=== PATIENT | male | born 1950 | race Caucasian/White ===

== ENCOUNTER 2023-06-04 12:17 | Day surgery (SDC) | payer MEDICARE, SELFPAY ==
--- NOTE | 2023-05-31 14:20 | PTCARENOTE ---
reviewed scanned ECG from 12/13/22; no actions requested.
[2023-06-04] VITALS (9 sets, daily range): BP systolic 119–162; BP diastolic 53–64; BMI 27.9
[2023-06-04 13:04] LABS: Hematocrit 35.1 % (39.0-52.0); Hemoglobin 11.6 g/dL (13.0-18.0); Mean Corpuscular Hgb 36.3 pg (27.0-31.0); Mean Corpuscular Volume 109.7 fL (80.0-94.0); Mean Platelet Volume 10.2 fL (7.4-10.4); Platelet Count 198 10^3/uL (130-400); Red Cell Dist. Width 14.4 % (11.5-14.5)
[2023-06-04 13:05] LABS: INR 0.98; PT 13.1 Sec (11.4-14.6)
[2023-06-04 13:06] LABS: APTT 30.9 Sec (23.4-35.0)
[2023-06-04 13:12] LABS: Blood Urea Nitrogen 41 mg/dl (9-20); Calcium 9.5 mg/dl (8.4-10.2); Carbon Dioxide 37 mmol/L (22-30); Chloride 95 mmol/L (98-107); Glucose 92 mg/dl (70-99); Potassium 4.6 mmol/L (3.5-5.1); Sodium 139 mmol/L (135-145); eGFR 7.23
[2023-06-04] MEDS: NSS 500 IV (13:19)
[2023-06-04] MEDS: PERIDEX 0.12% ORAL RINSE 15 ML PO (13:19)
[2023-06-04] MEDS: BACTROBAN NASAL 1 GRAM NASAL (13:19)
[2023-06-04] MEDS: VANCOCIN 200 IV (13:24)
--- NOTE | 2023-06-04 16:42 | W.SUR.PREOP ---
Pre-Operative Surgical Note
-
I have examined this patient prior to the performance of the scheduled procedure.
The patient's condition is unchanged from the time of the current History and
Physical and the patient is able to undergo the scheduled procedure.
--- NOTE | 2023-06-04 16:50 | OR.RPT ---
Operative Report
Operative Report
Date of Operation: 06/04/2023
Pre Op Diagnosis: Left upper extremity arteriovenous fistula for hemodialysis with report of problematic dialysis sessions
Post Op Diagnosis: Left upper extremity arteriovenous fistula for hemodialysis with report of problematic dialysis sessions
Procedure:
1.) Diagnostic left upper extremity fistulogram
2.) Central venogram
3.) Ultrasound guided access to the left upper arm AV fistula
Surgeon: Luis Alberto Cole III, MD
Crocodile Farmer: Vinh Faust MD PGY-1
Anesthesia: Sedation/local
Complications: None
Fluoroscopy:
2.4 minutes
12 mGy
3.03 DAP
History and Indications for Procedure: 73-year-old male with left upper extremity brachiocephalic AV fistula. On a recent visit to the office he reported recommendation from his dialysis center to have a fistulogram for problematic dialysis
sessions and history of prior fistulograms at an outside access center
Procedure in Detail: Bryan Saini was correctly identified and placed supine on the operating table. After adequate induction of anesthesia the left was positioned, prepped and draped in the usual sterile fashion. Preoperative antibiotics were
administered. A timeout procedure was performed with the nursing and anesthesia staff confirming the patient�s identity as well as the nature and laterality of the procedure.
Intraoperative ultrasound was performed on the AV access. This was a brachiocephalic arteriovenous fistula. Ultrasound demonstrated a patent fistula.
I identified a puncture site along the proximal fistula and infiltrated local anesthesia at this site. Under ultrasound guidance I accessed the fistula with a micropuncture needle facing towards the venous outflow and placed the micropuncture
sheath. I performed a fistulogram through the micropuncture sheath which demonstrated the following:
Fistulogram: Patent fistula with brisk flow through the cephalic vein. Patent cephalic arch. No evidence of venous outflow stenosis.
Central venogram: Widely patent central venous system with brisk flow and no evidence of stenosis.
A reflux fistulogram was performed by compressing the venous outflow of the fistula. 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 The anastomosis was patent with reflux of contrast
into the brachial artery and no clear evidence of stenosis.
Satisfied with this diagnostic result I then concluded the procedure. The micropuncture sheath was removed and direct manual pressure was held over the puncture site. Hemostasis was achieved. A sterile dressing was applied.
The patient tolerated the procedure well and was taken to the PACU in stable condition
Attestation: I was present and responsible for the entire procedure
Signed:
Luis Alberto Cole III, MD
[facility]
[phone] (cell)
== END 2023-06-04 17:58 | disposition home or self-care (01) ==
LOC: CATH 12:17
PROVIDERS: ATTENDING PHYSICIAN Surgery Vascular Surgery; FAMILY PHYSICIAN Family Medicine
DX: T82.9XXA Unspecified complication of cardiac and vascular prosthetic device, implant and graft, initial encounter (principal); Y83.2 Surgical operation with anastomosis, bypass or graft as the cause of abnormal reaction of the patient, or of later complication, without mention of misadventure at the time of the procedure; I12.9 Hypertensive chronic kidney disease with stage 1 through stage 4 chronic kidney disease, or unspecified chronic kidney disease; N18.4 Chronic kidney disease, stage 4 (severe); I25.10 Atherosclerotic heart disease of native coronary artery without angina pectoris; Z95.1 Presence of aortocoronary bypass graft; Z99.2 Dependence on renal dialysis; Z79.82 Long term (current) use of aspirin; Z79.02 Long term (current) use of antithrombotics/antiplatelets
CPT/HCPCS: 36901; 76937; 80048; 85027; 85610; 85730; 86850; 86900; 86901; Q9967

== ENCOUNTER → 2023-06-06 12:48 | Outpatient (REF) | payer MEDICARE, SELFPAY | LOC: DHVS 12:48 | PROVIDERS: ATTENDING PHYSICIAN Surgery Vascular Surgery | DX: I71.43 Infrarenal abdominal aortic aneurysm, without rupture (principal) | CPT/HCPCS: 76770; 93922; 93925 ==

== ENCOUNTER → 2023-07-02 12:43 | Outpatient (REF) | payer MEDICARE, SELFPAY | LOC: RAD 12:43 | PROVIDERS: ATTENDING PHYSICIAN Surgery Vascular Surgery; FAMILY PHYSICIAN Family Medicine | DX: I65.22 Occlusion and stenosis of left carotid artery (principal); I65.21 Occlusion and stenosis of right carotid artery | CPT/HCPCS: 70496; 70498; Q9967 ==

== ENCOUNTER 2023-08-16 17:39 | Inpatient (IN) | payer MEDICARE, SELFPAY ==
[2023-08-16 13:32] VITALS: BP 115/54
[2023-08-16 14:07] LABS: % Basophils 0.6 % (0-2); % Eosinophils 1.3 % (0-6); % Immature Granulocytes 0.3 % (0-0.5); % Lymphocytes 20.6 % (20.5-51.1); % Monocytes 7.7 % (1.7-9.3); % Neutrophils 69.5 % (42.2-75.2); Absolute Eosinophils 0.1 10^3/uL (0-0.7); Absolute Lymphocytes 1.5 10^3/uL (1.2-3.4); Absolute Monocytes 0.5 10^3/uL (0.1-0.6); Absolute Neutrophils 4.9 10^3/uL (1.4-6.5); Hematocrit 22.1 % (39.0-52.0); Hemoglobin 7.3 g/dL (13.0-18.0); Mean Corpuscular Hgb 35.8 pg (27.0-31.0); Mean Corpuscular Volume 108.3 fL (80.0-94.0); Mean Platelet Volume 10.4 fL (7.4-10.4); Nucleated Red Blood Cells % 0 % (-); Platelet Count 198 10^3/uL (130-400); Red Blood Cell Count 2.04 10^6/uL (4.70-6.10); Red Cell Dist. Width 14.4 % (11.5-14.5); White Blood Cell Count 7.1 10^3/uL (4.8-10.8)
[2023-08-16 14:14] LABS: ALT (SGPT) 21 U/L (0-50); AST (SGOT) 26 U/L (17-59); Albumin 3.5 g/dl (3.5-5.0); Alkaline Phosphatase 99 U/L (38-126); Blood Urea Nitrogen 35 mg/dl (9-20); Calcium 8.8 mg/dl (8.4-10.2); Glucose 125 mg/dl (70-99); Sodium 131 mmol/L (135-145); Total Bilirubin 0.5 mg/dl (0.2-1.3); Total Protein 6.3 g/dl (6.3-8.2); eGFR 18.07
[2023-08-16 14:27] LABS: Carbon Dioxide 31 mmol/L (22-30); Chloride 95 mmol/L (98-107); Potassium 4.8 mmol/L (3.5-5.1)
[2023-08-16 14:28] LABS: Troponin I 0.086 ng/ml
--- NOTE | 2023-08-16 15:56 | ED.GENMED ---
History of Present Illness
General
Chief Complaint: Breathing Problem
Source: patient
Exam Limitations: none
Time Seen by Provider: 08/16/23 14:46
Nursing documentation reviewed up to this point in time: agreed with
Travel History
Have you had any contact with someone who has COVID-19?: No
Do you have any symptoms of coronavirus? Fever > 100 degrees, chills, cough, shortness of breath, sore throat, loss of taste or smell, muscle aches, or headache?: No
History of Present Illness
History of Present Illness:
73-year-old male with a history of end-stage renal disease on hemodialysis Saturday, CHF with an EF of 20%, CAD presents for exertional dyspnea and fatigue over the last 3 days as well as 2 episodes of black stool. Patient says he
had no abdominal discomfort but noticed that his stool was very dark 2 days ago. He did not have a BM yesterday but then moved his bowels again today and it was black. Patient has never had this before. He has no history of peptic ulcer disease,
he is not anticoagulated. He did report that he got dialyzed with a full treatment today and went home and it took him about 5 minutes to change into his pajamas which is unusual, he was overall very fatigued. And then following that around 1130
he felt a mild chest discomfort. It resolved within a few minutes.
He has never had an endoscopy before.
He is not bleeding from anywhere else. He was actually unaware that he has been anemic. Previous hemoglobins are in the 9-11 range. The last time we have blood work was from May 2023 with a hemoglobin of 11. He says he was not told at
dialysis that he is anemic
Patient does no make urine
Phy Exam
Physical Exam
Physical Exam:
GENERAL: Alert , in no apparent distress
EYE: pupils equal and reactive, pale conjunctiva
NECK: Supple
ENT: o/p clr, mmm.
CARDIAC: Regular rate and rhythm .+murmur systolic
mild nonpitting edema b/l LE;
LUNGS: Clear breath sounds bilaterally, no acute respiratory distress, no wheezes/rales/rhonchi
ABDOMEN: Soft, without focal tenderness, no r/g, no cvat, normal bowel sounds
HEME POS BLACK STOOL RECTAL VAULT
NEUROLOGICAL: Alert and oriented, no focal neuro deficits
SKIN: Warm and dry, skin intact. pale
MUSCULOSKELETAL: mild edema, well perfused. neg dany's sign
PSYCH: Normal and appropriate interaction.
Scores
Heart Failure Risk
Heart Failure Risk Score: Not Applicable
Course
Orders/Labs/Results
Orders:
Orders
08/16/23 13:37
Electrocardiogram (*1) Urgent
Reason for Study: Shortness of Breath
EKG- Treatment ONCE
08/16/23 13:48
CMP [Comprehensive Metabolic Panel] Urgent
Complete Blood Count/With Diff Urgent
Troponin I Urgent
08/16/23 15:54
Blood Bank Products [* Blood Bank Products] Urgent
Blood Bank Products: *Packed RBC Leuko(PRBC's)
Quantity: 1
Transfuse Today: Yes
Reason: Anemia
08/16/23 15:58
CR Chest - 2 Views Urgent
Comment:
Reason For Exam: SOB,H/O CHF
08/16/23 16:00
Pantoprazole 80 mg/100 ml Nss [Protonix] 80 mg in 100 ml IV Q10H
08/16/23 16:47
Type And Crossmatch Urgent
Abnormal Lab Results
08/16/23
13:48
RBC 2.04 L 10^6/uL
(4.70-6.10)
Hgb 7.3 L g/dL
(13.0-18.0)
Hct 22.1 L %
(39.0-52.0)
MCV 108.3 H fL
(80.0-94.0)
MCH 35.8 H pg
(27.0-31.0)
Sodium 131 L mmol/L
(135-145)
Chloride 95 L mmol/L
(98-107)
Carbon Dioxide 31 H mmol/L
(22-30)
BUN 35 H mg/dl
(9-20)
Creatinine 3.4 H mg/dL
(0.7-1.3)
Glucose 125 H mg/dl
(70-99)
Troponin I 0.086 H* ng/ml
08/16/23 13:48
08/16/23 13:48
Vital Signs
Initial and Last Documented VS:
Initial Vital Signs
Temp Pulse Resp BP Pulse Ox
97.6 F 91 18 115/54 100
08/16/23 13:32 08/16/23 13:32 08/16/23 13:32 08/16/23 13:32 08/16/23 13:32
Last Documented Vital Signs
Temp Pulse Resp BP Pulse Ox
97.6 F 91 18 115/54 100
08/16/23 13:32 08/16/23 13:32 08/16/23 13:32 08/16/23 13:32 08/16/23 13:32
MDM/Problems Addressed
Differential Diagnosis Includes:
GI BLEED, SYMPTOMATIC ANEMIA, NSTEMI,
MDM/Problems Addressed:
73 y/o M esrd on hd m/w/f, CHF ef 20%, doesn't make urine; here with fatigue x 3 days with black stool x 2; not anticoag; vitals stable, hg 7.7 down from 11 (may 2023); heme pos black stool in vault;
pt with symptomatic anemia, and thus risk/benefit of transufinos discussed, pt agreeable and consented for blood, getting protonix drip, GI attening made aware
; minimal trop bump, lower than his previous trops; so unlikely to be significant;
*Critical Care Note
Total Time (30-74mins, 75-104mins- exclusive of procedures): Not Applicable
ED Attending Note
-
Portions of this chart may have been created with voice recognition software.� Occasional wrong word or��sound alike� substitutions may have occurred due to the inherent limitations of voice recognition software.
Discharge Plan
Departure
Patient Disposition: Admit
Date of Disposition: 08/16/23
Time of Disposition: 16:01
Admit to: Telemetry
Presentation/result/management discussed w/ accepting MD/DO: Hospitalist
Condition: Fair
Covid-19: Not Applicable
Discharge Problem:
GI bleed, Symptomatic anemia
Prescriptions:
No Action
atorvastatin 80 MG tablet
80 mg PO DAILY
tamsulosin [Flomax] 0.4 MG capsule
0.4 mg PO HS
cholecalciferol (vitamin D3) [Vitamin D3] 1,000 UNIT capsule
1,000 unit PO DAILY
cetirizine 10 MG tablet
10 mg PO DAILYPRN PRN (Reason: allergies)
ezetimibe 10 MG tablet
10 mg PO DAILY
cyanocobalamin (vitamin B-12) 1,000 MCG tablet
1,000 mcg PO DAILY Qty: 30 0RF
aspirin 81 MG tablet,chewable
81 mg PO DAILY Qty: 0 0RF
Brilinta 90 MG tablet
90 mg PO BID Qty: 60 0RF
febuxostat 40 MG tablet
40 mg PO DAILY
sevelamer carbonate [Renvela] 800 mg Tablet
2,400 mg PO MEALS
ketotifen fumarate 0.025 % (0.035 %) Drops
1 drp BOTH EYES DAILY
docusate sodium 100 mg Tablet
100 mg PO BID
alprazolam 0.5 MG tablet
0.5 mg PO HSPRN PRN (Reason: anxiety)
Entresto 24-26 mg Tablet
1 tab PO QPM
Discharge Date and Time
Print Language: BRUNEIAN
[2023-08-16] MEDS: PROTONIX 100 IV (16:48)
--- NOTE | 2023-08-16 17:33 | HPS.HSE ---
Family Physician
-
Family Physician: Billy Lennon
Chief Complaint
-
Weakness, tiredness and black stool
History of Present Illness
Patient with history of CAD s/p CABG, coronary stents, PAD s/p prior aortic stent, end-stage renal disease on hemodialysis started noticing weakness , and tiredness for the last 3 to 4 days.
After hemodialysis session today he felt very exhausted. He was getting shortness of breath with exertion. He was having some nonspecific left-sided chest discomfort but also was having a lot of burping on last and Saturday. Denies prior
history of GERD or peptic ulcer disease.
He takes aspirin and Brilinta for a while now. No prior history of stomach symptoms with them.
Never had a GI bleed but on Saturday he noticed black stools in order for.
Denies any dizziness. No nausea vomiting. No abdominal pain.
In the ER is heme positive dark stools noted. He is newly anemic with hemoglobin 7.7. Currently denying any chest pain.
Medical History
Past Medical History
Past Medical History: Reports CAD, COPD (EMPHYSEMA), HTN and Other (PAD)
Past Surgical History: Reports Other (CABG,Coronary stents, aorta stent, Left CEA )
Social History
Tobacco: Non-smoker
Alcohol: None
Drug: None
Personal:
Living: With Family
Family History
Family History: Not pertinent
Allergies / Home Medications
Allergies reflects when Allergies were last updated in [employer].
Home Medications with original date entered in [employer]
Allergy/Medication List:
Allergies
Allergy/AdvReac Type Severity Reaction Status Date / Time
clopidogrel bisulfate Allergy pt states Verified 06/04/23 13:29
[From Plavix] he get
very weak
and pale
after
taking,
nausea
Iodinated Contrast Media Allergy PANCREATITS Verified 06/04/23 13:29
POST
CARDIAC
CATH
penicillin V potassium Allergy throat Verified 06/04/23 13:29
[From Jackie Cuadra] closing/
anaphylaxis
Home Medications
atorvastatin 80 mg tablet 80 mg PO DAILY High cholesterol 02/05/20
cholecalciferol (vitamin D3) 25 mcg (1,000 unit) capsule (Vitamin D3) 1,000 unit PO DAILY Supplement 02/05/20
tamsulosin 0.4 mg capsule (Flomax) 0.4 mg PO HS Urinary issue 02/05/20
cetirizine 10 mg tablet 10 mg PO DAILYPRN PRN allergies 07/29/20
ezetimibe 10 mg tablet 10 mg PO DAILY High cholesterol 07/29/20
aspirin 81 mg chewable tablet 81 mg PO DAILY Blood clot prevention/tx #0 tabs 08/02/20
cyanocobalamin (vitamin B-12) 1,000 mcg tablet 1,000 mcg PO DAILY Supplement #30 tabs 08/02/20
ticagrelor 90 mg tablet (Brilinta) 90 mg PO BID Blood clot prevention/tx #60 tabs 08/02/20
febuxostat 40 mg tablet 40 mg PO DAILY Gout 08/29/21
sevelamer carbonate 800 mg tablet (Renvela) 2,400 mg PO MEALS 01/30/22
alprazolam 0.5 mg tablet 0.5 mg PO HSPRN PRN anxiety 05/30/23
docusate sodium 100 mg tablet 100 mg PO BID 05/30/23
ketotifen fumarate 0.025 % (0.035 %) eye drops 1 drp BOTH EYES DAILY 05/30/23
sacubitril 24 mg-valsartan 26 mg tablet (Entresto) 1 tab PO QPM 08/16/23
Review of Systems
-
A 12 point ROS was completed and negative except as noted: Yes
Physical Exam
Vital Signs
Vital Signs
Temp Pulse Resp BP Pulse Ox
97.6 F 91 18 115/54 100
08/16/23 13:32 08/16/23 13:32 08/16/23 13:32 08/16/23 13:32 08/16/23 13:32
Physical Exam
General: No Apparent Distress
HEENT: Moist mucous membranes
Respiratory: Clear
Cardiac: S1/S2 and Regular Rhythm; No Tachycardia or Murmur
GI: Soft, Non Tender, Non Distended and Normal Bowel Sounds
Musculoskeletal: No Edema
Neuro: AO x 3 and No Motor Deficits
Psych: Calm
Laboratory Results
-
08/16/23 13:48
08/16/23 13:48
Laboratory Results
Total Bilirubin 0.5 mg/dl (0.2-1.3) 08/16/23 13:48
AST 26 U/L (17-59) 08/16/23 13:48
ALT 21 U/L (0-50) 08/16/23 13:48
Alkaline Phosphatase 99 U/L (38-126) 08/16/23 13:48
Troponin I 0.086 ng/ml H* 08/16/23 13:48
Data Reviewed
-
Lab Data: Labs Reviewed by me
Impression/Plan
-
Acute GI bleed with acute blood loss anemia.
Patient using aspirin and Brilinta. Rule out upper GI bleed.
Hemodynamically stable.
Keep him n.p.o., start on IV Protonix drip.
Patient ordered for 1 unit of PRBC with symptomatic anemia-follow H&H closely.
Consult GI.
CAD with prior CABG and coronary stents
PAD with prior aortic stent
Hold aspirin and Brilinta. Consult cardiology.
Patient has nonspecific left-sided chest pain at home but currently none. Indeterminate troponins noted. Trend troponins.
End-stage renal disease on hemodialysis-he is on hemodialysis Saturday and he finished his full hemodialysis today. No evidence of fluid overload.
Hypertension-hold antihypertensive with GI bleed and follow blood pressure readings closely.
Full code
Discussed with family at bedside
[2023-08-16 18:35] VITALS: BP 126/60; BMI 26.0
[2023-08-16 19:01] VITALS: BMI 26.0
[2023-08-16 19:50] LABS: Hematocrit 19.4 % (39.0-52.0); Hemoglobin 6.5 g/dL (13.0-18.0)
[2023-08-16 19:53] VITALS: BP 108/46; BP 131/61; BP 133/59; PULSE 103; PULSE 118; PULSE 90
[2023-08-16 20:15] LABS: Troponin I 0.143 ng/ml
[2023-08-16 20:45] VITALS: BP 108/46
[2023-08-16 21:04] VITALS: BP 145/61
[2023-08-16] MEDS: MYLICON 80 MG PO (21:06)
--- NOTE | 2023-08-16 21:30 | PTCARENOTE ---
Received care of patient at change of shift. Pt AAOx3, VSS. 194 Hgb resulted at 6.5. 1 uPRBC hung at 2048. Pt reports being extremely gassy since , causing pain in his back and shoulders. MANAGER AGRICULTURAL Zulma Hastings notified, Simethicone ordered.
Pt reports relief post administration. Pt oriented to room, call galvez and plan of care.
[2023-08-17] VITALS (17 sets, daily range): BP systolic 116–159; BP diastolic 55–76; PULSE 83–114
[2023-08-17] MEDS: PROTONIX 100 IV ×3 (03:59→22:34)
[2023-08-17 04:24] LABS: Mean Corp Hgb Conc. 33.3 g/dL (33.0-37.0); Mean Corpuscular Hgb 33.5 pg (27.0-31.0); Mean Corpuscular Volume 100.5 fL (80.0-94.0); Mean Platelet Volume 10.2 fL (7.4-10.4); Platelet Count 178 10^3/uL (130-400); Red Blood Cell Count 2.09 10^6/uL (4.70-6.10); Red Cell Dist. Width 20.2 % (11.5-14.5); White Blood Cell Count 7.6 10^3/uL (4.8-10.8)
[2023-08-17 04:48] LABS: Blood Urea Nitrogen 66 mg/dl (9-20); Calcium 8.2 mg/dl (8.4-10.2); Carbon Dioxide 28 mmol/L (22-30); Chloride 101 mmol/L (98-107); Estimated Creatinine Clearance 14 ml/min; Glucose 96 mg/dl (70-99); Potassium 4.9 mmol/L (3.5-5.1); Sodium 136 mmol/L (135-145); eGFR 13.26
[2023-08-17 05:24] LABS: Hepatitis C Antibody Negative (Negative)
--- NOTE | 2023-08-17 08:50 | CON.GI ---
Addendum entered and electronically signed by Lakisha Mendez Do, MD 08/17/23 11:42:
I saw and examined the patient.
The HOT MILL TIN ROLLER's note was reviewed and I agree with the note.
Comment: Bryan is a 73yo M with h/o CAD s/p CABG on brilinta, TIA, PAD, AAA, COPD and ESRD on HD who presents for new black stools with Hbg of 6.5 from baseline of 9-11. He denies triggers such as change in diet or new meds. No abd pain,
nausea or vomiting. He does at baseline use brillinta and ASA. He is managed by Dr Morton in [place] [facility]. Vitals stable. obese abdomen, NTTP, NABS arms bilaterally diffusely bruised and ecchymotic. Labs reviewed. No prior EGD.
Colonoscopy was >10yrs ago
Impression
- Melena suspect UGI source
Ddx includes AVMS (kam given h/o ESRD on HD). Also consider PUD
- Chronic anticoagulation
Brillinta 4/12 AM
- CAD s/p CABG
- PAD
- AAA
- COPD
- ESRD on HD
- CEA repair
Recommendations
- CLD
- Protonix gtt
- Serial H/H. Monitor stool output
- Add on iron panel and vit B12, folate
- Hold ASA and brillinta
- Appreciate cardiology recs
- If deemed acceptable risk plan for EGD saturday. If neg colonoscopy on /Sat.
Will follow with you
Original Note:
Consultation
-
Date/Time Consultation Requested: 08/16/23 1815
Date/Time Consultation Performed: 08/17/23 0850
Requesting Provider: Robert Herrera MD
Performing Provider: THERESA Lamar, Lakisha Fernández MD
Reason for Consultation: black stools/ GI bleed
Medical History
Chief Complaint / HPI
Chief Complaint: black stool
History of Present Illness:
Pt is a 73yo with hx CAD, prior CABG/stents, AAA with prior endovascular repair on longstanding ASA and Brilinta, COPD/emphysema, prior CA, post-op TIA, diverticulosis, HTN, PAD. ESRD on HD with onset of weakness, and fatigue with shortness of
breath. On admission noted with drop in hbg to 6.5( baseline 9-11) with BUN 66 higher than baseline. Pt also increased troponin to 1.520. Pt states symptoms began on Saturday with noted very black stools that become loose with belching and
chest discomfort. He also felt weak with dizziness prior to admission. Pt otherwise denies hx GI bleeding, no dysphagia, nausea, vomiting, abdominal pain, constipation, or red stools. No hx EGD in past. colonoscopy last 10 years ago recalls as
normal. Denies NSAID use other than daily 81mg ASA. ER rectal exam-black heme + no prior pepto use.
Past Medical History
Past Medical History: CAD, COPD (emphysema), CVA (post -op TIA), HTN, CA, Renal Failure (ESRD on HD) and Other (PAD, diverticulosis)
Past Surgical History: Cardiac (CABG, stents) and Other (left CEA, AAA with endovascular repair )
Social History
Tobacco: Former Smoker (quit 1989 )
Alcohol: None
Drug: None
Living: With Family
Employment: Retired
Family History
Family History: Other (no family hx colon Ca or polyps)
Allergies / Home Medications
Allergy/AdvReac Type Severity Reaction Status Date / Time
clopidogrel bisulfate Allergy pt states Verified 06/04/23 13:29
[From Plavix] he get
very weak
and pale
after
taking,
nausea
Iodinated Contrast Media Allergy PANCREATITS Verified 06/04/23 13:29
POST
CARDIAC
CATH
penicillin V potassium Allergy throat Verified 06/04/23 13:29
[From Pen-Vee K] closing/
anaphylaxis
�Medication �Instructions �Recorded
atorvastatin 80 mg tablet 80 mg PO DAILY High cholesterol 02/05/20
cholecalciferol (vitamin D3) 25 1,000 unit PO DAILY Supplement 02/05/20
mcg (1,000 unit) capsule (Vitamin
D3)
tamsulosin 0.4 mg capsule (Flomax) 0.4 mg PO HS Urinary issue 02/05/20
cetirizine 10 mg tablet 10 mg PO DAILYPRN PRN allergies 07/29/20
ezetimibe 10 mg tablet 10 mg PO DAILY High cholesterol 07/29/20
aspirin 81 mg chewable tablet 81 mg PO DAILY Blood clot 08/02/20
prevention/tx #0 tabs
cyanocobalamin (vitamin B-12) 1,000 mcg PO DAILY Supplement #30 08/02/20
1,000 mcg tablet tabs
ticagrelor 90 mg tablet (Brilinta) 90 mg PO BID Blood clot 08/02/20
prevention/tx #60 tabs
febuxostat 40 mg tablet 40 mg PO DAILY Gout 08/29/21
sevelamer carbonate 800 mg tablet 2,400 mg PO MEALS phosphate binder 01/30/22
(Renvela)
alprazolam 0.5 mg tablet 0.5 mg PO HSPRN PRN anxiety 05/30/23
docusate sodium 100 mg tablet 100 mg PO BID Constipation 05/30/23
ketotifen fumarate 0.025 % (0.035 1 drp BOTH EYES DAILY Eye Condition 05/30/23
%) eye drops
sacubitril 24 mg-valsartan 26 mg 1 tab PO QPM Heart Failure 08/16/23
tablet (Entresto)
carvedilol 6.25 mg tablet 6.25 mg QHS Blood Pressure 08/17/23
Review of Systems
-
History Source: Patient
Constitutional: Reports No Symptoms
EENT: Reports No Symptoms
Respiratory: Reports Trouble Breathing
Cardiac: Reports No Symptoms
Abdomen/GI: Reports Diarrhea and Black Stools
: Reports No Symptoms
Musculoskeletal: Reports No Symptoms
Skin: Reports No Symptoms
Neurological: Reports Dizzy and Weakness
Endocrine: Reports No Symptoms
Hematologic/Lymphatic: Reports Bleeding
Vital Signs
Temp Pulse Resp BP Pulse Ox
98.0 F 92 18 143/64 100
08/17/23 07:45 08/17/23 07:45 08/17/23 07:45 08/17/23 07:45 08/17/23 07:25
Physical Exam
Exam
General: Well Developed, Well Nourished, No Apparent Distress and Other (pale appearing)
HEENT: Normocephalic and Anicteric
Respiratory: Clear
Cardiac: Regular Rhythm
GI: Soft, Non Tender and Non Distended
Rectal: Other (heme + black in ER)
Musculoskeletal: No Clubbing and No Cyanosis
Skin: Warm and Dry
Neuro: Awake, Alert and AO x 3
Psych: Calm
Results
WBC 7.6 10^3/uL (4.8-10.8) 08/17/23 04:03
Hgb 7.0 g/dL (13.0-18.0) L 08/17/23 04:03
Hgb Cancelled 08/17/23 04:03
Hct 21.0 % (39.0-52.0) L 08/17/23 04:03
Hct Cancelled 08/17/23 04:03
MCV 100.5 fL (80.0-94.0) H 08/17/23 04:03
Plt Count 178 10^3/uL (130-400) 08/17/23 04:03
Absolute Neuts (auto) 4.9 10^3/uL (1.4-6.5) 08/16/23 13:48
Sodium 136 mmol/L (135-145) 08/17/23 04:03
Potassium 4.9 mmol/L (3.5-5.1) 04/13/24 04:03
Chloride 101 mmol/L (98-107) 08/17/23 04:03
Carbon Dioxide 28 mmol/L (22-30) 08/17/23 04:03
BUN 66 mg/dl (9-20) H 08/17/23 04:03
Creatinine 4.4 mg/dL (0.7-1.3) H* 08/17/23 04:03
Calcium 8.2 mg/dl (8.4-10.2) L 08/17/23 04:03
Total Bilirubin 0.5 mg/dl (0.2-1.3) 08/16/23 13:48
AST 26 U/L (17-59) 08/16/23 13:48
ALT 21 U/L (0-50) 08/16/23 13:48
Alkaline Phosphatase 99 U/L (38-126) 08/16/23 13:48
Hepatitis C Antibody Negative (Negative) 08/17/23 04:03
Diagnostic Image Results:
05/2022 CT Abd/pelvis Angio W/wo Iv
1).There is patent aortobiiliac graft extending from the level of the renal artery origins to the iliac bifurcations traversing thrombosed 4.6 x 4.2 cm infrarenal abdominal aortic aneurysm which is decreased in size when compared with the prior
study. As on the prior study, there is a wide necked saccular component to the anterior aspect of the aneurysm which is also thrombosed and decreased in size when compared with prior study.
2). There is no endoleak.
3). There is a partially calcific atherosclerotic plaque at both renal arteries associated with moderate-severe bilateral renal artery stenosis with moderate bilateral renal cortical atrophy.
4). There is extensive partially calcific atherosclerotic plaque at the origins of the celiac axis and SMA as well as in the external iliac arteries bilaterally associated with moderate-severe stenosis
5). There are emphysematous changes with subpleural blebs at the posterior lung bases
6). There is stable 1.8 cm left renal cyst
7). Diverticuli are present in the colon with no CT evidence of diverticulitis
8). Degenerative disc disease at L4-5
Prior GI Procedures:
EGD: none
Colonoscopy:
Assessment / Plan
-
Pt is a 73yo with hx CAD, prior CABG/stents, AAA with prior endovascular repair on longstanding ASA and Brilinta, COPD/emphysema, prior CA, post-op TIA, diverticulosis, HTN, PAD. ESRD on HD with onset of weakness, and fatigue with shorteness of
breath. On admission noted with drop in hbg to 6.5( baseline 9-11) and BUN 66 higher than baseline. Pt also increased troponin to 1.520. Pt states symptoms began on Saturday with noted very black stools that become loose with belching and chest
discomfort. He also felt weak with dizziness prior to admission. Pt otherwise denies hx GI bleeding, no dysphagia, nausea, vomiting, abdominal pain, constipation, or red stools. No hx EGD in past. colonoscopy last 10 years ago recalls as
normal. Denies NSAID use other than daily 81mg ASA. ER rectal exam-black heme + no prior pepto use.
-melena
-symptomatic anemia with acute blood loss with hx chronic anemia with renal disease
-increased troponin
-CAD/CABG/stent on chronic Brilinta
-AAA with endovascular repair
-PAD
-CEA with carotid disease on CT neck 06/2023
other medical problems:
-COPD
-prior CA
-post-op TIA
-diverticulosis
-HTN
-ESRD on HD
PLAN:
Etiology of anemia and melena with concern for upper GI bleeding with some increased BUN, dizziness etc-- some baseline anemia with renal disease but now drop on admission
await cardiology evaluation with elevated troponin
last Brilinta 4/12 AM ok to continue ASA if needed
will review with Dr. Fernández for EGD and timing
NPO-- in no plan for today consider clear diet
cont PPI gtt
trend hgb s/p 2 units given hbg 6.5-7
NSAID avoidance
will follow
-
-
-
Thank you for consultation and allowing me to participate in the patient's care. Please call the substation operator apprentice GI physician during the after hours with any questions or concerns.
--- NOTE | 2023-08-17 10:21 | CON.CAR ---
Addendum entered and electronically signed by Vince Giles MD 08/17/23 12:07:
I saw and examined the patient.
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
Comment: 73M with GIB while on DAPT. PMH notable for severe PAD, severe CAD, and ICM EF 30%. DAPT started after 2019 and, I think, continued because he has severe CAD/PAD
- Hold ticagrelor
- continue ASA if possible
- Troponin noted. It is worsened by ESRD. Fortunately, he is chest pain free/clinically stable
- There is no cardiac contraindication to EGD/colonoscopy
Original Note:
Consultation
Consultation Request
Date/Time Consultation Requested: 08/16/231841
Date/Time Consultation Performed: 08/17/23 1020
Requesting Provider: Dr. Herrera
Performing Provider: Echo CARDENAS for Dr. Giles
Reason for Consultation: GIB on DAPT with hx CAD
Medical History
-
Chief Complaint: black stool
History of Present Illness:
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
medically managed, ischemic cardiomyopathy EF 30-35%, ICD in place, chronic systolic HF, ESRD on HD, HTN, hyperlipidemia, significant PAD with carotid artery disease (carotid stent 07/2012 and left carotid endarterectomy 2009), chronic right common
carotid artery occlusion, AAA with EVAR and bilateral iliac stents 09/05/21 with NSTEMI with cath 09/07/2021 with multiple stents. He is here with black stools since Saturday with fatigue. He denies any CP or SOB.
Past Medical History
Past Medical History: CAD, CHF, HTN, Hypercholesterolemia, Renal Failure and Other (severe PAD)
Social History
Tobacco: Former Smoker
Family History
Family History: Reviewed & Not Pertinent
Allergies / Home Medications
Allergy/AdvReac Type Severity Reaction Status Date / Time
clopidogrel bisulfate Allergy pt states Verified 06/04/23 13:29
[From Plavix] he get
very weak
and pale
after
taking,
nausea
Iodinated Contrast Media Allergy PANCREATITS Verified 06/04/23 13:29
POST
CARDIAC
CATH
penicillin V potassium Allergy throat Verified 06/04/23 13:29
[From Pen-Vee K] closing/
anaphylaxis
�Medication �Instructions �Recorded �Confirmed �Type
atorvastatin 80 mg tablet 80 mg PO DAILY High cholesterol 02/05/20 08/16/23 History
cholecalciferol (vitamin D3) 25 1,000 unit PO DAILY Supplement 02/05/20 08/16/23 History
mcg (1,000 unit) capsule (Vitamin
D3)
tamsulosin 0.4 mg capsule (Flomax) 0.4 mg PO HS Urinary issue 02/05/20 08/16/23 History
cetirizine 10 mg tablet 10 mg PO DAILYPRN PRN allergies 07/29/20 08/16/23 History
ezetimibe 10 mg tablet 10 mg PO DAILY High cholesterol 07/29/20 08/16/23 History
aspirin 81 mg chewable tablet 81 mg PO DAILY Blood clot 08/02/20 08/16/23 Rx
prevention/tx #0 tabs
cyanocobalamin (vitamin B-12) 1,000 mcg PO DAILY Supplement #30 08/02/20 08/16/23 Rx
1,000 mcg tablet tabs
ticagrelor 90 mg tablet (Brilinta) 90 mg PO BID Blood clot 08/02/20 08/16/23 Rx
prevention/tx #60 tabs
febuxostat 40 mg tablet 40 mg PO DAILY Gout 08/29/21 08/16/23 History
sevelamer carbonate 800 mg tablet 2,400 mg PO MEALS phosphate binder 01/30/22 08/16/23 History
(Renvela)
alprazolam 0.5 mg tablet 0.5 mg PO HSPRN PRN anxiety 05/30/23 08/16/23 History
docusate sodium 100 mg tablet 100 mg PO BID Constipation 05/30/23 08/16/23 History
ketotifen fumarate 0.025 % (0.035 1 drp BOTH EYES DAILY Eye Condition 05/30/23 08/16/23 History
%) eye drops
sacubitril 24 mg-valsartan 26 mg 1 tab PO QPM Heart Failure 08/16/23 08/16/23 History
tablet (Entresto)
carvedilol 6.25 mg tablet 6.25 mg QHS Blood Pressure 08/17/23 08/17/23 History
Review of Systems
-
History Source: Patient
All other systems: Negative unless noted
Constitutional: Fatigue
Abdomen/GI: Black Stools
Physical Exam
Vital Signs
Temp Pulse Resp BP Pulse Ox
98.0 F 92 18 143/64 100
08/17/23 07:45 08/17/23 07:45 08/17/23 07:45 08/17/23 07:45 08/17/23 07:25
Lab Results
08/17/23 04:03
Troponin I 1.520 ng/ml H* 08/17/23 04:03
Physical Exam
General: Well Developed, Well Nourished and No Apparent Distress
HEENT: Normocephalic and Anicteric
Respiratory: Clear and Non Labored Respirations
Cardiac: Regular Rhythm
Musculoskeletal: No Edema
Skin: Warm and Dry
Neuro: AO x 3
Psych: Calm
Impression / Plan
-
Acute anemia with GIB: severe
-now s/p PRBC
-on IV PPI
-GI following and plans for egd (timing TBD)
Abnormal troponin:
-suspect type II MO with severe anemia (in this patient with known severe CAD)
-trend to peak
-denies any CP
-echo
CAD with history of CABG and multiple stents (last coronary intervention 2021 here per patient):
Cath 09/07/2021: Right dominant circulation with 90% in-stent restenosis of proximal RCA stent, patent vein graft segment between the RPDA and OM 3 with tandem, 90% lesions, a 90% vein graft/OM 3 anastomotic lesion, patent stent in the left main
coronary artery into the LAD with patent stents in the proximal, mid and distal LAD and a diffusely diseased circumflex system. Status post complex intervention to the 90% SVG/OM 3 anastomosis lesion (Xience Skypoint 2.75 x 15 DEBBIE, proximally
postdilated with a 3.0 NC balloon). Status post PCI to the tandem 90% SVG segment lesions (Xience Skypoint 2.75 x 28 DEBBIE, 3.0 x 12 DEBBIE, postdilated with a 3.0 NC balloon). Status post PCI to the 90% in-stent restenosis proximal RCA lesion (Xience
Skypoint 3.5 x 33 DEBBIE, postdilated with a 3.5 NC balloon). Moderately elevated filling pressures.
-denies CP or SOB
-add back baby aspirin (okay per GI note), continue statin and BB
ICM:
-EF 30-35% most recently per OV noted
-ICD in place
-meds limited by BP/renal disease per OP chart
-appears euvolemic
Complex PAD:
-hx carotid artery disease, AAA with intervention, denies any recent stenting
-follows with Dr. Cole
Data Reviewed
-
EKG: Tracing Personally Visualized and interpreted (SR with 1st degree AVB, ST and T abnormality)
Radiology: Report Reviewed by me (CXR: no acute disease of chest)
Medical Tests (Nuc Med, Echo etc): Report Reviewed by me (cath as above)
Labs: Labs Reviewed by me
[2023-08-17 10:28] LABS: Iron 185 ug/dl (49-181)
[2023-08-17 10:39] LABS: Percent Saturation 89 % (20-50); Total Iron Binding Capacity 207 ug/dl (261-462)
[2023-08-17 10:45] LABS: Hematocrit 25.5 % (39.0-52.0)
[2023-08-17 10:48] LABS: Hemoglobin 8.8 g/dL (13.0-18.0)
[2023-08-17] MEDS: LIPITOR 80 MG PO (11:37)
[2023-08-17] MEDS: LOW STRENGTH ASPIRIN 81 MG PO (11:37)
[2023-08-17] MEDS: COREG 6.25 MG PO ×2 (11:40→22:34)
--- NOTE | 2023-08-17 13:22 | W.PN.HOSP.TC ---
Today's Communication/Plan
-
Follow HH
CW PPI drip
Consult Nephrology
Assessment / Plan
Assessment / Plan
Acute GI bleed with acute blood loss anemia.
Patient using aspirin and Brilinta. Rule out upper GI bleed.
Hemodynamically stable.
cw IV Protonix drip. Diet per GI
s/p 2 units of PRBC -follow HH.
Elevated troponins -asymptomatic without chest pain or shortness of breath. Patient has nonspecific left-sided chest pain at home but currently none. Suspect type II demand ischemia from severe anemia and GI bleed. Appreciate cardiology input.
Continue with aspirin. Holding Brilinta.
CAD with prior CABG and coronary stents
PAD with prior aortic stent
End-stage renal disease on hemodialysis-he is on hemodialysis Saturday and he finished his full hemodialysis today. No evidence of fluid overload.Pt had 2 units of PRBC . Pt would like to be here till Saturday -will ask renal to see
for HD
Hypertension-hold antihypertensive with GI bleed and follow blood pressure readings closely.
DW cardiology today - trend trops to see the peak. CW ASA.
Full code
Anticipated Discharge: > 48 hours
Subjective/Interval History
-
Date of Service: August 17, 2023
had 2 BMs today 1 of which was large and black in color.
No abdominal pain.
Denies any nausea vomiting.
Denying any dizziness, shortness of breath, or chest pain.
Objective Data
-
Labs:
Laboratory Results
08/17/23 08/17/23 08/17/23
04:03 04:03 04:03
WBC 7.6
Hgb Cancelled 7.0 L
Hct Cancelled 21.0 L
Plt Count 178
Sodium 136
Potassium 4.9
Chloride 101
Carbon Dioxide 28
BUN 66 H
Creatinine 4.4 H*
Glucose 96
Calcium 8.2 L
08/17/23
10:35
WBC
Hgb 8.8 L D
Hct 25.5 L
Plt Count
Sodium
Potassium
Chloride
Carbon Dioxide
BUN
Creatinine
Glucose
Calcium
Vital Signs:
Vital Signs
Temp Pulse Resp BP Pulse Ox
98 F 85 16 138/62 95
08/17/23 11:20 08/17/23 11:40 08/17/23 11:20 08/17/23 11:40 08/17/23 11:20
I&O
08/16/23 08/17/23 08/18/23
06:59 06:59 06:59
Intake Total 620 / 620 0 / 0
Balance 620 / 620 0 / 0
Review of Systems
-
Constitutional: Denies Fever
EENT: Denies Sore Throat
Respiratory: Denies Cough
Neuro: Denies Dizzy or Headache
Physical Exam
-
General: No Apparent Distress
HEENT: Moist Mucous Membranes
Respiratory: Clear to Auscultation
Cardiac: Regular Rhythm and S1/S2
GI: Soft and Nontender
Neuro: AO x 3
Psych: Calm
Data Reviewed
-
Labs: Labs Reviewed by me
--- NOTE | 2023-08-17 14:12 | CM ---
sales branch manager reviewed patient's chart and met with patient and patient lives with spouse in a 2 story home with one step to enter, patient is independent with adl's and ambulation, patient has a walker and nocturnal oxygen from [facility], Patient goes
to HD at [facility] in [place], Sat at 6 am, patient is able to transport himself to HD. antoinette has a prescription plan and antoinette uses [facility].
PCP: Dr. Lennon.
Plan; Home when stable no needs, patient to resume HD at [facility] in [place].
--- NOTE | 2023-08-17 14:20 | W.PN.UPDATE ---
Update Note
Progress Note Update
Billing purposes
[2023-08-17 14:35] LABS: Folate 6.1 ng/ml (2.76-20); Vitamin B12 > 1000 pg/ml (239-931)
--- NOTE | 2023-08-17 17:05 | W.CON.NEPH ---
Consultation
-
Date/Time Consultation Requested: 08/17/23 13:29
Date/Time Consultation Performed: 08/17/23 5:06PM
Requesting Provider: Robert Herrera
Performing Provider: Viola Leon
Reason for Consultation: ESRD on HD
Medical History
-
Chief Complaint: ESRD on HD
History of Present Illness:
Mr. Saini is a 73YOM with PMH of CAD s/p CABG, PAD, ESRD on HD who started noticing tiredness and fatigue over the past few days. After HD on Saturday, he felt very tired and SOB as well as some chest discomfort. He did note some black stools on
Saturday. He has new anemia with Hgb 7.7.
Nephrology is consulted for ESRD management while inpatient. States that he recieved a complete treatment on Saturday.
Past Medical History
COPD
CADHTN
PAD
ESRD on HD
Past Surgical History: Other (fistula placement, CABG, stents, aorta stent, L CEA)
Social History
Tobacco: Non-Smoker
Alcohol: None
Drug: None
Personal:
Living: With Family
Family History
Family History: Not Pertinent
Allergies / Home Medications
Allergy/AdvReac Type Severity Reaction Status Date / Time
clopidogrel bisulfate Allergy pt states Verified 06/04/23 13:29
[From Plavix] he get
very weak
and pale
after
taking,
nausea
Iodinated Contrast Media Allergy PANCREATITS Verified 06/04/23 13:29
POST
CARDIAC
CATH
penicillin V potassium Allergy throat Verified 06/04/23 13:29
[From Pen-Vee K] closing/
anaphylaxis
�Medication �Instructions �Recorded �Confirmed �Type
atorvastatin 80 mg tablet 80 mg PO DAILY High cholesterol 02/05/20 08/16/23 History
cholecalciferol (vitamin D3) 25 1,000 unit PO DAILY Supplement 02/05/20 08/16/23 History
mcg (1,000 unit) capsule (Vitamin
D3)
tamsulosin 0.4 mg capsule (Flomax) 0.4 mg PO HS Urinary issue 02/05/20 08/16/23 History
cetirizine 10 mg tablet 10 mg PO DAILYPRN PRN allergies 07/29/20 08/16/23 History
ezetimibe 10 mg tablet 10 mg PO DAILY High cholesterol 07/29/20 08/16/23 History
aspirin 81 mg chewable tablet 81 mg PO DAILY Blood clot 08/02/20 08/16/23 Rx
prevention/tx #0 tabs
cyanocobalamin (vitamin B-12) 1,000 mcg PO DAILY Supplement #30 08/02/20 08/16/23 Rx
1,000 mcg tablet tabs
ticagrelor 90 mg tablet (Brilinta) 90 mg PO BID Blood clot 08/02/20 08/16/23 Rx
prevention/tx #60 tabs
febuxostat 40 mg tablet 40 mg PO DAILY Gout 08/29/21 08/16/23 History
sevelamer carbonate 800 mg tablet 2,400 mg PO MEALS phosphate binder 01/30/22 08/16/23 History
(Renvela)
alprazolam 0.5 mg tablet 0.5 mg PO HSPRN PRN anxiety 05/30/23 08/16/23 History
docusate sodium 100 mg tablet 100 mg PO BID Constipation 05/30/23 08/16/23 History
ketotifen fumarate 0.025 % (0.035 1 drp BOTH EYES DAILY Eye Condition 05/30/23 08/16/23 History
%) eye drops
sacubitril 24 mg-valsartan 26 mg 1 tab PO QPM Heart Failure 08/16/23 08/16/23 History
tablet (Entresto)
carvedilol 6.25 mg tablet 6.25 mg QHS Blood Pressure 08/17/23 08/17/23 History
Physical Exam
Vital Signs
Vital Signs
Temp Pulse Resp BP Pulse Ox
97.5 F 83 16 151/63 98
08/17/23 16:40 08/17/23 16:40 08/17/23 16:40 08/17/23 16:40 08/17/23 16:40
Lab Results
WBC 7.6 10^3/uL (4.8-10.8) 08/17/23 04:03
RBC 2.09 10^6/uL (4.70-6.10) L 08/17/23 04:03
Plt Count 178 10^3/uL (130-400) 08/17/23 04:03
Sodium 136 mmol/L (135-145) 08/17/23 04:03
Potassium 4.9 mmol/L (3.5-5.1) 08/17/23 04:03
Chloride 101 mmol/L (98-107) 08/17/23 04:03
Carbon Dioxide 28 mmol/L (22-30) 08/17/23 04:03
BUN 66 mg/dl (9-20) H 08/17/23 04:03
Creatinine 4.4 mg/dL (0.7-1.3) H* 08/17/23 04:03
eGFR 13.26 08/17/23 04:03
Glucose 96 mg/dl (70-99) 08/17/23 04:03
Calcium 8.2 mg/dl (8.4-10.2) L 08/17/23 04:03
Albumin 3.5 g/dl (3.5-5.0) 08/16/23 13:48
Physical Exam
General: AOx3
HEENT: PERRL, EOMI, Anicteric, Conjunctivae Clear, Ear/Nose Intact, Hearing Normal, Facial Symmetry and No Thyromegaly
Respiratory: Wheezes, Normal Excursion and Nonlabored Respirations
Cardiac: S1/S2, Regular Rate/Rhythm and No Edema
Breast: N/A
Abdomen: Soft, Nontender, Nondistended and Normal Bowel Sounds
Rectal: Deferred by Provider
Genito-urinary: No Costovertebral Tender
Musculoskeletal: No Clubbing, No Cyanosis and No Edema
Skin: No Rash
Neuro: Nonfocal/Grossly Intact
Psych: Mood/afflect pleasant, Insight/judgement good and Appropriate
Assessment/Plan
-
Assessment:
GIB with new anemia
CAD wityh prior stents
ESRD on HD MWF at [facility]
HTN
Plan:
- plan for HD on Saturday per his usual schedule
- on protonix gtt and recieved 2U pRCBs
- EGD for Saturday.
- if planning for colonoscopy prep, we will plan to dialyze after. tentatively /Saturday. would prefer saturday to keep patient on same HD schedule
Data Reviewed
-
Radiology: Image Personally Visualized and interpreted (CXR Clear)
Labs: Labs Reviewed by me and Discussed with Patient
Old Records: Reviewed
[2023-08-17 17:35] LABS: Hematocrit 22.9 % (39.0-52.0); Hemoglobin 7.6 g/dL (13.0-18.0)
[2023-08-17] MEDS: LIDOCAINE 4% PATCH TOPICAL (22:34)
[2023-08-18] VITALS (7 sets, daily range): BP systolic 102–157; BP diastolic 53–85; PULSE 79–85
[2023-08-18] MEDS: LIPITOR 80 MG PO (07:41)
[2023-08-18] MEDS: LOW STRENGTH ASPIRIN 81 MG PO (07:41)
[2023-08-18 08:13] LABS: % Basophils 0.6 % (0-2); % Eosinophils 2.7 % (0-6); % Immature Granulocytes 0.4 % (0-0.5); % Lymphocytes 19.4 % (20.5-51.1); % Monocytes 7.7 % (1.7-9.3); % Neutrophils 69.2 % (42.2-75.2); Absolute Basophils 0.1 10^3/uL (0-0.2); Absolute Eosinophils 0.2 10^3/uL (0-0.7); Absolute Lymphocytes 1.7 10^3/uL (1.2-3.4); Absolute Monocytes 0.7 10^3/uL (0.1-0.6); Absolute Neutrophils 5.9 10^3/uL (1.4-6.5); Hematocrit 24.1 % (39.0-52.0); Hemoglobin 8.2 g/dL (13.0-18.0); Mean Corpuscular Hgb 33.2 pg (27.0-31.0); Mean Corpuscular Volume 97.6 fL (80.0-94.0); Mean Platelet Volume 10.4 fL (7.4-10.4); Nucleated Red Blood Cells % 0.2 % (-); Platelet Count 152 10^3/uL (130-400); Red Blood Cell Count 2.47 10^6/uL (4.70-6.10); Red Cell Dist. Width 19.3 % (11.5-14.5); White Blood Cell Count 8.6 10^3/uL (4.8-10.8)
[2023-08-18 08:24] LABS: INR 1.12; PT 14.2 Sec (11.4-14.6)
--- NOTE | 2023-08-18 09:33 | W.PN.GI.CBS2 ---
Today's Communication / Plan
-
C/w CLD and NPO at [facility]
EGD tomorrow after HD
Assessment / Plan
-
Pt is a 73yo with hx CAD, prior CABG/stents, AAA with prior endovascular repair on longstanding ASA and Brilinta, COPD/emphysema, prior [place], post-op TIA, diverticulosis, HTN, PAD. ESRD on HD with onset of weakness, and fatigue with shorteness of
breath. On admission noted with drop in hbg to 6.5( baseline 9-11) and BUN 66 higher than baseline. Pt also increased troponin to 1.520. Pt states symptoms began on Saturday with noted very black stools that become loose with belching and chest
discomfort. He also felt weak with dizziness prior to admission. Pt otherwise denies hx GI bleeding, no dysphagia, nausea, vomiting, abdominal pain, constipation, or red stools. No hx EGD in past. colonoscopy last 10 years ago recalls as
normal. Denies NSAID use other than daily 81mg ASA. ER rectal exam-black heme + no prior pepto use.
Impression
-melena
ddx includes AVMs, PUD or ectasias
-symptomatic anemia with acute blood loss with hx chronic anemia with renal disease
-increased troponin
-CAD/CABG/stent on chronic Brilinta
-AAA with endovascular repair
-PAD
-CEA with carotid disease on CT neck 06/2023
-COPD
-prior [place]
-post-op TIA
-diverticulosis
-HTN
-ESRD on HD
Plan:
- C/w protonix gtt
- CLD, NPO at [facility] for EGD tomorrow after HD
- Continue to hold brillinta. Unclear if needed group home
- C/w ASA 81mg daily
- Serial H/H, uptrending after transfusion
- Appreciate cardiology recs
We will follow with you
Subjective
Subjective
Date of Service: August 18, 2023
Tolerating CLD. Reports continued dark stools, nursing note documents brown. Denies nausea/vomiting or abd pain
Objective
Data Reviewed
Laboratory Data:
Laboratory Results
08/18/23 07:54
08/17/23 04:03
Laboratory Results
PT 14.2 Sec (11.4-14.6) 08/18/23 07:54
INR 1.12 08/18/23 07:54
Total Bilirubin 0.5 mg/dl (0.2-1.3) 08/16/23 13:48
AST 26 U/L (17-59) 08/16/23 13:48
ALT 21 U/L (0-50) 08/16/23 13:48
Alkaline Phosphatase 99 U/L (38-126) 08/16/23 13:48
Vital Signs and I&O:
Vital Signs
Temp Pulse Resp BP Pulse Ox
98.2 F 80 18 102/57 96
08/18/23 07:30 08/18/23 07:30 08/18/23 07:30 08/18/23 07:30 08/18/23 07:30
I&O
08/17/23 08/18/23 08/19/23
06:59 06:59 06:59
Intake Total 620 / 620 1316 / 1316
Balance 620 / 620 1316 / 1316
Physical Exam
Physical Exam
GEN: No acute distress, conversant, pleasant
HEENT: anicteric, extraocular movements intact, clear oropharynx without exudates
GI: soft, non-distended, not tender to palpation, normal active bowel sounds, no hepatosplenomegaly
EXT: warm, well perfused, no edema bilaterally, LUE some skin tears
NEURO: AAOx3, non-focal
--- NOTE | 2023-08-18 10:23 | W.PN.HOSP.TC ---
Today's Communication/Plan
-
Follow HH
CW PPI
HD in am
Assessment / Plan
Assessment / Plan
Acute GI bleed with acute blood loss anemia.
Patient using aspirin and Brilinta. Rule out upper GI bleed.
Hemodynamically stable.
cw IV Protonix drip. Diet per GI
s/p 3 units of PRBC -follow HH.
Await Endoscopic eval
Elevated troponins -asymptomatic without chest pain or shortness of breath. Patient has nonspecific left-sided chest pain at home but currently none. Suspect type II demand ischemia from severe anemia and GI bleed. Appreciate cardiology input.
Continue with aspirin. Holding Brilinta.
CAD with prior CABG and coronary stents
PAD with prior aortic stent
End-stage renal disease on hemodialysis-he is on hemodialysis Saturday and he finished his full hemodialysis today. No evidence of fluid overload.Pt had 3 units of PRBC . Renal following -HD in am.
Hypertension-hold antihypertensive with GI bleed and follow blood pressure readings closely.
DW cardiology today - trend trops to see the peak. CW ASA.
Full code
Anticipated Discharge: 24 - 48 hours
Subjective/Interval History
-
Date of Service: August 18, 2023
Had a BM today which was black in nature. No abdominal pain. No nausea vomiting.
Objective Data
-
Labs:
Laboratory Results
08/18/23 08/18/23
06:00 07:54
WBC Pending 8.6
Hgb Pending 8.2 L
Hct Pending 24.1 L
Plt Count Pending 152
PT Pending 14.2
INR Pending 1.12
Vital Signs:
Vital Signs
Temp Pulse Resp BP Pulse Ox
98.2 F 80 18 102/57 96
08/18/23 07:30 08/18/23 07:30 08/18/23 07:30 08/18/23 07:30 08/18/23 07:30
I&O
08/17/23 08/18/23 08/19/23
06:59 06:59 06:59
Intake Total 620 / 620 1316 / 1316
Balance 620 / 620 1316 / 1316
Review of Systems
-
Respiratory: Denies Trouble Breathing
Cardiac: Denies Chest Pain
Neuro: Denies Dizzy
Physical Exam
-
General: No Apparent Distress
HEENT: Moist Mucous Membranes
Respiratory: Clear to Auscultation
Cardiac: Regular Rhythm and S1/S2
GI: Soft and Nontender
Neuro: AO x 3
Psych: Calm; Negative Confused
Data Reviewed
-
Labs: Labs Reviewed by me
--- NOTE | 2023-08-18 10:51 | W.PN.CD ---
Today's Communication / Plan
-
- There is no cardiac contraindication to EGD/colonoscopy
- Echo before discharge
Impression / Plan
-
Impression: 73M with GIB while on DAPT.
PMH notable for severe PAD, severe CAD, and ICM EF 30%. DAPT started after 2019 and, I think, continued because he has severe CAD/PAD
Plan
Acute anemia with GIB: severe
- There is no cardiac contraindication to EGD/colonoscopy
- PRBC, etc. as per primary team
Abnormal troponin:
- peak is worsened by ESRD but 9.7 a bit noticeable
- Echo before discharge
CAD with history of CABG and multiple stents (last coronary intervention 2021 here per patient):
- med rx with ASA/BB/statin
- Echo as above
ICM:
-EF 30-35% most recently per OV noted
-ICD in place
-meds limited by BP/renal disease per OP chart
-appears euvolemic
Complex PAD:
-hx carotid artery disease, AAA with intervention, denies any recent stenting
-follows with Dr. Cole
Subjective: No CP, palps, or dyspnea
Cath 09/07/2021: Right dominant circulation with 90% in-stent restenosis of proximal RCA stent, patent vein graft segment between the RPDA and OM 3 with tandem, 90% lesions, a 90% vein graft/OM 3 anastomotic lesion, patent stent in the left main
coronary artery into the LAD with patent stents in the proximal, mid and distal LAD and a diffusely diseased circumflex system. Status post complex intervention to the 90% SVG/OM 3 anastomosis lesion (Xience Skypoint 2.75 x 15 DEBBIE, proximally
postdilated with a 3.0 NC balloon). Status post PCI to the tandem 90% SVG segment lesions (Xience Skypoint 2.75 x 28 DEBBIE, 3.0 x 12 DEBBIE, postdilated with a 3.0 NC balloon). Status post PCI to the 90% in-stent restenosis proximal RCA lesion (Xience
Skypoint 3.5 x 33 DEBBIE, postdilated with a 3.5 NC balloon). Moderately elevated filling pressures.
Physical Exam
Vital Signs/Labs
Vital Signs
Temp Pulse Resp BP Pulse Ox
36.8 C 80 18 102/57 96
08/18/23 07:30 08/18/23 07:30 08/18/23 07:30 08/18/23 07:30 08/18/23 07:30
08/17/23 08/18/23 08/19/23
06:59 06:59 06:59
Actual Weight 166 lb 0.129 oz
08/18/23 07:54
08/17/23 04:03
PT 14.2 Sec (11.4-14.6) 08/18/23 07:54
INR 1.12 08/18/23 07:54
LAB Results
08/16/23 08/16/23 08/17/23
13:48 19:40 04:03
Troponin I 0.086 H* 0.143 H* D 1.520 H*
08/17/23 08/17/23 08/18/23
10:35 17:31 01:19
Troponin I 6.110 H* D 9.470 H* D 7.530 H*
Physical Exam
Constitutional: No acute distress
EENT: Anicteric and Moist mucous membranes
Cardiovascular: Rhythm & rate is regular, Pedal edema is absent, Systolic murmur absent and Diastolic murmur absent
Respiratory: Respiratory effort normal
GI: Soft, Distention absent and Non tender
Neuro/Psych: Alert
Data Reviewed
-
Date of Service: August 18, 2023
EKG: Other (tele SR with PACs/PVCs)
[2023-08-18] MEDS: PROTONIX 100 IV ×2 (11:11→19:48)
--- NOTE | 2023-08-18 13:20 | W.PN.NEPH.PH ---
Today's Communication / Plan
-
- HD tomorrow
Assessment/Plan
-
Assessment:
GIB with new anemia
CAD wityh prior stents
ESRD on HD MWF at [facility]
HTN
Plan:
- plan for HD on Saturday per his usual schedule
- on protonix gtt and recieved 2U pRCBs
- EGD for Saturday.
- if planning for colonoscopy prep, we will plan to dialyze after. tentatively /Saturday. would prefer saturday to keep patient on same HD schedule
-
-
Date of Service: August 18, 2023
CC / HPI / ROS
-
Chief Complaint:
ESRD
History of Present Illness:
GIB, continues to have melena. planned to have EGD tomorrow
HD tomorrow
Review of Systems:
feeling okay this AM
Labs
-
Labs:
WBC 8.6 10^3/uL (4.8-10.8) 08/18/23 07:54
RBC 2.47 10^6/uL (4.70-6.10) L 08/18/23 07:54
Hgb 8.2 g/dL (13.0-18.0) L 08/18/23 07:54
Hct 24.1 % (39.0-52.0) L 08/18/23 07:54
Plt Count 152 10^3/uL (130-400) 08/18/23 07:54
Sodium 136 mmol/L (135-145) 08/17/23 04:03
Potassium 4.9 mmol/L (3.5-5.1) 08/17/23 04:03
Chloride 101 mmol/L (98-107) 08/17/23 04:03
Carbon Dioxide 28 mmol/L (22-30) 08/17/23 04:03
BUN 66 mg/dl (9-20) H 08/17/23 04:03
Creatinine 4.4 mg/dL (0.7-1.3) H* 08/17/23 04:03
eGFR 13.26 08/17/23 04:03
Glucose 96 mg/dl (70-99) 08/17/23 04:03
Calcium 8.2 mg/dl (8.4-10.2) L 08/17/23 04:03
Albumin 3.5 g/dl (3.5-5.0) 08/16/23 13:48
Physical Exam
-
Vital Signs:
Vital Signs
Temp Pulse Resp BP Pulse Ox
97.9 F 79 18 108/70 98
08/18/23 11:15 08/18/23 11:15 08/18/23 11:15 08/18/23 11:15 08/18/23 11:15
Cardiovascular:: Regular rate and rhythm
Respiratory:: Bilateral: CTA
Lung Excursion:: Normal
Abdomen:: Nontender and Soft
Bowel Sounds:: Normal
Extremity Edema:: None: Bilateral:
Cole Catheter: No
[2023-08-18] MEDS: COREG 6.25 MG PO (21:22)
[2023-08-18] MEDS: LIDOCAINE 4% PATCH TOPICAL (21:39)
[2023-08-18] MEDS: MYLICON 80 MG PO (22:01)
[2023-08-19] VITALS (9 sets, daily range): BP systolic 105–145; BP diastolic 39–60
[2023-08-19] MEDS: PROTONIX 100 IV ×2 (06:16→16:52)
--- NOTE | 2023-08-19 08:48 | W.PN.CD ---
Today's Communication / Plan
-
EGD today
echo in am
will not plan on resuming ticagrelor
Impression / Plan
-
Primary Cardiology: Urlich
Impression: 73M with GIB while on DAPT.
PMH notable for severe PAD, severe CAD, and ICM EF 30%. DAPT started after 2019 and, I think, continued because he has severe CAD/PAD
Plan
Acute anemia with GIB: severe
- There is no cardiac contraindication to EGD/colonoscopy
-plan is for today after HD
- PRBC, etc. as per primary team
Abnormal troponin:
- peak is worsened by ESRD and marked anemia but 9.47 a bit noticeable
-no chest pain
- Echo before discharge
CAD with history of CABG and multiple stents (last coronary intervention 09/07/2021 here per patient):
- med rx with ASA/BB/statin
-will not resume ticagrelor
- Echo as above
ICM:
-EF 30-35% most recently per OV noted
-ICD in place
-meds limited by BP/renal disease per OP chart
-appears euvolemic
Complex PAD:
-hx carotid artery disease, AAA with intervention, denies any recent stenting
-follows with Dr. Cole
Subjective: No CP, palps, or dyspnea
Cath 09/07/2021: Right dominant circulation with 90% in-stent restenosis of proximal RCA stent, patent vein graft segment between the RPDA and OM 3 with tandem, 90% lesions, a 90% vein graft/OM 3 anastomotic lesion, patent stent in the left main
coronary artery into the LAD with patent stents in the proximal, mid and distal LAD and a diffusely diseased circumflex system. Status post complex intervention to the 90% SVG/OM 3 anastomosis lesion (Xience Skypoint 2.75 x 15 DEBBIE, proximally
postdilated with a 3.0 NC balloon). Status post PCI to the tandem 90% SVG segment lesions (Xience Skypoint 2.75 x 28 DEBBIE, 3.0 x 12 DEBBIE, postdilated with a 3.0 NC balloon). Status post PCI to the 90% in-stent restenosis proximal RCA lesion (Xience
Skypoint 3.5 x 33 DEBBIE, postdilated with a 3.5 NC balloon). Moderately elevated filling pressures.
Physical Exam
Vital Signs/Labs
Vital Signs
Temp Pulse Resp BP Pulse Ox
98.0 F 92 18 123/58 98
08/19/23 07:30 08/19/23 07:30 08/19/23 07:30 08/19/23 07:30 08/19/23 07:30
PT 14.2 Sec (11.4-14.6) 08/18/23 07:54
INR 1.12 08/18/23 07:54
LAB Results
08/16/23 08/16/23 08/17/23
13:48 19:40 04:03
Troponin I 0.086 H* 0.143 H* D 1.520 H*
08/17/23 08/17/23 08/18/23
10:35 17:31 01:19
Troponin I 6.110 H* D 9.470 H* D 7.530 H*
Physical Exam
Constitutional: No acute distress
Cardiovascular: Rhythm & rate is regular, Pedal edema is absent, JVD pressure is normal, Systolic murmur absent and Diastolic murmur absent
Respiratory: Respiratory effort normal, Lungs clear to auscul., Wheeze Absent, Crackles Absent and Rhonchi Absent
Neuro/Psych: AO x 3
Data Reviewed
-
Date of Service: August 19, 2023
EKG: Other (tele: nsr with few pvcs)
Medical Tests (PFT, Pathology etc): Discussed with Physician (Dr Herrera, won't plan on resuming ticagrelor)
[2023-08-19 09:01] LABS: Hemoglobin 6.3 g/dL (13.0-18.0)
--- NOTE | 2023-08-19 09:20 | W.PN.NEPH.HD ---
Assessment
-
Patient seen on dialysis
Systolic blood pressure at 136 with current ultrafiltration
Hemoglobin continues to drop to 6.3, will likely require further blood transfusions today following EGD procedure
Progress Note - Hemodialysis
-
Date of Service: August 19, 2023
Duration: 30 minutes and 3 hours
Potassium Bath: 2
Calcium Bath: 2.5
Opti-Dialyzer: 160
Ultrafiltration: Other (2kg)
Blood Flow: 400
Dialysate Flow: 600
Heparin: none (GI bleed)
EPO: [id number]
[2023-08-19 10:00] LABS: Carbon Dioxide 18 mmol/L (22-30); Chloride 96 mmol/L (98-107); Potassium 5.3 mmol/L (3.5-5.1); Sodium 130 mmol/L (135-145)
[2023-08-19] MEDS: LOW STRENGTH ASPIRIN PO (10:48)
[2023-08-19] MEDS: RETACRIT 10000 UNITS IV (11:10)
[2023-08-19] MEDS: LIPITOR PO (11:46)
--- NOTE | 2023-08-19 13:22 | W.PN.GI.CBS2 ---
Today's Communication / Plan
-
Unable to do EGD today due to complaints of CP and L shoulder pain with some hypotension post dialysis
Above d/w cardiology--consider doing echo sooner
Serial H/H consider another unit of PRBCs
C/w protonix gtt renewed
Over 50mins of time spent with pt, counseling, coordinating care with cardiology, hospitalist and RN
Assessment / Plan
-
Pt is a 73yo with hx CAD, prior CABG/stents, AAA with prior endovascular repair on longstanding ASA and Brilinta, COPD/emphysema, prior LA, post-op TIA, diverticulosis, HTN, PAD. ESRD on HD with onset of weakness, and fatigue with shorteness of
breath. On admission noted with drop in hbg to 6.5( baseline 9-11) and BUN 66 higher than baseline. Pt also increased troponin to 1.520. Pt states symptoms began on Saturday with noted very black stools that become loose with belching and chest
discomfort. He also felt weak with dizziness prior to admission. Pt otherwise denies hx GI bleeding, no dysphagia, nausea, vomiting, abdominal pain, constipation, or red stools. No hx EGD in past. colonoscopy last 10 years ago recalls as
normal. Denies NSAID use other than daily 81mg ASA.
Impression
-melena
ddx includes AVMs (kam given on dialysis), PUD or ectasias
-symptomatic anemia with acute blood loss with hx chronic anemia with renal disease
-increased troponin
-CAD/CABG/stent on chronic Brilinta (last dose 4/12 AM)
-AAA with endovascular repair
-PAD
-CEA with carotid disease on CT neck 06/2023
-COPD
-prior LA
-post-op TIA
-diverticulosis
-HTN
-ESRD on HD
Plan:
- C/w protonix gtt, renewed
- Unable to do EGD today given active chest discomfort and L shoulder pain post hemodialysis. Above d/w primary team and cardiology
- Consider ECHO today
- Repeat H/H now after 1unit PRBC transfusion this AM. Consider additional unit of blood today
- Agree with stopping Brilinta longterm
- C/w ASA 81mg daily
- We will reassess timing of EGD tomorrow vs Wed after full Brilinta washout
- Resume CLD now and NPO at [facility] in case
We will follow with you.
Subjective
Subjective
Date of Service: August 19, 2023
Brought down to GI lab today. However EGD was not done as pt c/o new L shoulder pain and some chest tightness. This was after dialysis this AM and one unit PRBC transfusion. Reported one dark BM this AM.
Objective
Data Reviewed
Laboratory Data:
Laboratory Results
08/19/23 08:42
08/19/23 08:42
Laboratory Results
PT 14.2 Sec (11.4-14.6) 08/18/23 07:54
INR 1.12 08/18/23 07:54
Total Bilirubin 0.5 mg/dl (0.2-1.3) 08/16/23 13:48
AST 26 U/L (17-59) 08/16/23 13:48
ALT 21 U/L (0-50) 08/16/23 13:48
Alkaline Phosphatase 99 U/L (38-126) 08/16/23 13:48
Vital Signs and I&O:
Vital Signs
Temp Pulse Resp BP Pulse Ox
97.9 F 72 17 110/39 100
08/19/23 11:15 08/19/23 11:15 08/19/23 11:15 08/19/23 11:15 08/19/23 11:15
I&O
08/18/23 08/19/23 08/20/23
06:59 06:59 06:59
Intake Total 1316 / 1316 190 / 1907 0 / 0
Balance 1316 / 1316 190 / 190 0 / 0
Physical Exam
Physical Exam
GEN: No acute distress, conversant, pleasant
HEENT: anicteric, extraocular movements intact, clear oropharynx without exudates
GI: soft, non-distended, not tender to palpation, normal active bowel sounds, no hepatosplenomegaly
EXT: warm, well perfused, no edema bilaterally ++diffusely ecchymotic
NEURO: AAOx3, non-focal
--- NOTE | 2023-08-19 14:05 | W.PN.UPDATE ---
Addendum entered and electronically signed by THERESA Vallejo 08/19/23 14:15:
Will check trops and EKG's as well.
Original Note:
Update Note
Progress Note Update
Our service was alerted that EGD procedure cancelled today after he reported CP and left shoulder pain, and had mildly low BP. I went to see patient back on the floor and denied any chest discomfort for me, but does report intermittent left upper
back pain that is better in certain positions- he thinks it is from being in bed for a few days. He is in no distress and BP is stable. He is s/p blood transfusion and has pending hgb. Otherwise, he had dialysis treatment today. We will obtain the
planned echo now- discussed with patient, nursing, and echo techs. He is in no distress at the time of my assessment.
--- NOTE | 2023-08-19 14:22 | W.PN.HOSP.TC ---
Today's Communication/Plan
-
Transfuse PRBC unit today
Follow HH
Holding on EGD
Rpt trops
Assessment / Plan
Assessment / Plan
Acute GI bleed with acute blood loss anemia.
Patient using aspirin and Brilinta. Rule out upper GI bleed.
Hemodynamically stable.
cw IV Protonix drip. Diet per GI
s/p 4 units of PRBC -follow HH.
Transfused another unit today due to drop in HH.
Await Endoscopic eval once stable
Elevated troponins -asymptomatic without chest pain or shortness of breath. Patient has nonspecific left-sided chest pain at home but currently none. Suspect type II demand ischemia from severe anemia and GI bleed. Appreciate cardiology input.
Continue with aspirin. Holding Brilinta.
Suspect the left mid scapular pain he had today may be muscular . Rpt Troponin today
CAD with prior CABG and coronary stents
PAD with prior aortic stent
End-stage renal disease on hemodialysis-he is on hemodialysis Saturday and he finished his full hemodialysis today. No evidence of fluid overload.Pt had 3 units of PRBC . Renal following -HD in am.
Hypertension-hold antihypertensive with GI bleed and follow blood pressure readings closely.
DW GI today - holding on EGD today till stable
Total time spent on today's encounter was 52 minutes which included time spent in counseling the patient regarding diagnosis and treatment plan as listed above, goals of care, and symptom management. Case was discussed with nursing staff,
specialists, . All labs and imaging personally reviewed by me. Remainder the time spent in detailed review of previous records, lab data, imaging, and other medical provider documentation.
Full code
Anticipated Discharge: > 48 hours
Subjective/Interval History
-
Date of Service: August 19, 2023
1 blood-tinged had bowel movement�early as of this morning. None since.
Denies any abdominal pain. No nausea vomiting.
Denies any chest pain. Denies any shoulder pain.
He states he noticed left mid scapular pain when he was getting transferred onto EGD table.
Objective Data
-
Labs:
Laboratory Results
08/19/23 08/19/23 08/20/23
08:42 16:00 00:00
Hgb 6.3 L* D Pending Pending
Hct 18.0 L* Pending Pending
Sodium 130 L
Potassium 5.3 H
Chloride 96 L
Carbon Dioxide 18 L
08/20/23
08:00
Hgb Pending
Hct Pending
Sodium
Potassium
Chloride
Carbon Dioxide
Vital Signs:
Vital Signs
Temp Pulse Resp BP Pulse Ox
97.7 F 85 18 145/60 100
08/19/23 13:50 08/19/23 13:50 08/19/23 13:50 08/19/23 13:50 08/19/23 11:15
I&O
08/18/23 08/19/23 08/20/23
06:59 06:59 06:59
Intake Total 1316 / 1316 1907 / 1907 250 / 250
Balance 1316 / 1316 1907 / 1907 250 / 250
Review of Systems
-
Constitutional: Denies Fever
Respiratory: Denies Trouble Breathing
Abdomen/GI: Denies Abdominal Pain, Nausea or Vomiting
Neuro: Denies Dizzy
Physical Exam
-
General: No Apparent Distress
HEENT: Moist Mucous Membranes
Respiratory: Clear to Auscultation
Cardiac: Regular Rhythm and S1/S2
GI: Soft, Nontender, Nondistended and Normal Bowel Sounds
Musculoskeletal: Other (Reproducible tenderness in mid medial scapula )
Neuro: AO x 3
Psych: Calm
Data Reviewed
-
Labs: Labs Reviewed by me
[2023-08-19] MEDS: TYLENOL 650 MG PO (16:52)
[2023-08-19 17:30] LABS: Hematocrit 21.5 % (39.0-52.0)
[2023-08-19 17:31] LABS: Hemoglobin 7.6 g/dL (13.0-18.0)
[2023-08-19] MEDS: COREG 6.25 MG PO (22:07)
[2023-08-19] MEDS: LIDOCAINE 4% PATCH 1 PATCH TOPICAL (22:07)
[2023-08-19] MEDS: XANAX 0.5 MG PO (22:12)
[2023-08-20] VITALS (11 sets, daily range): BP systolic 107–151; BP diastolic 41–76; BMI 25.0
--- NOTE | 2023-08-20 01:20 | PTCARENOTE ---
Critical Hct was 20. MEKA Maya made aware.
--- NOTE | 2023-08-20 04:23 | W.PN.UPDATE ---
Update Note
Progress Note Update
hgb level dropped down from 7.6 to 7. Vital signs within normal limit. Last bm with blood tinged on 08/18. One unit of blood was ordered.
[2023-08-20] MEDS: PROTONIX 100 IV (04:34)
[2023-08-20 05:28] LABS: Hemoglobin 7.3 g/dL (13.0-18.0)
--- NOTE | 2023-08-20 05:38 | PTCARENOTE ---
Order placed for patient to receive 1 unit of PRBC. New type and screen order also placed. Patient has right AC iv infusing protonix drip. IV nurse called to insert a second IV line and draw new type and screen. IV nurse unable to obtain second IV
access and labs. Night owl nurse attempted to place IV as well, but was also unsuccessful in placement. Phlebotomy robert type and screen labs. Per CATERING COORDINATOR, dayshift CATERING COORDINATOR will attempt to place second IV. Nurse practitioner Zulma Hastings made aware
of situation.
--- NOTE | 2023-08-20 08:21 | PN.CDI ---
CDI
- -
CDI:
Physician Documentation Request
Admit Date: 08/16/23 17:39
Dear Doctor Javier,
Patient admitted with acute GI bleed.
08/18 PN,'....acute blood loss anemia...Patient using aspirin and Brilinta.... Holding Brilinta.'
Please clarify the relationship between these conditions:
Yes, acute blood loss anemia is associated with/ enhanced by Brilinta.
No, acute blood loss anemia is not associated with/ enhanced by Brilinta but it is due to ___. (Please specify)
Other
Use of terms such as suspected, likely, concern for, or probable (associated with a specific diagnosis that is being evaluated, monitored, or treated as if it exists) are acceptable and can be coded in the inpatient setting, when documented at the
time of discharge.
Thank you,
Marleny WILHELM,RN,CCDS
CDI Specialist
Available via tiger text
Please use your independent medical judgment in providing your response.
--- NOTE | 2023-08-20 08:33 | W.PN.CD ---
Today's Communication / Plan
-
cotninue current care plan
ok for GI procedures today
Impression / Plan
-
Primary Cardiology: Antionette
Impression: 73M with GIB while on DAPT.
PMH notable for severe PAD, severe CAD, and ICM EF 30%. DAPT started after 2019 and, I think, continued because he has severe CAD/PAD
Plan
Acute anemia with GIB: severe
- There is no cardiac contraindication to EGD/colonoscopy
-plan is for today
- PRBC, etc. as per primary team
Abnormal troponin:
- peak is worsened by ESRD and marked anemia but 9.47 a bit noticeable
-no chest pain, denied CP to our service yesterday even so, ecg stable trops down and ef better than prior
-due to nonischemic myocardial injury in the setting of acute anemia and CKD.
CAD with history of CABG and multiple stents (last coronary intervention 09/07/2021 here per patient):
- med rx with ASA/BB/statin
-will not resume ticagrelor
ICM:
-EF 30-35%
-ICD in place
-meds limited by BP/renal disease per OP chart
-appears euvolemic
Complex PAD:
-hx carotid artery disease, AAA with intervention, denies any recent stenting
-follows with Dr. Cole
Subjective: No CP, palps, or dyspnea,lying flat in our visit
TTE: 08/19/23 Moderately reduced left ventricular systolic function. LV ejection fraction is
30-35%.
Global hypokinesis with more severe hypokinesis of inferior/inferolateral
segments.
Stage II diastolic dysfunction suggestive of abnormal relaxation and increased
filling pressures.
Moderate/severe mitral regurgitation.
Enlarged right ventricular size. Normal right ventricular systolic function.
Moderate tricuspid regurgitation. Moderately elevated PASP. Estimated pulmonary
artery pressure of 51 mmHg. Assuming a right atrial pressure of 3 mmHg.
Compared to 09/07/21: LVEF has improved from 20-25% to 30-35%. MR has progressed
from moderate to moderate/severe. TR has progressed from mild to moderate. PASP
has increased from 40 mmHg to 51 mmHg.
Cath 09/07/2021: Right dominant circulation with 90% in-stent restenosis of proximal RCA stent, patent vein graft segment between the RPDA and OM 3 with tandem, 90% lesions, a 90% vein graft/OM 3 anastomotic lesion, patent stent in the left main
coronary artery into the LAD with patent stents in the proximal, mid and distal LAD and a diffusely diseased circumflex system. Status post complex intervention to the 90% SVG/OM 3 anastomosis lesion (Xience Skypoint 2.75 x 15 DEBBIE, proximally
postdilated with a 3.0 NC balloon). Status post PCI to the tandem 90% SVG segment lesions (Xience Skypoint 2.75 x 28 DEBBIE, 3.0 x 12 DEBBIE, postdilated with a 3.0 NC balloon). Status post PCI to the 90% in-stent restenosis proximal RCA lesion (Xience
Skypoint 3.5 x 33 DEBBIE, postdilated with a 3.5 NC balloon). Moderately elevated filling pressures.
Physical Exam
Vital Signs/Labs
Vital Signs
Temp Pulse Resp BP Pulse Ox
97.3 F 82 12 120/60 99
08/20/23 03:00 08/20/23 03:00 08/20/23 03:00 08/20/23 03:00 08/20/23 03:00
08/19/23 08/20/23 08/21/23
06:59 06:59 06:59
Actual Weight 72.235 kg
08/19/23 08:42
PT 14.2 Sec (11.4-14.6) 08/18/23 07:54
INR 1.12 08/18/23 07:54
LAB Results
08/17/23 08/17/23 08/18/23
10:35 17:31 01:19
Troponin I 6.110 H* D 9.470 H* D 7.530 H*
08/19/23 08/19/23 08/20/23
17:22 23:49 05:21
Troponin I 4.730 H* 4.460 H* 4.490 H*
Physical Exam
Constitutional: No acute distress
Cardiovascular: Rhythm & rate is regular, Pedal edema is absent and JVD pressure is normal
Respiratory: Respiratory effort normal, Lungs clear to auscul., Wheeze Absent and Crackles Absent
Neuro/Psych: AO x 3
Data Reviewed
-
Date of Service: August 20, 2023
EKG: Tracing Personally Visualized and interpreted (sinus rhythm pac septal infarct)
Medical Tests (PFT, Pathology etc): Discussed with Physician (Dr Javier bejarano for gi procedure)
[2023-08-20] MEDS: LOW STRENGTH ASPIRIN 81 MG PO (09:46)
[2023-08-20] MEDS: LIPITOR 80 MG PO (09:46)
--- NOTE | 2023-08-20 11:06 | W.PN.UPDATE ---
Update Note
Progress Note Update
EGD done.
Antral erythema- bx'd
Otherwise negative
REC:
Colonoscopy tomorrow
[2023-08-20 12:47] LABS: Hemoglobin 7.3 g/dL (13.0-18.0)
[2023-08-20 12:51] LABS: Hematocrit 20.8 % (39.0-52.0)
--- NOTE | 2023-08-20 13:30 | W.PN.HOSP.TC ---
Today's Communication/Plan
-
[place] in am
Assessment / Plan
Assessment / Plan
Acute GI bleed with acute blood loss anemia.
Patient using aspirin and Brilinta.
Hemodynamically stable.
s/p 4 units of PRBC -follow HH.
EGD without obvious bleeding source. For colo in am.
DC protonix drip.
Elevated troponins -asymptomatic without chest pain or shortness of breath. Patient has nonspecific left-sided chest pain at home but currently none. Suspect type II demand ischemia from severe anemia and GI bleed. Appreciate cardiology input.
Continue with aspirin. Holding Brilinta.
Suspect the left mid scapular pain he had 08/18 may be muscular . Rpt Troponin lower.
CAD with prior CABG and coronary stents
PAD with prior aortic stent
End-stage renal disease on hemodialysis-he is on hemodialysis Saturday . Renal following
Hypertension-hold antihypertensive with GI bleed and follow blood pressure readings closely.
Full code
Anticipated Discharge: 24 - 48 hours
Subjective/Interval History
-
Date of Service: August 20, 2023
Back from EGD
Objective Data
-
Labs:
Laboratory Results
08/20/23 08/20/23 08/20/23
05:21 06:00 06:00
Hgb 7.3 L Cancelled Cancelled
Hct 21.0 L Cancelled
08/20/23 08/20/23 08/20/23
06:00 08:00 12:21
Hgb Cancelled 7.3 L
Hct Cancelled Cancelled 20.8 L*
08/20/23
17:00
Hgb Pending
Hct Pending
Vital Signs:
Vital Signs
Temp Pulse Resp BP Pulse Ox
97.6 F 74 16 123/53 99
08/20/23 12:58 04/16/24 12:58 08/20/23 12:58 08/20/23 12:58 08/20/23 11:45
I&O
08/19/23 08/20/23 08/21/23
06:59 06:59 06:59
Intake Total 1907 250 / 250 0 / 0
Balance 1907 250 / 250 0 / 0
Review of Systems
-
Respiratory: Denies Cough or Trouble Breathing
Cardiac: Denies Chest Pain
Abdomen/GI: Denies Abdominal Pain, Nausea or Vomiting
Neuro: Denies Dizzy
Physical Exam
-
General: No Apparent Distress
HEENT: Moist Mucous Membranes
Respiratory: Clear to Auscultation
Cardiac: Regular Rhythm and S1/S2
GI: Soft and Nontender
Neuro: AO x 3
Psych: Calm
Data Reviewed
-
Labs: Labs Reviewed by me
[2023-08-20] MEDS: PROTONIX IV (13:54)
--- NOTE | 2023-08-20 15:15 | W.PN.NEPH.PH ---
Today's Communication / Plan
-
Dialysis tomorrow
Assessment/Plan
-
Assessment:
GIB with new anemia
CAD wityh prior stents
ESRD on HD MWF at [facility]
HTN
Positive troponin
Plan:
- plan for HD tomorrow,orders provided
-Status post blood products
- EGD on Saturday without acute findings, for colonoscopy tomorrow
-Anemia persists, escalate ROXANA on HD, hemodynamically stable
-
-
Date of Service: August 20, 2023
CC / HPI / ROS
-
Chief Complaint:
ESRD
History of Present Illness:
GIB, for colonoscopy tomorrow
HD tomorrow
Hemodynamically stable
Review of Systems:
feeling okay this AM
No fevers
Labs
-
Labs:
WBC 8.6 10^3/uL (4.8-10.8) 08/18/23 07:54
RBC 2.47 10^6/uL (4.70-6.10) L 08/18/23 07:54
Plt Count 152 10^3/uL (130-400) 08/18/23 07:54
Sodium 130 mmol/L (135-145) L 08/19/23 08:42
Potassium 5.3 mmol/L (3.5-5.1) H 08/19/23 08:42
Chloride 96 mmol/L (98-107) L 08/19/23 08:42
Carbon Dioxide 18 mmol/L (22-30) L 08/19/23 08:42
BUN 66 mg/dl (9-20) H 08/17/23 04:03
Creatinine 4.4 mg/dL (0.7-1.3) H* 08/17/23 04:03
eGFR 13.26 08/17/23 04:03
Glucose 96 mg/dl (70-99) 08/17/23 04:03
Calcium 8.2 mg/dl (8.4-10.2) L 08/17/23 04:03
Albumin 3.5 g/dl (3.5-5.0) 08/16/23 13:48
Physical Exam
-
Vital Signs:
Vital Signs
Temp Pulse Resp BP Pulse Ox
97.8 F 69 16 128/46 99
08/20/23 13:25 08/20/23 13:25 08/20/23 13:25 08/20/23 13:25 08/20/23 11:45
Cardiovascular:: Regular rate and rhythm
Respiratory:: Bilateral: Coarse
Lung Excursion:: Normal
Abdomen:: Nontender and Soft
Bowel Sounds:: Normal
Extremity Edema:: None: Bilateral:
Ocle Catheter: No
Other Findings::
LUE AVF
--- NOTE | 2023-08-20 15:58 | CM ---
Patient for Colonoscopy in am.
Plan: home with resumption of HD at [facility].
[2023-08-20] MEDS: NULYTELY SOLUTION 4 LITERS PO (16:55)
[2023-08-20 17:04] LABS: Hematocrit 25.6 % (39.0-52.0); Hemoglobin 8.9 g/dL (13.0-18.0)
[2023-08-20] MEDS: COREG 6.25 MG PO (20:23)
[2023-08-20] MEDS: LIDOCAINE 4% PATCH 1 PATCH TOPICAL (20:23)
[2023-08-20] MEDS: XANAX 0.5 MG PO (22:04)
[2023-08-21] VITALS (7 sets, daily range): BP systolic 102–151; BP diastolic 47–65; BMI 25.8
--- NOTE | 2023-08-21 05:23 | DOWNTIME ---
There was a [employer] Client Typo Machine Operator Downtime on 08/21/2023 from 0100 to 08/21/2023 at 0439. Downtime documentation of patient's care, including medication administrations, has been reconciled in the electronic record per guidelines. Refer to the
patient's paper chart under the miscellaneous tab to see printed paper medication records and downtime forms.
[2023-08-21] MEDS: PROTONIX 40 MG PO (08:13)
[2023-08-21] MEDS: LOW STRENGTH ASPIRIN 81 MG PO (08:13)
[2023-08-21] MEDS: LIPITOR 80 MG PO (08:13)
[2023-08-21 08:40] LABS: Hematocrit 22.8 % (39.0-52.0); Hemoglobin 7.8 g/dL (13.0-18.0); Mean Corp Hgb Conc. 34.2 g/dL (33.0-37.0); Mean Corpuscular Hgb 32.9 pg (27.0-31.0); Mean Corpuscular Volume 96.2 fL (80.0-94.0); Mean Platelet Volume 10.9 fL (7.4-10.4); Platelet Count 137 10^3/uL (130-400); Red Blood Cell Count 2.37 10^6/uL (4.70-6.10); Red Cell Dist. Width 17.7 % (11.5-14.5); White Blood Cell Count 9.4 10^3/uL (4.8-10.8)
--- NOTE | 2023-08-21 09:49 | W.PN.CD ---
Today's Communication / Plan
-
ongoing anemia evaluation
would not resume ticreglor on discharge
continue remain cardiac medications
no new recommendations
I will return to the case at your request
Impression / Plan
-
Primary Cardiology: Antionette
Impression: 73M with GIB while on DAPT.
PMH notable for severe PAD, severe CAD, and ICM EF 30%. DAPT started after 2019 and, I think, continued because he has severe CAD/PAD
Plan
Acute anemia with GIB: severe
- There is no cardiac contraindication to colonoscopy
-EGD unrevealing
-plan is for cscope todaytoday
- PRBC, etc. as per primary team
Abnormal troponin:
- peak is worsened by ESRD and marked anemia but 9.47 a bit noticeable
-no chest pain, denied CP to our service yesterday even so, ecg stable trops down and ef better than prior
-due to nonischemic myocardial injury in the setting of acute anemia and CKD.
CAD with history of CABG and multiple stents (last coronary intervention 09/07/2021 here per patient):
- med rx with ASA/BB/statin
-will not resume ticagrelor
ICM:
-EF 30-35%
-ICD in place
-meds limited by BP/renal disease per OP chart
-appears euvolemic
Complex PAD:
-hx carotid artery disease, AAA with intervention, denies any recent stenting
-follows with Dr. Cole
Subjective: No CP, palps, or dyspnea,lying flat in our visit. Ongoing anemia evaluation
TTE: 08/19/23 Moderately reduced left ventricular systolic function. LV ejection fraction is
30-35%.
Global hypokinesis with more severe hypokinesis of inferior/inferolateral
segments.
Stage II diastolic dysfunction suggestive of abnormal relaxation and increased
filling pressures.
Moderate/severe mitral regurgitation.
Enlarged right ventricular size. Normal right ventricular systolic function.
Moderate tricuspid regurgitation. Moderately elevated PASP. Estimated pulmonary
artery pressure of 51 mmHg. Assuming a right atrial pressure of 3 mmHg.
Compared to 09/07/21: LVEF has improved from 20-25% to 30-35%. MR has progressed
from moderate to moderate/severe. TR has progressed from mild to moderate. PASP
has increased from 40 mmHg to 51 mmHg.
Cath 09/07/2021: Right dominant circulation with 90% in-stent restenosis of proximal RCA stent, patent vein graft segment between the RPDA and OM 3 with tandem, 90% lesions, a 90% vein graft/OM 3 anastomotic lesion, patent stent in the left main
coronary artery into the LAD with patent stents in the proximal, mid and distal LAD and a diffusely diseased circumflex system. Status post complex intervention to the 90% SVG/OM 3 anastomosis lesion (Xience Skypoint 2.75 x 15 DEBBIE, proximally
postdilated with a 3.0 NC balloon). Status post PCI to the tandem 90% SVG segment lesions (Xience Skypoint 2.75 x 28 DEBBIE, 3.0 x 12 DEBBIE, postdilated with a 3.0 NC balloon). Status post PCI to the 90% in-stent restenosis proximal RCA lesion (Xience
Skypoint 3.5 x 33 DEBBIE, postdilated with a 3.5 NC balloon). Moderately elevated filling pressures.
Physical Exam
Vital Signs/Labs
Vital Signs
Temp Pulse Resp BP Pulse Ox
97.5 F 67 17 122/48 100
08/21/23 07:30 08/21/23 07:30 08/21/23 07:30 08/21/23 07:30 08/21/23 07:30
08/20/23 08/21/23 08/22/23
06:59 06:59 06:59
Actual Weight 72.235 kg 74.616 kg
08/21/23 08:11
08/19/23 08:42
PT 14.2 Sec (11.4-14.6) 08/18/23 07:54
INR 1.12 08/18/23 07:54
LAB Results
08/19/23 08/19/23 08/20/23
17:22 23:49 05:21
Troponin I 4.730 H* 4.460 H* 4.490 H*
Physical Exam
Constitutional: No acute distress
Cardiovascular: Rhythm & rate is regular, Pedal edema is absent, JVD pressure is normal, Systolic murmur absent, Diastolic murmur absent and S1S2 is normal
Respiratory: Respiratory effort normal, Lungs clear to auscul., Wheeze Absent, Crackles Absent and Rhonchi Absent
Neuro/Psych: AO x 3
Data Reviewed
-
Date of Service: August 21, 2023
EKG: Other
--- NOTE | 2023-08-21 10:56 | W.PN.UPDATE ---
Update Note
Progress Note Update
Colonoscopy done
Sigmoid diverticulosis
Internal hemorrhoids
Otherwise normal
REC:
Resume diet
OP capsule endoscopy to evaluate for source of bleeding
OK to resume ASA and Brilinta
--- NOTE | 2023-08-21 13:37 | W.PN.HOSP.TC ---
Today's Communication/Plan
-
DC planning
Assessment / Plan
Assessment / Plan
Acute GI bleed with acute blood loss anemia.
Patient using aspirin and Brilinta.
Hemodynamically stable.
s/p 5 units of PRBC -follow HH.
EGD without obvious bleeding source.
DCed protonix drip.
[place] without bleeding source ;GI recommmends OP capsule study.
Elevated troponins -asymptomatic without chest pain or shortness of breath. Patient has nonspecific left-sided chest pain at home but currently none. Suspect type II demand ischemia from severe anemia and GI bleed. Appreciate cardiology input.
Continue with aspirin. Holding Brilinta.
CAD with prior CABG and coronary stents
PAD with prior aortic stent
End-stage renal disease on hemodialysis-he is on hemodialysis Saturday . Renal following
Hypertension-hold antihypertensive with GI bleed and follow blood pressure readings closely.
Full code
Start back on diet
Follow HH and if stable dc in am
Anticipated Discharge: Within 24 hours
Subjective/Interval History
-
Date of Service: August 21, 2023
Back from colonoscopy.
Denies any abdominal pain. No nausea vomiting.
Denies any shortness of breath or chest pain.
Objective Data
-
Labs:
Laboratory Results
08/21/23
08:11
WBC 9.4
Hgb 7.8 L
Hct 22.8 L
Plt Count 137
Vital Signs:
Vital Signs
Temp Pulse Resp BP Pulse Ox
97.0 F 61 14 123/47 100
08/21/23 11:20 08/21/23 11:15 08/21/23 11:15 08/21/23 11:15 08/21/23 11:20
I&O
08/20/23 08/21/23 08/22/23
06:59 06:59 06:59
Intake Total 250 / 250 645 / 645
Balance 250 / 250 645 / 645
Review of Systems
-
Constitutional: Denies Fever
Respiratory: Denies Cough
Neuro: Denies Dizzy or Headache
Physical Exam
-
General: No Apparent Distress
HEENT: Moist Mucous Membranes
Respiratory: Clear to Auscultation
Cardiac: Regular Rhythm and S1/S2
GI: Soft and Nontender
Neuro: AO x 3
Psych: Calm
Data Reviewed
-
Labs: Labs Reviewed by me
[2023-08-21] MEDS: RETACRIT 10000 UNITS IV (15:28)
--- NOTE | 2023-08-21 16:09 | W.PN.NEPH.HD ---
Assessment
-
- resting comfortably on HD
Progress Note - Hemodialysis
-
Date of Service: August 21, 2023
Duration: 30 minutes and 3 hours
Potassium Bath: 3
Calcium Bath: 2.5
Opti-Dialyzer: 160
Ultrafiltration: Other
Blood Flow: 400
Dialysate Flow: 600
--- NOTE | 2023-08-21 16:31 | CM ---
Patient seen bedside on HD.
Patient denies home care needs.
Patient will transport himself to and from HD.
Plan: home no needs.
[2023-08-21] MEDS: COREG 6.25 MG PO (21:58)
[2023-08-21] MEDS: LIDOCAINE 4% PATCH 1 PATCH TOPICAL (21:58)
[2023-08-21] MEDS: XANAX 0.5 MG PO (22:08)
[2023-08-22 05:47] VITALS: BMI 24.9
[2023-08-22 07:00] VITALS: BP 132/42
--- NOTE | 2023-08-22 07:50 | PN.CDI ---
CDI
- -
CDI:
Physician Documentation Request
Admit Date: 08/16/23 17:39
Dear Doctor Javier,
Patient admitted with acute GI bleed.
08/20 Cardiology note, 'Abnormal troponin....due to nonischemic myocardial injury in the setting of acute anemia and CKD.'
08/20 PN, 'Elevated troponins....type II demand ischemia from severe anemia and GI bleed. Appreciate cardiology input.
Due to conflicting documentation, please clarify in your note the diagnosis associated with the abnormal/ elevated troponin levels:
Nonischemic myocardial injury in the setting of acute anemia and CKD
Type II demand ischemia from severe anemia and GI bleed
Other
Use of terms such as suspected, likely, concern for, or probable (associated with a specific diagnosis that is being evaluated, monitored, or treated as if it exists) are acceptable and can be coded in the inpatient setting, when documented at the
time of discharge.
Thank you,
Marleny WILHELM,RN,CCDS
CDI Specialist
Available via [employer]
Please use your independent medical judgment in providing your response.
[2023-08-22 08:07] LABS: % Basophils 0.5 % (0-2); % Eosinophils 4.3 % (0-6); % Immature Granulocytes 1.7 % (0-0.5); % Lymphocytes 15.9 % (20.5-51.1); % Monocytes 9.7 % (1.7-9.3); % Neutrophils 67.9 % (42.2-75.2); Absolute Eosinophils 0.4 10^3/uL (0-0.7); Absolute Immature Granulocytes 0.1 10^3/uL (0-0.05); Absolute Lymphocytes 1.3 10^3/uL (1.2-3.4); Absolute Monocytes 0.8 10^3/uL (0.1-0.6); Absolute Neutrophils 5.6 10^3/uL (1.4-6.5); Hemoglobin 8.4 g/dL (13.0-18.0); Mean Corp Hgb Conc. 33.6 g/dL (33.0-37.0); Mean Corpuscular Hgb 32.6 pg (27.0-31.0); Mean Corpuscular Volume 96.9 fL (80.0-94.0); Nucleated Red Blood Cells % 1.8 % (-); Platelet Count 170 10^3/uL (130-400); Red Blood Cell Count 2.58 10^6/uL (4.70-6.10); Red Cell Dist. Width 17.5 % (11.5-14.5); White Blood Cell Count 8.2 10^3/uL (4.8-10.8)
--- NOTE | 2023-08-22 10:00 | W.PN.HOSP.TC ---
Addendum entered and electronically signed by Robert Herrera MD 08/26/23 16:18:
Acute blood loss anemia is associated with Brilinta.
Addendum entered and electronically signed by Robert Herrera MD 08/26/23 16:11:
Troponin elevation suspected secondary to nonischemic myocardial injury by cardiology which I agree.
Original Note:
Today's Communication/Plan
-
dc
Assessment / Plan
Assessment / Plan
Acute GI bleed with acute blood loss anemia.
Patient using aspirin and Brilinta.
Hemodynamically stable.
s/p 5 units of PRBC -follow HH.
EGD without obvious bleeding source.
DCed protonix drip.
[place] without bleeding source ;GI recommmends OP capsule study.
HH today stable.
Elevated troponins -asymptomatic without chest pain or shortness of breath. Patient has nonspecific left-sided chest pain at home but currently none. Suspect type II demand ischemia from severe anemia and GI bleed. Appreciate cardiology input.
Continue with aspirin. No plans for Brilinta on dc per cards.
CAD with prior CABG and coronary stents
PAD with prior aortic stent
End-stage renal disease on hemodialysis-he is on hemodialysis Saturday . Renal following
Hypertension-hold antihypertensive with GI bleed and follow blood pressure readings closely.
Full code
PT eval today
DC if ok on his feet
Pt told to stay of Brilinta
Follow HH in a week
More than 30 minutes spent in discharge including
Final examination of the patient
Summarizing hospital stay
Instructions for continuing care to all relevant caregivers
Preparation of discharge records, prescriptions, and referral forms
Total time spent (in minutes): 35
Anticipated Discharge: Today
Subjective/Interval History
-
Date of Service: August 22, 2023
Feeling the best since admission. Tolerated diet.
No rectal bleeding.
Denies shortness of breath or chest pain.
No nausea vomiting.
Objective Data
-
Labs:
Laboratory Results
08/22/23
07:29
WBC 8.2
Hgb 8.4 L
Hct 25.0 L
Plt Count 170 D
Vital Signs:
Vital Signs
Temp Pulse Resp BP Pulse Ox
97.8 F 65 16 132/42 99
08/22/23 07:00 08/22/23 07:00 08/22/23 07:00 08/22/23 07:00 08/22/23 07:00
I&O
08/21/23 08/22/23 08/23/23
06:59 06:59 06:59
Intake Total 645 / 645 480 / 480
Balance 645 / 645 480 / 480
Review of Systems
-
Constitutional: Denies Fever
EENT: Denies Sore Throat
Respiratory: Denies Cough
Neuro: Denies Dizzy
Physical Exam
-
General: No Apparent Distress
HEENT: Moist Mucous Membranes
Respiratory: Clear to Auscultation
Cardiac: Regular Rhythm and S1/S2
GI: Soft and Nontender
Neuro: AO x 3
Psych: Calm
Data Reviewed
-
Labs: Labs Reviewed by me
[2023-08-22] MEDS: LOW STRENGTH ASPIRIN 81 MG PO (10:06)
[2023-08-22] MEDS: PROTONIX 40 MG PO (10:06)
[2023-08-22] MEDS: LIPITOR 80 MG PO (10:06)
--- NOTE | 2023-08-22 10:08 | W.DS.TRANS ---
DC Summary - [employer]
-
Discharge Instructions:
Sleep Apnea Risk Low
Discharge Diagnosis/Procedures GI bleed anemia requiring transfusion. EGD and
colonoscopy and also bleeding. Outpatient plan
for capsule endoscopy. End-stage renal disease
on Saturday hemodialysis. CAD
and PAD.
Diet Low Cholesterol
Activity As tolerated
Driving Restrictions As prior to admission
Blood Work CBC in one wee- arrange through your PCP
Instructions:
Stand-Alone Forms:
Changes to Home Medications: Yes
Discharge Medications:
DC Medications w/original date entered in [facility]
atorvastatin 80 mg tablet 80 mg PO DAILY High cholesterol 02/05/20
cholecalciferol (vitamin D3) 25 mcg (1,000 unit) capsule (Vitamin D3) 1,000 unit PO DAILY Supplement 02/05/20
tamsulosin 0.4 mg capsule (Flomax) 0.4 mg PO HS Urinary issue 02/05/20
cetirizine 10 mg tablet 10 mg PO DAILYPRN PRN allergies 07/29/20
ezetimibe 10 mg tablet 10 mg PO DAILY High cholesterol 07/29/20
aspirin 81 mg chewable tablet 81 mg PO DAILY Blood clot prevention/tx #0 tabs 08/02/20
cyanocobalamin (vitamin B-12) 1,000 mcg tablet 1,000 mcg PO DAILY Supplement #30 tabs 08/02/20
febuxostat 40 mg tablet 40 mg PO DAILY Gout 08/29/21
sevelamer carbonate 800 mg tablet (Renvela) 2,400 mg PO MEALS phosphate binder 01/30/22
alprazolam 0.5 mg tablet 0.5 mg PO HSPRN PRN anxiety 05/30/23
docusate sodium 100 mg tablet 100 mg PO BID Constipation 05/30/23
ketotifen fumarate 0.025 % (0.035 %) eye drops 1 drp BOTH EYES DAILY Eye Condition 05/30/23
sacubitril 24 mg-valsartan 26 mg tablet (Entresto) 1 tab PO QPM Heart Failure 08/16/23
carvedilol 6.25 mg tablet 6.25 mg QHS Blood Pressure 08/17/23
Home Medication Changes
Discontinue medication-Brilinta
Pending Results: No
--- NOTE | 2023-08-22 11:25 | W.PN.GI.CBS2 ---
Addendum entered and electronically signed by THERESA Iyer 08/22/23 11:42:
pt also admits to hx ICD reviewed risk with capsule agreeable to proceed
Addendum entered and electronically signed by Rohan Martin MD 08/22/23 11:36:
I saw and examined the patient.
The PEDIATRIC DENTIST or PA's note was reviewed and I agree with the note.
Comment: No complaints. Getting ready for d/c
REC:
No source for GIB found on EGD or colonoscopy
OK for dc
OP small bowel capsule endoscopy
OK to resume brilinta
Original Note:
Today's Communication / Plan
-
for discharge today
s/p EGD and colon no source for melena and anemia
EGD bx pending
will arrange OP then office visit after capsule
OP 1 week cbc with PCP
family updated
all questions answered
Assessment / Plan
-
Pt is a 73yo with hx CAD, prior CABG/stents, AAA with prior endovascular repair on longstanding ASA and Brilinta, COPD/emphysema, prior [place], post-op TIA, diverticulosis, HTN, PAD. ESRD on HD with onset of weakness, and fatigue with shortness of
breath. On admission noted with drop in hbg to 6.5( baseline 9-11) and BUN 66 higher than baseline with black stools, belching, dizziness and chest pain. Pt also increased troponin.
08/19- EGD martin - Normal esophagus. - Erythematous mucosa in the antrum. Biopsied. - Normal examined duodenum. path pending
08/20 colon - martin - Diverticulosis in the sigmoid colon. Internal hemorrhoids.- No specimens collected.
Impression
-melena
ddx includes AVMs (kam given on dialysis), PUD or ectasias
-symptomatic anemia with acute blood loss with hx chronic anemia with renal disease
-increased troponin
-CAD/CABG/stent on chronic Brilinta (last dose 412 AM)
-AAA with endovascular repair
-PAD
-CEA with carotid disease on CT neck 06/2023
-COPD
-prior [place]
-post-op TIA
-diverticulosis
-HTN
-ESRD on HD
Plan:
for discharge today
s/p EGD and colon no source for melena and anemia
EGD bx pending
will arrange OP then office visit after capsule
OP 1 week cbc with PCP
family updated
all questions answered
Subjective
Subjective
Date of Service: August 22, 2023
08/20 brown stools on renal diet
Objective
Data Reviewed
Laboratory Data:
Laboratory Results
08/22/23 07:29
08/19/23 08:42
Laboratory Results
PT 14.2 Sec (11.4-14.6) 08/18/23 07:54
INR 1.12 08/18/23 07:54
Total Bilirubin 0.5 mg/dl (0.2-1.3) 08/16/23 13:48
AST 26 U/L (17-59) 08/16/23 13:48
ALT 21 U/L (0-50) 08/16/23 13:48
Alkaline Phosphatase 99 U/L (38-126) 08/16/23 13:48
Vital Signs and I&O:
Vital Signs
Temp Pulse Resp BP Pulse Ox
97.8 F 65 16 132/42 99
08/22/23 07:00 08/22/23 07:00 08/22/23 07:00 08/22/23 07:00 08/22/23 07:00
I&O
08/21/23 08/22/23 08/23/23
06:59 06:59 06:59
Intake Total 645 / 645 480 / 480
Balance 645 / 645 480 / 480
Physical Exam
Physical Exam
HEENT: Anicteric and Moist mucous membranes
Cardiology: Normal Sinus Rhythm
Pulmonary: Clear
GI: Soft, Non Distended and Non Tender
Extremities: No Edema
Neuro: Non Focal
--- NOTE | 2023-08-22 12:04 | CM ---
Patient seen bedside.
denies home care needs.
Interested in home care for his spouse, specifically [employer] benefits, resource number given to patient.
Daughter will transport home.
IMM completed.
Plan: home no needs.
== END 2023-08-22 12:03 | disposition home or self-care (01) | DRG 377 ==
LOC: 4 WEST ACU 17:39
PROVIDERS: Emergency Medicine; Nurse Practitioner; Nurse Practitioner Family; Specialist; ADMITTING PHYSICIAN Internal Medicine; CONSULT PHYSICIAN Internal Medicine Cardiovascular Disease; CONSULT PHYSICIAN Internal Medicine Gastroenterology; CONSULT PHYSICIAN Student in an Organized Health Care Education/Training Program; EMERGENCY PHYSICIAN Emergency Medicine; FAMILY PHYSICIAN Family Medicine
PROC: 30233N1 Transfusion of Nonautologous Red Blood Cells into Peripheral Vein, Percutaneous Approach (ICD-10-PCS; 2023-08-16)
PROC: 5A1D70Z Performance of Urinary Filtration, Intermittent, Less than 6 Hours Per Day (ICD-10-PCS; 2023-08-19)
PROC: 0DB68ZX Excision of Stomach, Via Natural or Artificial Opening Endoscopic, Diagnostic (ICD-10-PCS; 2023-08-20)
PROC: 0DJD8ZZ Inspection of Lower Intestinal Tract, Via Natural or Artificial Opening Endoscopic (ICD-10-PCS; 2023-08-21)
DX: K57.31 Diverticulosis of large intestine without perforation or abscess with bleeding (principal); N18.6 End stage renal disease; D62 Acute posthemorrhagic anemia; I13.2 Hypertensive heart and chronic kidney disease with heart failure and with stage 5 chronic kidney disease, or end stage renal disease; I50.22 Chronic systolic (congestive) heart failure; I5A Non-ischemic myocardial injury (non-traumatic); D68.32 Hemorrhagic disorder due to extrinsic circulating anticoagulants; I25.10 Atherosclerotic heart disease of native coronary artery without angina pectoris; K64.8 Other hemorrhoids; I25.2 Old myocardial infarction; Z95.810 Presence of automatic (implantable) cardiac defibrillator; Z79.02 Long term (current) use of antithrombotics/antiplatelets
CPT/HCPCS: 88305; 71046; 80048; 80051; 80053; 82607; 82728; 82746; 83540; 83550; 84484; 85014; 85018; 85025; 85027; 85610; 86803; 86850; 86900; 86901; 86920; 87070; 88342; 93005; 93306; 96365; 96366; 99284; G0257; P9016; Q5106

== ENCOUNTER 2024-04-07 21:14 | Inpatient (IN) | payer MEDICARE, SELFPAY ==
[2024-04-07] VITALS (9 sets, daily range): BP systolic 157–188; BP diastolic 51–77; BMI 29.2
--- NOTE | 2024-04-07 19:11 | CON.VAS ---
Consultation
Consultation Request
Date/Time Consultation Requested: 04/07/2024
Date/Time Consultation Performed: 04/07/2024
Requesting Provider: ED
Performing Provider: Kelsey
Reason for Consultation: Ruptured right iliac artery
Medical History
-
Chief Complaint: Right flank pain
History of Present Illness:
74 yo male
known to me from prior complex EVAR in 2021 for aortic aneurysm and associated calcified iliac occlusive disease
ESRD on HD M/W/F
Overall doing well and on last visit in the office his imaging showed patent aortic stent with no endoleak
Presented to [facility] with right flank pain starting Saturday
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
Patient stable
Alert/oriented
Abd soft, tender right flank and RLQ
Palp fem pulse right
OR now for attempt at endovascular intervention on right iliac artery
The technical aspects of this procedure were discussed with him in detail. The benefits and rationale for this approach were discussed with him in detail. Operative risks were discussed with him in detail including but not limited to bleeding,
open conversion, heart attack, stroke, distal embolization, limb ischemia and the need for additional procedures. He expressed a clear understanding of our conversation and agrees to proceed with surgery as detailed above.
[id number]
Vascular Surgery
Past Medical History
Past Medical History: CAD and Renal Failure
Past Surgical History: Other (EVAR)
Allergies / Home Medications
Allergy/AdvReac Type Severity Reaction Status Date / Time
clopidogrel bisulfate Allergy pt states Verified 04/07/24 18:18
[From Plavix] he get
very weak
and pale
after
taking,
nausea
Iodinated Contrast Media Allergy PANCREATITS Verified 04/07/24 18:18
POST
CARDIAC
CATH
penicillin V potassium Allergy throat Verified 04/07/24 18:18
[From Pen-Vee K] closing/
anaphylaxis
�Medication �Instructions �Recorded �Confirmed �Type
atorvastatin 80 mg tablet 80 mg PO DAILY High cholesterol 02/05/20 04/07/24 History
cholecalciferol (vitamin D3) 25 1,000 unit PO DAILY Supplement 02/05/20 04/07/24 History
mcg (1,000 unit) capsule (Vitamin
D3)
tamsulosin 0.4 mg capsule (Flomax) 0.4 mg PO HS Urinary issue 02/05/20 04/07/24 History
cetirizine 10 mg tablet 10 mg PO DAILYPRN PRN allergies 07/29/20 04/07/24 History
ezetimibe 10 mg tablet 10 mg PO DAILY High cholesterol 07/29/20 04/07/24 History
aspirin 81 mg chewable tablet 81 mg PO DAILY Blood clot 08/02/20 04/07/24 Rx
prevention/tx #0 tabs
cyanocobalamin (vitamin B-12) 1,000 mcg PO DAILY Supplement #30 08/02/20 04/07/24 Rx
1,000 mcg tablet tabs
febuxostat 40 mg tablet 40 mg PO DAILY Gout 08/29/21 04/07/24 History
sevelamer carbonate 800 mg tablet 2,400 mg PO MEALS phosphate binder 01/30/22 04/07/24 History
(Renvela)
alprazolam 0.5 mg tablet 0.5 mg PO HSPRN PRN anxiety 05/30/23 04/07/24 History
ketotifen fumarate 0.025 % (0.035 1 drp BOTH EYES DAILYPRN PRN 05/30/23 04/07/24 History
%) eye drops irritated eyes
sacubitril 24 mg-valsartan 26 mg 1 tab PO QPM Heart Failure 08/16/23 04/07/24 History
tablet (Entresto)
acetaminophen 500 mg tablet 1,000 mg PO Q6HPRN PRN mild pain 04/07/24 04/07/24 History
(Tylenol Extra Strength)
Review of Systems
-
History Source: Patient
All other systems: Negative unless noted
Physical Exam
Vital Signs
Temp Pulse Resp BP Pulse Ox
97.7 F 80 22 164/77 97
04/07/24 18:19 04/07/24 19:00 04/07/24 19:00 04/07/24 19:00 04/07/24 18:53
Assessment / Plan
-
as above
Data Reviewed
-
CT Scan: Image Personally Visualized and interpreted, Discussed with Physician, Discussed with Nurse, Discussed with Patient and Discussed with Family
[2024-04-07 19:45] LABS: B.E. - POC -1.8 mmol/L; Glucose - POC 142 mg/dl (70-99); HCO3 - POC 23 mmol/L (21-28); Hematocrit - POC 35 % PCV (42-52); Hemodilution- POC No; Hemoglobin Calculated - POC 11.9; Ionized Calcium - POC 1.15 mmol/L (1.15-1.33); Lactate - POC 1.21 mmol/L (0.36-0.75); O2 Saturation %Calculated-POC 98.2 % (94-98); PCO2 - POC 38 mmHg (35-48); PO2 - POC 108 mmHg (83-108); Sodium - POC 128 mmol/L (136-145); Specimen Type - POC Arterial; pH - POC 7.39 (7.35-7.45)
[2024-04-07 19:49] LABS: % Basophils 0.2 % (0-2); % Immature Granulocytes 0.6 % (0-0.5); % Monocytes 4.7 % (1.7-9.3); % Neutrophils 72.5 % (42.2-75.2); Absolute Lymphocytes 1.1 10^3/uL (1.2-3.4); Absolute Monocytes 0.2 10^3/uL (0.1-0.6); Absolute Neutrophils 3.5 10^3/uL (1.4-6.5); Hematocrit 32.8 % (39.0-52.0); Hemoglobin 10.8 g/dL (13.0-18.0); Mean Corp Hgb Conc. 32.9 g/dL (33.0-37.0); Mean Corpuscular Hgb 35.1 pg (27.0-31.0); Mean Corpuscular Volume 106.5 fL (80.0-94.0); Mean Platelet Volume 10.7 fL (7.4-10.4); Nucleated Red Blood Cells % 0 % (-); Platelet Count 117 10^3/uL (130-400); Red Blood Cell Count 3.08 10^6/uL (4.70-6.10); Red Cell Dist. Width 14.2 % (11.5-14.5); White Blood Cell Count 4.9 10^3/uL (4.8-10.8)
[2024-04-07 20:01] LABS: INR 1.04; PT 13.9 Sec (11.4-14.6)
--- NOTE | 2024-04-07 20:01 | ED.GENMED ---
History of Present Illness
General
Chief Complaint: Vascular Symptoms
Source: patient and physician (Discussed with referring physician at [place])
Exam Limitations: none
Time Seen by Provider: 04/07/24 18:19
Nursing documentation reviewed up to this point in time: agreed with
History of Present Illness
History of Present Illness:
74-year-old male with extensive medical history as documented presents to the emergency room here as an ER to ER transfer from [facility]�was seen there for right hip pain over the past 48 hours and found to have active extravasation/arterial
bleed from right iliac artery with large hematoma. He is on aspirin but no other blood thinners. Vitals are stable. He was treated with pain medication and given steroid and Benadryl to prep for CT as he has a known IV dye allergy. Patient says
his pain is well-controlled here. Vascular surgery aware of patient.
Review of Systems
Review of Systems
All Other Systems: ROS reviewed and negative except as documented in HPI and ROS
Constitutional: Denies fever
Cardiac: Denies chest pain
ABD/GI: Denies abdominal pain
Musculoskeletal: Reports joint pain (Hip pain)
Phy Exam
Physical Exam
Physical Exam:
General: Well appearing and non-toxic
HEENT: protecting airway
Neck: appears supple
CV: No evidence of cyanosis
Resp: No accessory muscle use
Abd: Non-distended
Extremities: Patient has some bruising right lateral hip, strong palpable right femoral pulse and somewhat thready distal pulses DP/PT on the right
Neuro: Alert
Psych: Normal affect
Skin: Intact
Scores
Heart Failure Risk
Heart Failure Risk Score: Not Applicable
Heart Score for Chest Pain Patients
STEMI patient?: Not applicable
Withdrawal Assessment of Alcohol
Withdrawal Assessment Completed?: Not applicable
Course
Orders/Labs/Results
Orders:
Orders
04/07/24 18:19
Vascular Surgery Consult Urgent
Consulting Provider: Luis Alberto Cole III
Was physician already notified: Yes
04/07/24 18:55
Fentanyl Citrate/Pf [Sublimaze] 250 mcg .ROUTE .STK-MED ONE
Propofol [Diprivan] 80 ml .ROUTE .STK-MED
Rocuronium Craig [Rocuronium] 50 mg .ROUTE .STK-MED ONE
04/07/24 18:56
Midazolam HCl [Versed] 2 mg .ROUTE .STK-MED ONE
04/07/24 18:57
Heparin Sodium,Porcine/Ns/Pf [Heparin 2000 Units/1000 ml] 4,000 unit in 2,000 ml .ROUTE .STK-MED
04/07/24 19:02
Dexamethasone Sod Phosphate [Decadron] 20 mg .ROUTE .STK-MED ONE
Ondansetron Injectable [Zofran] 4 mg .ROUTE .STK-MED ONE
04/07/24 19:15
EPINEPHrine 4 mg/250 mL NSS [Adrenalin] 4 mg in 250 ml IV PER PROTOCOL
Initial dose in mcg/min, then titrate:: 2
Titrate to keep:: MAP > 65 mmHg
Titrate by mcg/min:: 0.5-1 mcg/min
Frequency of titrations (minutes):: 5
Maximum dose in mcg/min:: 10
Begin to taper infusion when:: Remained at goal for 4hrs
Taper by mcg/min:: 0.5-1 mcg/min
Frequency of taper (minutes) if patient maintains goal:: 30
Taper to off?: Yes
If infusion off & no longer maintaining goal:: Contact Provider
04/07/24 19:33
Ketamine 5 ml .ROUTE .STK-MED
04/07/24 19:37
Type+Screen Stat
Complete Blood Count/With Diff Stat
Comprehensive Metabolic Panel Urgent
Protime/PTT Stat
04/07/24 19:47
Vancomycin 1 Gram/200 ml [Vancocin] 1 gram in 200 ml .ROUTE .STK-MED
Abnormal Lab Results
04/07/24 04/07/24
19:37 19:39
RBC 3.08 L 10^6/uL
(4.70-6.10)
Hgb 10.8 L g/dL
(13.0-18.0)
Hct 32.8 L %
(39.0-52.0)
MCV 106.5 H fL
(80.0-94.0)
MCH 35.1 H pg
(27.0-31.0)
MCHC 32.9 L g/dL
(33.0-37.0)
Plt Count 117 L 10^3/uL
(130-400)
MPV 10.7 H fL
(7.4-10.4)
Absolute Lymphs (auto) 1.1 L 10^3/uL
(1.2-3.4)
Immature Gran % 0.6 H %
(0-0.5)
POC ABG O2 Sat (Calc) 98.2 H %
(94-98)
POC Glucose 142 H mg/dl
(70-99)
POC Sodium 128 L mmol/L
(136-145)
POC Potassium 7.0 H mmol/L
(3.5-5.1)
POC Lactate 1.21 H mmol/L
(0.36-0.75)
POC Hematocrit 35 L % PCV
(42-52)
04/07/24 19:37
Vital Signs
Initial and Last Documented VS:
Initial Vital Signs
Pulse Resp Pulse Ox
77 17 81
04/07/24 18:18 04/07/24 18:18 04/07/24 18:18
Last Documented Vital Signs
Temp Pulse Resp BP Pulse Ox
36.5 C 80 22 164/77 96
04/07/24 18:19 12/03/24 19:00 04/07/24 19:00 04/07/24 19:00 04/07/24 19:10
MDM/Problems Addressed
Differential Diagnosis Includes:
Arterial bleed
MDM/Problems Addressed:
74-year-old male presents as an ER to ER transfer for bleeding from iliac artery and surrounding hematoma. Reviewed case with referring physician as well as vascular surgeon here (Dr. Cole)�vascular at bedside on patient's arrival will plan to
take patient to the operating room. Discussed with hospitalist for admission pending OR.
Chronic conditions affecting care:
PVD, ESRD
*Pulse Oximetry
Patient hypoxic: no
*Critical Care Note
Total Time (30-74mins, 75-104mins- exclusive of procedures): Not Applicable
Data Reviewed
Review of Other/Old Records Reveals: Records (Reviewed external records from [facility] including lab work and imaging (CTA))
Source: patient, records and physician
Patient Management
Discussion with other providers: Hospitalist (Discussed with hospitalist) and Desktop Architect (Discussed with vascular surgery)
Escalation/DeEscalation of care consider admission/obs:
Admission indicated
ED Attending Note
-
Portions of this chart may have been created with voice recognition software.� Occasional wrong word or��sound alike� substitutions may have occurred due to the inherent limitations of voice recognition software.
Discharge Plan
Departure
Patient Disposition: Admit
Date of Disposition: 04/07/24
Time of Disposition: 18:24
Admit to doctor: Radha
Presentation/result/management discussed w/ accepting MD/DO: Hospitalist
Discharge Problem:
Iliac artery bleed, right
Interventions
Interventions:
*Risk Screen - Suicide Last Done: 04/07/24 19:00
*General Assessment Last Done: 04/07/24 18:19
*Neglect/Abuse Screening Last Done: 04/07/24 18:19
ED- Fall Risk Assessment Last Done: 04/07/24 18:30
*ED COVID-19 Vaccine History Last Done: 04/07/24 18:33
*Nursing Disposition Last Done: 04/07/24 19:10
ED- Cardiac Assessment Last Done: 04/07/24 18:36
ED- Pulmonary Assessment Last Done: 04/07/24 18:53
ED-Peripheral Vascular Assessment Last Done: 04/07/24 18:42
ED-Skin Assessment Last Done: 04/07/24 18:59
Discharge Date and Time
Discharge Date/Time: 04/07/24 19:11
[2024-04-07 20:02] LABS: APTT 33.6 Sec (23.4-35.0)
[2024-04-07 20:20] LABS: ALT (SGPT) 39 U/L (0-50); AST (SGOT) 50 U/L (17-59); Albumin 3.5 g/dl (3.5-5.0); Alkaline Phosphatase 132 U/L (38-126); Blood Urea Nitrogen 79 mg/dl (9-20); Carbon Dioxide 21 mmol/L (22-30); Chloride 93 mmol/L (98-107); Estimated Creatinine Clearance 5 ml/min; Glucose 137 mg/dl (70-99); Potassium 6.9 mmol/L (3.5-5.1); Sodium 132 mmol/L (135-145); Total Bilirubin 1.8 mg/dl (0.2-1.3); Total Protein 6.5 g/dl (6.3-8.2); eGFR 4.34
[2024-04-07 21:02] LABS: Glucose - Point of Care 216 mg/dl (70-99)
[2024-04-07 21:39] LABS: Blood Urea Nitrogen 81 mg/dl (9-20); Calcium 9.8 mg/dl (8.4-10.2); Carbon Dioxide 24 mmol/L (22-30); Chloride 93 mmol/L (98-107); Estimated Creatinine Clearance 5 ml/min; Glucose 220 mg/dl (70-99); Potassium 5.5 mmol/L (3.5-5.1); Sodium 133 mmol/L (135-145); eGFR 4.54
--- NOTE | 2024-04-07 22:00 | PTCARENOTE ---
Patient received from PACu, drowsy but oriented x3. NSR with BBC, blood pressure as documented. No edema noted. Bilateral PTs and DPs present by doppler. Lungs diminished bibasilar, pulse ox 98% on 2L. Abdomen soft with hypoactive bowel sounds.
Anuric. Bilateral arms with ecchymosis noted. sacral foam maintained. Right groin dressing clean dry and intact.LUE AV fistula bruit/thrill. Right radial [place] transduced and zeroed. #18 g left EJ flushed and patent, #22 g in RAC, #20 g in RFA
all flushed and patent. CHG bath given.
[2024-04-07] MEDS: KAYEXALATE SUSPENSION 30 GRAMS RECTAL (22:14)
[2024-04-07] MEDS: DILAUDID 0.5 MG IV (22:49)
[2024-04-08] VITALS (24 sets, daily range): BP systolic 90–147; BP diastolic 39–70; BMI 27.9
[2024-04-08 00:06] LABS: Hematocrit 30.3 % (39.0-52.0); Hemoglobin 9.8 g/dL (13.0-18.0)
--- NOTE | 2024-04-08 00:22 | PTCARENOTE ---
patient reassessed,resting comfortably, offers no complaints. Lab results noted and discussed with SURGICAL PRODUCT SALES CONSULTANT. Pulses remain present by doppler. No other changes in assessment
[2024-04-08 00:24] LABS: Blood Urea Nitrogen 83 mg/dl (9-20); Calcium 9.6 mg/dl (8.4-10.2); Carbon Dioxide 24 mmol/L (22-30); Chloride 93 mmol/L (98-107); Estimated Creatinine Clearance 5 ml/min; Glucose 146 mg/dl (70-99); Potassium 6.1 mmol/L (3.5-5.1); Sodium 132 mmol/L (135-145); eGFR 4.21
--- NOTE | 2024-04-08 03:41 | W.PN.UPDATE ---
Update Note
Progress Note Update
04/07/24
[address] Tamayo, discussed labs and hyperkalemia. Patient goes to hemodialysis [facility] outpatient. K was 6.9 and treated during OR with IV insulin and dextrose as well as bicarb IV. Repeat K was 5.5, Kayexalate 30mg ordered
rectally. No EKG changes, ectopy, or T waves noted.
0040 Repeat labs K was 6.1, results given to Dr. Tamayo, rod filler. Recommendations given to continue trending labs and plan for hemodialysis in the morning.
[2024-04-08] MEDS: ROXICODONE 5 MG PO ×2 (05:29→09:59)
[2024-04-08 05:51] LABS: Hematocrit 29.5 % (39.0-52.0); Hemoglobin 9.8 g/dL (13.0-18.0); Mean Corp Hgb Conc. 33.2 g/dL (33.0-37.0); Mean Corpuscular Volume 108.5 fL (80.0-94.0); Mean Platelet Volume 11.1 fL (7.4-10.4); Platelet Count 99 10^3/uL (130-400); Red Blood Cell Count 2.72 10^6/uL (4.70-6.10); Red Cell Dist. Width 14.1 % (11.5-14.5); White Blood Cell Count 6.9 10^3/uL (4.8-10.8)
[2024-04-08 05:54] LABS: PT 13.5 Sec (11.4-14.6)
[2024-04-08 05:55] LABS: APTT 37.8 Sec (23.4-35.0)
--- NOTE | 2024-04-08 06:01 | PTCARENOTE ---
Patient reassessed, medicated for 5/10 groin pain. while doing Neurovascular check small amount of peticahe noted on right inner thigh. groin site is unchanged, thigh is soft. Vascular surgeon notified
[2024-04-08 06:12] LABS: ALT (SGPT) 35 U/L (0-50); AST (SGOT) 43 U/L (17-59); Albumin 3.1 g/dl (3.5-5.0); Alkaline Phosphatase 107 U/L (38-126); Blood Urea Nitrogen 90 mg/dl (9-20); Calcium 9.5 mg/dl (8.4-10.2); Carbon Dioxide 24 mmol/L (22-30); Chloride 95 mmol/L (98-107); Estimated Creatinine Clearance 5 ml/min; Glucose 137 mg/dl (70-99); Phosphorus 9.9 mg/dl (2.5-4.5); Potassium 6.8 mmol/L (3.5-5.1); Sodium 135 mmol/L (135-145); Total Bilirubin 1.4 mg/dl (0.2-1.3); Total Protein 5.9 g/dl (6.3-8.2); eGFR 4.04
--- NOTE | 2024-04-08 07:11 | W.IMMPOSTOP ---
Surgical Immed Post Op Note
-
Primary Surgeon: Dr. Kathya Alejandra MD
Assisting Surgeon: Clark Slaughter MD, PhD (PGY-2)
Pre-op Diagnosis: Right iliac rupture and retroperitoneal bleed
Post-op Diagnosis: Right iliac rupture and retroperitoneal bleed
Procedure Performed: Right iliac balloon angioplasty and stent placement
Anesthesia Type: General
Specimen / Cultures: None
Estimated Blood Loss: Minimal
Complications: None
Operative Findings: The patient was brought to the OR and placed in the supine position. The patient was prepped and draped in usual sterile fashion. Under ultrasound guidance the right common femoral artery was accessed with a micropuncture needle
and catheter. This was upsized to a 5Fr sheath over an Amplatz wire. Diagnostic arteriogram showed active extravasation of the right iliac artery at the site between two prior stents (a proximal stent located at common into external iliac; and a
distal stent into the external iliac). This site was the site of the right iliac rupture. A viabahn stent was delivered at this location, overlapping the prior proximal and distal iliac stents. A balloon angioplasty was performed to profile the
stent against the vessel. A completion arteriogram showed cessation of extravasation and good coverage with the overlapping stents. All wires and sheaths were removed. At the completion of the case, the patient was transferred to the PACU in stable
condition. Doppler signal was noted in the right PT but not DP.
--- NOTE | 2024-04-08 07:47 | PTCARENOTE ---
Dr. Rodriguez and vascular team to bedside for am rounds, updated to status, VS, am labs.
--- NOTE | 2024-04-08 07:50 | W.PN.VS ---
Addendum entered and electronically signed by Moise Rodriguez MD 04/08/24 10:44:
Seen and examined with MEKA Guzman. Agree with findings as noted below. Patient without significant complaints. Abdomen soft, nondistended, nontender. Right groin flat, no hematoma. Left foot warm with palpable DP pulse 1+/2+, PT palp 2+. Calf
is soft. Compartments all soft. Right foot warm with 1+ palpable DP pulse, 2+ PT. plan/as discussed and noted below.
Original Note:
Today's Communication / Plan
-
Seen and assessed with Dr. Rodriguez
Assessment/Plan
-
Postop day 0.5 covered stent to right iliac artery
Plan
� HD this a.m. per nephrology
- DC A-line
� Increase diet
� Repeat labs at 12
� Continue aspirin, will start anticoagulation today as well
Subjective Data
-
Date of Service: April 08, 2024
Patient seen at bedside exam with Dr. Rodriguez. Patient with no complaints this time. Bilateral feet warm. Doppler signals +. K6.8 nephrology aware patient for HD this morning, asymptomatic.
Objective Data
-
Vital Signs
Temp Pulse Resp BP Pulse Ox
97.4 F 54 19 145/44 99
04/08/24 04:00 04/08/24 07:45 04/08/24 07:45 04/08/24 06:00 04/08/24 07:45
Intake and Output
04/07/24 04/08/24 04/09/24
06:59 06:59 06:59
Intake Total 150 / 150
Balance 150 / 150
Intake:
IV fluids (Total) 150 / 150
NS 150 / 150
Lab Results
04/08/24 05:19
Calcium 9.5 mg/dl (8.4-10.2) 04/08/24 05:19
Phosphorus 9.9 mg/dl (2.5-4.5) H 04/08/24 05:19
Magnesium 3.0 mg/dl (1.6-2.3) H 04/08/24 05:19
Total Bilirubin 1.4 mg/dl (0.2-1.3) H 04/08/24 05:19
Direct Bilirubin 1.0 mg/dl (0.0-0.4) H 04/08/24 05:19
AST 43 U/L (17-59) 04/08/24 05:19
ALT 35 U/L (0-50) 04/08/24 05:19
Alkaline Phosphatase 107 U/L (38-126) 04/08/24 05:19
Total Protein 5.9 g/dl (6.3-8.2) L 04/08/24 05:19
Albumin 3.1 g/dl (3.5-5.0) L 04/08/24 05:19
Physical Exam
-
AAOx3
No tachypnea on room air
No tachycardia
Abdomen soft
Groin site clean, dry, intact, soft, flat
+ PT Doppler signal
[2024-04-08] MEDS: TYLENOL 650 MG PO (08:00)
--- NOTE | 2024-04-08 08:20 | W.CON.NEPH ---
Consultation
-
Date/Time Consultation Requested: 04/08/2024 7:00 AM
Date/Time Consultation Performed: 04/08/2024 8:15 AM
Requesting Provider: Dr. Cole
Performing Provider: Dr. Dixon
Reason for Consultation: End-stage renal disease/hyperkalemia
Medical History
-
Chief Complaint: End-stage renal disease and hyperkalemia
History of Present Illness:
The patient is 74-year-old male with a past medical history of end-stage renal disease who dialyzes Wednesdays and Fridays. He has a history of congestive heart failure and is maintained on Entresto. He is maintained on sevelamer for
hyperphosphatemia. He was brought to the hospital for right iliac stent following CT angiogram which revealed rupture of right iliac artery near the iliac bifurcation. Nephrology was consulted for end-stage renal disease and refractory
hyperkalemia.
Past Medical History
End-stage renal disease Saturday
Cardiomyopathy with ejection fraction of 30%
Anemia
Hyperphosphatemia
Anxiety
Peripheral vascular disease
Coronary artery disease with history of CABG
Peripheral arterial disease with history of aortic stent
AV fistula
COPD
Pacer
Past Medical History: None
Past Surgical History: Other (fistula placement, CABG, stents, aorta stent, L CEA)
Social History
Tobacco: Non-Smoker
Alcohol: None
Drug: None
Personal:
Living: With Family
Family History
Family History: Not Pertinent
Allergies / Home Medications
Allergy/AdvReac Type Severity Reaction Status Date / Time
clopidogrel bisulfate Allergy pt states Verified 04/07/24 18:18
[From Plavix] he get
very weak
and pale
after
taking,
nausea
Iodinated Contrast Media Allergy PANCREATITS Verified 04/07/24 18:18
POST
CARDIAC
CATH
penicillin V potassium Allergy throat Verified 04/07/24 18:18
[From Jackie Cuadra] closing/
anaphylaxis
�Medication �Instructions �Recorded �Confirmed �Type
atorvastatin 80 mg tablet 80 mg PO DAILY High cholesterol 02/05/20 04/07/24 History
cholecalciferol (vitamin D3) 25 1,000 unit PO DAILY Supplement 02/05/20 04/07/24 History
mcg (1,000 unit) capsule (Vitamin
D3)
tamsulosin 0.4 mg capsule (Flomax) 0.4 mg PO HS Urinary issue 02/05/20 04/07/24 History
cetirizine 10 mg tablet 10 mg PO DAILYPRN PRN allergies 07/29/20 04/07/24 History
ezetimibe 10 mg tablet 10 mg PO DAILY High cholesterol 07/29/20 04/07/24 History
aspirin 81 mg chewable tablet 81 mg PO DAILY Blood clot 08/02/20 04/07/24 Rx
prevention/tx #0 tabs
cyanocobalamin (vitamin B-12) 1,000 mcg PO DAILY Supplement #30 08/02/20 04/07/24 Rx
1,000 mcg tablet tabs
febuxostat 40 mg tablet 40 mg PO DAILY Gout 08/29/21 04/07/24 History
sevelamer carbonate 800 mg tablet 2,400 mg PO MEALS phosphate binder 01/30/22 04/07/24 History
(Renvela)
alprazolam 0.5 mg tablet 0.5 mg PO HSPRN PRN anxiety 05/30/23 04/07/24 History
ketotifen fumarate 0.025 % (0.035 1 drp BOTH EYES DAILYPRN PRN 05/30/23 04/07/24 History
%) eye drops irritated eyes
sacubitril 24 mg-valsartan 26 mg 1 tab PO QPM Heart Failure 08/16/23 04/07/24 History
tablet (Entresto)
acetaminophen 500 mg tablet 1,000 mg PO Q6HPRN PRN mild pain 04/07/24 04/07/24 History
(Tylenol Extra Strength)
Review of Systems
-
History Source: Patient
All other systems: Negative unless noted
Musculoskeletal: Other (Right flank pain)
Physical Exam
Vital Signs
Vital Signs
Temp Pulse Resp BP Pulse Ox
97.4 F 54 19 145/44 99
04/08/24 04:00 04/08/24 07:45 04/08/24 07:45 04/08/24 06:00 04/08/24 07:45
Lab Results
WBC 6.9 10^3/uL (4.8-10.8) 04/08/24 05:19
RBC 2.72 10^6/uL (4.70-6.10) L 04/08/24 05:19
Plt Count 99 10^3/uL (130-400) L 04/08/24 05:19
eGFR 4.04 04/08/24 05:19
Phosphorus 9.9 mg/dl (2.5-4.5) H 04/08/24 05:19
Albumin 3.1 g/dl (3.5-5.0) L 04/08/24 05:19
Physical Exam
General: AOx3, Nontoxic , NAD
HEENT: PERRL, EOMI, Anicteric, Conjunctivae Clear, Ear/Nose Intact, Hearing Normal, Oropharynx Clear/Moist, Dentition Intact, Facial Symmetry, Neck Supple, Neck: Trachea Midline, No JVD and No Thyromegaly, no Bruits
Respiratory: Clear to auscultation, decreased breath sounds to bases, bilaterally with normal lung exersion
Cardiac: S1/S2 and Regular Rate/Rhythm nenita with occasional ectopy
Breast: Deferred by me
Abdomen: Soft, Nontender, Nondistended, Normal Bowel Sounds and No Hepatosplenomegaly
Rectal: Deferred by Provider
Genito-urinary: No Costovertebral Tenderness
Extremities: No Clubbing, No Cyanosis and No Edema
Skin: No Rash or open lesions, small amount of petechia along right groin site
Neuro: Nonfocal/Grossly Intact, CN II-XII (Intact) and Strength (Musculoskeletal exam 5 out of 5 both upper and lower extremities)
Hematologic/Lymphatic: No Cervical Lymphadenopathy, No Submandibular Lymphadenopathy and No Supraclavicular Lymphadenopathy
Psych: Mood/afflect pleasant, Insight/judgement good and Appropriate
Vascular: plus feint pedal and plus 1 radial pulses
Vascular Access: AVF (Left upper extremity)
Data Reviewed
-
Radiology: Report Reviewed by me (Chest x-ray reviewed sternal wires right-sided pacemaker/no CHF)
Medical Tests (Nuc Med, Echo etc): Other
Labs: Labs Reviewed by me (BMP CBC)
Old Records: Reviewed (Reviewed previous nephrology consult from date 08/17/2023 for end-stage renal disease)
Assessment/Plan
-
Impression
End-stage renal disease Saturday for
Status post right iliac stent
Anemia
Hyperkalemia
Hyperphosphatemia
Cardiomyopathy with ejection fraction of 30%
Peripheral vascular disease
Coronary artery disease with history of CABG
Hypertension
Plan:
-urgent HD re: refractory hyperkalemia for 4hr on 2K bath
-Maintain sevelamer for hyperphosphatemia
-ROXANA provided for anemia
-Appropriate dietary restrictions and fluid restriction for ESRD
-Antihypertensives for hypertension
--- NOTE | 2024-04-08 08:28 | CON.INTV ---
Consultation
Consultation Request
Date/Time Consultation Requested: 04/07/20242199
Date/Time Consultation Performed: 04/08/2024824
Requesting Provider: THERESA Hoyos
Performing Provider: Matthias Ram MD
Reason for Consultation: Ruptured right iliac artery
Medical History
-
Chief Complaint: Right hip pain
History of Present Illness:
74-year-old male former tobacco smoker with a past medical history of AAA, PAD, right carotid artery occlusion, hypertension, ESRD on HD, history of NSTEMI, pulmonary hypertension, BPH and chronic anemia who presents with right hip pain X 2 days.
He had previously been seen at [facility] and was discharged home however pain continued and he went to [place] again and reportedly CTA demonstrated a contained rupture of his right iliac artery near the iliac bifurcation just distal to the
right iliac limb. Initially he was afebrile to 97.3 �F, pulse rate 65, BP 188/53 and saturating 98% on 2 L/min. Initial labs showed Hb 10.8, platelets 117, potassium 6.9, creatinine 11.1, and T. bili 1.8. He went to the OR and underwent stenting
stent placement with balloon angioplasty to the right common iliac artery. He was transferred to the ICU postoperatively for further care, and project superintendent services consulted for additional management/recommendations.
When I saw the patient this morning he was resting in bed in no acute distress on HD. UF goal today is 2.5 L. He still endorses right-sided hip pain but it is markedly improved. He is currently saturating 100% on 2 L/min nasal cannula, heart rate
64 and BP 101/53. She denies chest pain, SOB, MOONEY, abdominal pain, nausea, fevers or chills.
PMHx: PAD, AAA, right carotid artery occlusion, hypertension, secondary hyperparathyroidism, CKD stage IV on HD, history of proteinuria, history of NSTEMI, emphysema, pulmonary hypertension, BPH, anemia
PSHx: Left CEA, CABG, EVAR (09/2021), fistula creation (01/2022)
Past Medical History
Past Medical History: Other (Above as per HPI)
Past Surgical History: Other (Above as per HPI)
Social History
Tobacco: Former Smoker
Alcohol: None
Drug: None
Personal:
Living: With Family
Family History
Family History: CAD (Father + mother)
Allergies / Home Medications
Allergies
Allergy/AdvReac Type Severity Reaction Status Date / Time
clopidogrel bisulfate Allergy pt states Verified 04/07/24 18:18
[From Plavix] he get
very weak
and pale
after
taking,
nausea
Iodinated Contrast Media Allergy PANCREATITS Verified 04/07/24 18:18
POST
CARDIAC
CATH
penicillin V potassium Allergy throat Verified 04/07/24 18:18
[From Pen-Vee K] closing/
anaphylaxis
Home Medications
�Medication �Instructions �Recorded �Confirmed �Last Taken �Type
atorvastatin 80 mg tablet 80 mg PO DAILY High cholesterol 02/05/20 04/07/24 08/16/23 History
cholecalciferol (vitamin D3) 25 1,000 unit PO DAILY Supplement 02/05/20 04/07/24 08/16/23 History
mcg (1,000 unit) capsule (Vitamin
D3)
tamsulosin 0.4 mg capsule (Flomax) 0.4 mg PO HS Urinary issue 02/05/20 04/07/24 08/15/23 History
cetirizine 10 mg tablet 10 mg PO DAILYPRN PRN allergies 07/29/20 04/07/24 06/03/23 21:00 History
ezetimibe 10 mg tablet 10 mg PO DAILY High cholesterol 07/29/20 04/07/24 08/16/23 History
aspirin 81 mg chewable tablet 81 mg PO DAILY Blood clot 08/02/20 04/07/24 08/16/23 Rx
prevention/tx #0 tabs
cyanocobalamin (vitamin B-12) 1,000 mcg PO DAILY Supplement #30 08/02/20 04/07/24 08/16/23 Rx
1,000 mcg tablet tabs
febuxostat 40 mg tablet 40 mg PO DAILY Gout 08/29/21 04/07/24 08/16/23 History
sevelamer carbonate 800 mg tablet 2,400 mg PO MEALS phosphate binder 01/30/22 04/07/24 06/03/23 18:00 History
(Renvela)
alprazolam 0.5 mg tablet 0.5 mg PO HSPRN PRN anxiety 05/30/23 04/07/24 06/03/23 23:00 History
ketotifen fumarate 0.025 % (0.035 1 drp BOTH EYES DAILYPRN PRN 05/30/23 04/07/24 08/16/23 History
%) eye drops irritated eyes
sacubitril 24 mg-valsartan 26 mg 1 tab PO QPM Heart Failure 08/16/23 04/07/24 08/15/23 History
tablet (Entresto)
acetaminophen 500 mg tablet 1,000 mg PO Q6HPRN PRN mild pain 04/07/24 04/07/24 Unknown History
(Tylenol Extra Strength)
Review of Systems
-
History Source: Patient
All other systems: Negative unless noted
Vitals / Labs / Diagnostic Testing
Vital Signs
Temp Pulse Resp BP Pulse Ox
97.5 F 58 12 138/43 99
04/08/24 08:00 04/08/24 08:45 04/08/24 08:45 04/08/24 08:15 04/08/24 09:02
Laboratory Results
04/07/24 04/08/24
19:37 05:19
PT 13.9 13.5
INR 1.04 1.00
APTT 33.6 37.8 H
Diagnostic Testing:
Physical Exam
-
HEENT: Normocephalic, Anicteric and Moist Mucous Membranes
Cardiovascular: S1/S2 and Peripheral Edema (negative)
Respiratory: Clear, Wheeze (negative), Rales (negative), Rhonchi (negative) and Non-Labored Respirations
GI: Soft, Non Distended, Non Tender and Normal Bowel Sounds
Neurology: Awake, Alert and Tremors (negative)
Skin: Warm and Dry
General: Respiratory Distress (negative), Comfortable, Fever (negative) and Chills (negative)
Assessment
-
Assessment: 74-year-old male former tobacco smoker with a past medical history of AAA, PAD, right carotid artery occlusion, hypertension, ESRD on HD, history of NSTEMI, pulmonary hypertension, BPH and chronic anemia who presents with right hip pain
X 2 days. He had previously been seen at [facility] and was discharged home however pain continued and he went to [place] again and reportedly CTA demonstrated a contained rupture of his right iliac artery near the iliac bifurcation just
distal to the right iliac limb. Initially he was afebrile to 97.3 �F, pulse rate 65, BP 188/53 and saturating 98% on 2 L/min. Initial labs showed Hb 10.8, platelets 117, potassium 6.9, creatinine 11.1, and T. bili 1.8. He went to the OR and
underwent stenting stent placement with balloon angioplasty to the right common iliac artery. He was transferred to the ICU postoperatively for further care, and project superintendent services consulted for additional management/recommendations.
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
Impression:
#Right common iliac artery rupture s/p covered stent insertion + balloon angioplasty to right common iliac artery (POD #1)
#Acute thrombocytopenia due to above
#Chronic anemia
#Hyperkalemia with metabolic acidosis with increased AG in setting of ESRD on HD
#Hyperphosphatemia in the setting of ESRD on HD
#Hyperbilirubinemia
#Hyperglycemia
#Chronic HFrEF with LVEF 30-35% with stage II diastolic dysfunction and moderate/severe MR with enlarged RV and moderate TR with pulmonary hypertension - PASP 51 mmHg (via TTE on 08/19/2023)
Plan:
Postoperative surgical intensive care unit monitoring (bordered in the CVICU)
Continue DAPT with ASA + plavix
Supplemental oxygen as needed to maintain SpO2 >90-94%
prn nebulized bronchodilators - not currently bronchospastic
Incentive spirometry encouraged 10x per hour for at least 4 hrs a day
Aspiration precautions
Pain control
Neuro and vascular checks per protocol
Maintain MAP>65
Replete electrolytes with K>4, Mg>2
Continue Entresto
Maintain euglycemia with goal BG 140-180; check A1C
Continue with HD as per nephrology
Continue with sevelamer
Monitor for recurrence of hyperkalemia
Trend sHCO3 level
Trend LFTs
Vascular surgery following-correspondence and operative notes reviewed
Transfuse blood products as needed to keep Hb>7g/dL, and plt>50k (given post-operative status)
DVT prophylaxis: defer starting chemical ppx to vascular surgery; for now continue SCDs
Early nutrition
Early mobilization
Patient is stable for downgrade out of CVICU to telemetry. No additional recommendations at this time. Mangle Press Catcher/Pulmonary service will now sign off. Thank you for allowing us to be involved in the care of this patient. Please reconsult if
there are any additional questions/concerns, or if patient's respiratory status deteriorates.
Total time spent today was 77 minutes for this encounter. Time includes reviewing laboratory test/imaging results, reviewing pertinent medical records, obtaining and reviewing medical history, performing an appropriate exam, ordering medications,
tests and procedures. Time also includes documentation of this encounter, coordinating patient care and communicating with other healthcare professionals. Total time does not include separately billed tests performed on this date of service.
--- NOTE | 2024-04-08 08:43 | W.PN.NEPH.HD ---
Assessment
-
Patient seen on dialysis
Systolic blood pressure stable at 138 at current UF
No heparin
Right groin pain improved
Progress Note - Hemodialysis
-
Date of Service: April 08, 2024
Duration: 4 hours
Potassium Bath: 2
Calcium Bath: 2.5
Opti-Dialyzer: 160
Ultrafiltration: Other (3 kg)
Blood Flow: 400
Dialysate Flow: 600
Heparin: None
EPO: none
[2024-04-08] MEDS: FLEXBUMIN 25% FOR HEMODIALYSIS 12.5 GRAMS IV ×2 (08:53→10:19)
[2024-04-08] MEDS: MANNITOL 25% 12.5 GRAMS IV ×2 (08:53→10:19)
[2024-04-08] MEDS: LOW STRENGTH ASPIRIN 81 MG PO (09:16)
[2024-04-08] MEDS: LIPITOR 80 MG PO (09:16)
[2024-04-08] MEDS: RENVELA PO (10:32)
--- NOTE | 2024-04-08 12:02 | PTCARENOTE ---
VS obtained, assessment stable. Patient nearing completion of HD, states pain improved w/pain medication. Marcia Hawkins NP, to bedside, updated to status.
[2024-04-08 12:42] LABS: Hematocrit 32.1 % (39.0-52.0); Hemoglobin 10.7 g/dL (13.0-18.0)
[2024-04-08 13:00] LABS: Blood Urea Nitrogen 20 mg/dl (9-20); Calcium 9.3 mg/dl (8.4-10.2); Carbon Dioxide 29 mmol/L (22-30); Chloride 94 mmol/L (98-107); Estimated Creatinine Clearance 18 ml/min; Glucose 107 mg/dl (70-99); Potassium 3.4 mmol/L (3.5-5.1); Sodium 139 mmol/L (135-145); eGFR 20.07
--- NOTE | 2024-04-08 13:59 | CM ---
Reviewed chart, Met with and Mrs. Saini to review discharge plans. He states prior to admission he resides with his spouse in a two story home with one step to enter. He states he fourteen steps to get to bedroom/full bathroom. He states he
has a powder room on the first floor. He states prior to admission he was independent with ambulation and adls. He states he goes to outpatient dialysis at [facility]. He goes Saturday, Saturday and Saturday
at 6:[address] a[address] He drives himself. He states he has has [facility] in the past. He states he was in [facility] the past for SNF/Rehab. He states he gets his medications from the [facility] via mail order. Will need to see his current
functional level to see if he will have any skilled care needs. Medical work-up in progress. The discharge plan is to return home with his spouse and [facility] if indicated versus SNF/Rehab. if indicated when medically stable.
[2024-04-08] MEDS: RENVELA 2400 MG PO ×2 (14:35→17:06)
[2024-04-08] MEDS: PROTONIX 40 MG PO (14:35)
--- NOTE | 2024-04-08 16:37 | PTCARENOTE ---
Report given to CARMEN Amaro, 2N. Patient and all belongings transferred, family at bedside.
--- NOTE | 2024-04-08 16:59 | PTCARENOTE ---
Received patient from CVICU in wheelchair. AAOX3 able to make needs known. Placed on tele #[phone] Sinus Ricci with BBB. Family at bedside. Oriented to room and use of call galvez. R groin with dressing clean, dry, and intact. Call galvez within reach.
[2024-04-08] MEDS: ENTRESTO 24 MG/26 MG 1 TAB PO (17:06)
[2024-04-08 18:36] LABS: Hemoglobin 10.4 g/dL (13.0-18.0)
[2024-04-08] MEDS: XANAX 0.5 MG PO (21:51)
[2024-04-09] VITALS (8 sets, daily range): BP systolic 99–142; BP diastolic 44–64; PULSE 64; O2SAT 95; BMI 26.7
[2024-04-09 00:07] LABS: Hematocrit 28.6 % (39.0-52.0); Hemoglobin 9.7 g/dL (13.0-18.0)
[2024-04-09] MEDS: TYLENOL 650 MG PO (05:18)
[2024-04-09 06:41] LABS: Hematocrit 31.9 % (39.0-52.0); Hemoglobin 10.4 g/dL (13.0-18.0)
[2024-04-09 07:20] LABS: ALT (SGPT) 31 U/L (0-50); AST (SGOT) 39 U/L (17-59); Albumin 3.4 g/dl (3.5-5.0); Alkaline Phosphatase 95 U/L (38-126); Blood Urea Nitrogen 54 mg/dl (9-20); Carbon Dioxide 30 mmol/L (22-30); Chloride 93 mmol/L (98-107); Estimated Creatinine Clearance 8 ml/min; Glucose 118 mg/dl (70-99); Magnesium 2.7 mg/dl (1.6-2.3); Phosphorus 6.6 mg/dl (2.5-4.5); Potassium 4.7 mmol/L (3.5-5.1); Sodium 136 mmol/L (135-145); Total Bilirubin 1.2 mg/dl (0.2-1.3); Total Protein 6.2 g/dl (6.3-8.2); eGFR 7.55
[2024-04-09] MEDS: LIPITOR 80 MG PO (07:49)
[2024-04-09] MEDS: LOW STRENGTH ASPIRIN 81 MG PO (07:49)
[2024-04-09] MEDS: PROTONIX 40 MG PO (07:49)
[2024-04-09] MEDS: RENVELA 2400 MG PO ×3 (07:49→17:23)
[2024-04-09 08:38] LABS: Glycohemoglobin (HgbA1c) 5.5 % (4.0-5.6)
--- NOTE | 2024-04-09 11:03 | W.PN.VS ---
Today's Communication / Plan
-
Seen and assessed with Dr Rodriguez
Assessment/Plan
-
Postop day 1.5 covered stent to right iliac artery
Plan
� Pt cannot take Plavix/Brilinta d/t history of GI bleed ...
- HD per nephrology
- PT/OT
- DC planning
Subjective Data
-
Date of Service: April 09, 2024
Pt seen at bedside this am with Dr Rodriguez. No events overnight. No complaints at this time. Looking forward to working with PT today.
Objective Data
-
Vital Signs
Temp Pulse Resp BP Pulse Ox
98 F 54 17 121/44 96
04/09/24 07:00 04/09/24 07:00 04/09/24 07:00 04/09/24 07:00 04/09/24 07:00
Intake and Output
04/08/24 04/09/24 04/10/24
06:59 06:59 06:59
Intake Total 150 / 150 370 / 370
Balance 150 / 150 370 / 370
Intake:
Oral fluids 370 / 370
IV fluids (Total) 150 / 150
NS 150 / 150
Lab Results
04/09/24 05:21
04/09/24 05:20
Calcium 9.0 mg/dl (8.4-10.2) 04/09/24 05:20
Phosphorus 6.6 mg/dl (2.5-4.5) H 04/09/24 05:20
Magnesium 2.7 mg/dl (1.6-2.3) H 04/09/24 05:20
Total Bilirubin 1.2 mg/dl (0.2-1.3) 04/09/24 05:20
Direct Bilirubin 1.0 mg/dl (0.0-0.4) H 04/08/24 05:19
AST 39 U/L (17-59) 04/09/24 05:20
ALT 31 U/L (0-50) 04/09/24 05:20
Alkaline Phosphatase 95 U/L (38-126) 04/09/24 05:20
Total Protein 6.2 g/dl (6.3-8.2) L 04/09/24 05:20
Albumin 3.4 g/dl (3.5-5.0) L 04/09/24 05:20
Physical Exam
-
AAOx3
No tachypnea on room air
No tachycardia
Abdomen soft
Groin site clean, dry, intact, soft, flat
+ PT Doppler signal
--- NOTE | 2024-04-09 12:55 | W.PN.NEPH.PH ---
Today's Communication / Plan
-
Dialysis tomorrow orders provided
Assessment/Plan
-
Impression
End-stage renal disease Saturday for
Status post right iliac stent
Anemia
Hyperkalemia
Hyperphosphatemia
Cardiomyopathy with ejection fraction of 30%
Peripheral vascular disease
Coronary artery disease with history of CABG
Hypertension
Plan:
-Dialysis for tomorrow
-Maintain sevelamer for hyperphosphatemia
-ROXANA provided for anemia
-Appropriate dietary restrictions and fluid restriction for ESRD
-Antihypertensives for hypertension
-
-
Date of Service: April 09, 2024
CC / HPI / ROS
-
Chief Complaint:
ESRD
History of Present Illness:
ESRD Saturday
Hemodynamically labile
Review of Systems:
No chest pain or shortness of breath
Some residual right groin pain
Labs
-
Labs:
WBC 6.9 10^3/uL (4.8-10.8) 04/08/24 05:19
RBC 2.72 10^6/uL (4.70-6.10) L 04/08/24 05:19
Hgb 10.4 g/dL (13.0-18.0) L 04/09/24 05:21
Hct 31.9 % (39.0-52.0) L 04/09/24 05:21
Plt Count 99 10^3/uL (130-400) L 04/08/24 05:19
Sodium 136 mmol/L (135-145) 04/09/24 05:20
Potassium 4.7 mmol/L (3.5-5.1) D 04/09/24 05:20
Chloride 93 mmol/L (98-107) L 04/09/24 05:20
Carbon Dioxide 30 mmol/L (22-30) 04/09/24 05:20
BUN 54 mg/dl (9-20) H 04/09/24 05:20
Creatinine 7.0 mg/dL (0.7-1.3) H* 04/09/24 05:20
eGFR 7.55 04/09/24 05:20
Glucose 118 mg/dl (70-99) H 04/09/24 05:20
Calcium 9.0 mg/dl (8.4-10.2) 04/09/24 05:20
Phosphorus 6.6 mg/dl (2.5-4.5) H 04/09/24 05:20
Albumin 3.4 g/dl (3.5-5.0) L 04/09/24 05:20
Physical Exam
-
Vital Signs:
Vital Signs
Temp Pulse Resp BP Pulse Ox
98.4 F 62 17 99/49 96
04/09/24 11:10 04/09/24 11:10 04/09/24 11:10 04/09/24 11:10 04/09/24 11:10
Cardiovascular:: Regular rate and rhythm
Respiratory:: Bilateral: Coarse
Lung Excursion:: Normal
Abdomen:: Nontender and Soft
Bowel Sounds:: Normal
Extremity Edema:: None: Bilateral:
Cole Catheter: No
Other Findings::
LUE AVF
--- NOTE | 2024-04-09 15:28 | CM ---
Patient seen at home with and daughter
Await PT/OT evals
Discussed discharge planning
Patient to have dialysis tomorrow
CM to follow up
PLAN: Await PT/OT eval
[2024-04-09] MEDS: ROXICODONE 5 MG PO ×2 (15:54→20:22)
[2024-04-09] MEDS: ENTRESTO 24 MG/26 MG PO (17:48)
--- NOTE | 2024-04-09 17:52 | PTCARENOTE ---
Pt refusing SCD's, MD aware.
[2024-04-10] VITALS (7 sets, daily range): BP systolic 101–141; BP diastolic 36–79; BMI 27.0
[2024-04-10 06:46] LABS: Carbon Dioxide 24 mmol/L (22-30); Chloride 93 mmol/L (98-107); Potassium 5.1 mmol/L (3.5-5.1); Sodium 134 mmol/L (135-145)
[2024-04-10 07:29] LABS: Hemoglobin 12.5 g/dL (13.0-18.0)
--- NOTE | 2024-04-10 09:49 | W.PN.VS ---
Addendum entered and electronically signed by Luis Alberto Cole III, MD 04/10/24 10:20:
This patient was seen and examined with THERESA Garcia. I agree with the history and physical exam as well as the assessment and plan. I have the following additions:
Looks great
On dialysis circuit currently
Right groin is flat and without hematoma
Right lower quadrant soft and nontender
Home today
Follow-up with me in the office in approximately [address] angiogram of the abdomen and pelvis
Signed:
Luis Alberto Cole III, MD
[facility] Vascular Surgery
[phone] (iwfe)
Original Note:
Today's Communication / Plan
-
Patient seen and examined at bedside with Dr. Luis Alberto Cole III, below plan reviewed with attending.
Assessment/Plan
-
Postop day 3 covered stent to right iliac artery
Plan
- HD per nephrology
- PT/OT recommending home with home health
-Discharge today following HD
-Follow-up in our surgical office placed in discharge instructions
Subjective Data
-
Date of Service: April 10, 2024
Patient seen and examined at bedside while on HD circuit, offers no complaints. Denies nausea, vomiting, fever, and chills. Reports eagerness for discharge to home.
Objective Data
-
Vital Signs
Temp Pulse Resp BP Pulse Ox
98.9 F 76 16 132/50 98
04/10/24 07:21 04/10/24 07:21 04/10/24 07:21 04/10/24 07:21 04/10/24 07:21
Intake and Output
04/09/24 04/10/24 04/11/24
06:59 06:59 06:59
Intake Total 370 / 370 360 / 360
Balance 370 / 370 360 / 360
Intake:
Oral fluids 370 / 370 360 / 360
Lab Results
04/10/24 05:37
04/10/24 05:37
Calcium 9.0 mg/dl (8.4-10.2) 04/09/24 05:20
Phosphorus 6.6 mg/dl (2.5-4.5) H 04/09/24 05:20
Magnesium 2.7 mg/dl (1.6-2.3) H 04/09/24 05:20
Total Bilirubin 1.2 mg/dl (0.2-1.3) 04/09/24 05:20
Direct Bilirubin 1.0 mg/dl (0.0-0.4) H 04/08/24 05:19
AST 39 U/L (17-59) 04/09/24 05:20
ALT 31 U/L (0-50) 04/09/24 05:20
Alkaline Phosphatase 95 U/L (38-126) 04/09/24 05:20
Total Protein 6.2 g/dl (6.3-8.2) L 04/09/24 05:20
Albumin 3.4 g/dl (3.5-5.0) L 04/09/24 05:20
Physical Exam
-
AAOx3
No tachypnea on room air
No tachycardia
Abdomen soft
Groin site clean, dry, intact, soft, flat
+ PT Doppler signal
--- NOTE | 2024-04-10 09:50 | PTCARENOTE ---
pt had a run of 14 PVC's with a HR 98-100 while receiving dialysis. no change is status AO. BP stable. strip in chart.
[2024-04-10] MEDS: RETACRIT 2000 UNITS IV (10:18)
[2024-04-10] MEDS: FLEXBUMIN 25% FOR HEMODIALYSIS 12.5 GRAMS IV ×2 (10:25→11:27)
--- NOTE | 2024-04-10 10:32 | W.DS.TRANS ---
DC Summary - Systems Technologist
-
Discharge Instructions:
Sleep Apnea Risk Intermediate
Discharge Diagnosis/Procedures Right iliac artery stent
Diet As tolerated,2 Gram Sodium
Activity No strenuous activity
Driving Restrictions No driving for 1 week
Bathing Restrictions OK to Shower
Others Tests You need to obtain a CT scan prior to your
vascular surgery follow-up we recommend you
schedule the scan the week of 04/27/24- 05/01/24
please call our central scheduling department
at [phone]. [address] scan will use contrast
dye and you have indicated you are allergic, we
have electronically sent prescriptions for
premedication for your contrast dye allergy to
your pharmacy on record ([facility]).
Please take these medications as prescribed
prior to your CT scan.
Other Services VN
Instructions:
Stand-Alone Forms: DC Instr - Vascular OR
Changes to Home Medications: No
Discharge Medications:
DC Medications w/original date entered in [facility]
atorvastatin 80 mg tablet 80 mg PO DAILY High cholesterol 02/05/20
cholecalciferol (vitamin D3) 25 mcg (1,000 unit) capsule (Vitamin D3) 1,000 unit PO DAILY Supplement 02/05/20
tamsulosin 0.4 mg capsule (Flomax) 0.4 mg PO HS Urinary issue 02/05/20
cetirizine 10 mg tablet 10 mg PO DAILYPRN PRN allergies 07/29/20
ezetimibe 10 mg tablet 10 mg PO DAILY High cholesterol 07/29/20
aspirin 81 mg chewable tablet 81 mg PO DAILY Blood clot prevention/tx #0 tabs 08/02/20
cyanocobalamin (vitamin B-12) 1,000 mcg tablet 1,000 mcg PO DAILY Supplement #30 tabs 08/02/20
febuxostat 40 mg tablet 40 mg PO DAILY Gout 08/29/21
sevelamer carbonate 800 mg tablet (Renvela) 2,400 mg PO MEALS phosphate binder 01/30/22
alprazolam 0.5 mg tablet 0.5 mg PO HSPRN PRN anxiety 05/30/23
ketotifen fumarate 0.025 % (0.035 %) eye drops 1 drp BOTH EYES DAILYPRN PRN irritated eyes 05/30/23
sacubitril 24 mg-valsartan 26 mg tablet (Entresto) 1 tab PO QPM Heart Failure 08/16/23
acetaminophen 500 mg tablet (Tylenol Extra Strength) 1,000 mg PO Q6HPRN PRN mild pain 04/07/24
Home Medication Changes
Pending Results: No
[2024-04-10] MEDS: ROXICODONE 5 MG PO (10:51)
--- NOTE | 2024-04-10 11:20 | W.PN.NEPH.HD ---
Assessment
-
pt seen during HD
vitals stable
hb up today
UF as tolerated to EDW
AVF functions well
for d/c after HD today
Progress Note - Hemodialysis
-
Date of Service: April 10, 2024
Duration: 30 minutes and 3 hours
Potassium Bath: 2
Calcium Bath: 2.5
Opti-Dialyzer: 160
Ultrafiltration: Other (1-1.5kg)
Blood Flow: 400
Dialysate Flow: 600
Heparin: no
EPO: 2000
--- NOTE | 2024-04-10 13:00 | CM ---
Addendum entered by Blessing Em 04/10/24 16:00:
IMM explained & signed. In chart
Original Note:
Patient seen at bedside with and daughter.
Patient had dialysis today
Case management consult completed.
PT recommends HH
Reviewed options - prefer [facility]
Liaison notified. Referral entered in careport
PLAN: Home, [facility] Phone - [phone],
[2024-04-10] MEDS: TYLENOL 650 MG PO (13:10)
[2024-04-10] MEDS: LIPITOR 80 MG PO (13:12)
[2024-04-10] MEDS: RENVELA PO (13:12)
[2024-04-10] MEDS: RENVELA 2400 MG PO ×2 (13:12→17:28)
[2024-04-10] MEDS: PROTONIX 40 MG PO (13:13)
[2024-04-10] MEDS: LOW STRENGTH ASPIRIN 81 MG PO (13:13)
--- NOTE | 2024-04-10 13:31 | VNURNOTE ---
Home Health Liaison met with patient to discuss [facility] nurse/therapy, visits, schedule and homebound status. Patient is agreeable and understands that visits at home will be 2-3 x per week to assess and teach medical management. [facility] brochure provided
with contact information. Patient is aware that [facility] will contact them for start of care in 1-2 days after discharge from .
[facility] referral completed in [facility] Port.
--- NOTE | 2024-04-10 14:04 | W.PN.UPDATE ---
Update Note
Progress Note Update
[place] texted by RN that family requesting update/concerns over patient discharge status, responded to bedside quickly. Upon arrival to room patient now with change in mental status from AM assessment, now appears confused and weak. He is post HD
treatment and did receive PRN oxycodone at 11am. He is aware of location, year, name, , and date; but cannot recall reason for admission, recent medical events, or that he had a procedure done. He has equal strength at BL UE and LE, facial
symmetry, and clear speech. He is sitting in chair in no distress. Vital signs stable. He does endorse mild left sided flank pain. Puncture site CDI, no evidence of hematoma, ABD flat, non-tender, and on-distended. He ate lunch without difficulty
and denies nausea or vomiting. Given new assessment of confusion, will cancel discharge. Suspect narcotic induced confusion but will obtain urgent CBC/BMP and head CT to role out an acute process. Reviewed PE and ROS with attending Dr. Luis Alberto Cole
who agrees with plan.
--- NOTE | 2024-04-10 16:53 | W.PN.UPDATE ---
Update Note
Progress Note Update
Patient reassessed, vastly improved regarding confusion. Endorses he feels much better and is sitting in chair comfortably. CT head negative for acute changes. Blood work still pending. Vital signs remain stable.
[2024-04-10] MEDS: DULCOLAX 10 MG RECTAL (17:26)
[2024-04-10] MEDS: ENTRESTO 24 MG/26 MG PO (17:30)
[2024-04-10 18:22] LABS: Hematocrit 35.3 % (39.0-52.0); Hemoglobin 11.4 g/dL (13.0-18.0); Mean Corp Hgb Conc. 32.3 g/dL (33.0-37.0); Mean Corpuscular Volume 108.3 fL (80.0-94.0); Mean Platelet Volume 11.6 fL (7.4-10.4); Platelet Count 120 10^3/uL (130-400); Red Blood Cell Count 3.26 10^6/uL (4.70-6.10); Red Cell Dist. Width 14.4 % (11.5-14.5); White Blood Cell Count 12.9 10^3/uL (4.8-10.8)
[2024-04-10 18:42] LABS: Magnesium 2.4 mg/dl (1.6-2.3)
[2024-04-10 18:47] LABS: Blood Urea Nitrogen 33 mg/dl (9-20); Calcium 9.1 mg/dl (8.4-10.2); Carbon Dioxide 25 mmol/L (22-30); Chloride 91 mmol/L (98-107); Estimated Creatinine Clearance 12 ml/min; Glucose 119 mg/dl (70-99); Potassium 4.2 mmol/L (3.5-5.1); Sodium 133 mmol/L (135-145); eGFR 11.87
--- NOTE | 2024-04-10 19:38 | PTCARENOTE ---
pt failed video swallow, along with cancer a discussion of comfort care was discussed, family is deciding. diet down graded. in room. 3l O2. po meds ok.
--- NOTE | 2024-04-10 20:01 | PTCARENOTE ---
pt became confused after 5mg oxycodone given at 1100. Family arrived and noted some differences. Notified KIERAN Salas she did confirm confusion stat CT labs and EKG. CT neg. pt is still with confused language at times at 1830. suppository given for
constipation with + results. night custodian nurse placing bed alarm
[2024-04-11 03:09] VITALS: BP 108/58
[2024-04-11 05:55] VITALS: BMI 26.4
[2024-04-11 06:00] VITALS: BMI 26.4
[2024-04-11 07:05] VITALS: BP 115/40
[2024-04-11 07:06] LABS: Hematocrit 31.6 % (39.0-52.0); Hemoglobin 10.5 g/dL (13.0-18.0); Mean Corp Hgb Conc. 33.2 g/dL (33.0-37.0); Mean Corpuscular Hgb 35.4 pg (27.0-31.0); Mean Corpuscular Volume 106.4 fL (80.0-94.0); Mean Platelet Volume 11.6 fL (7.4-10.4); Platelet Count 115 10^3/uL (130-400); Red Blood Cell Count 2.97 10^6/uL (4.70-6.10); Red Cell Dist. Width 14.2 % (11.5-14.5); White Blood Cell Count 11.5 10^3/uL (4.8-10.8)
[2024-04-11 07:41] LABS: Blood Urea Nitrogen 44 mg/dl (9-20); Calcium 8.9 mg/dl (8.4-10.2); Carbon Dioxide 27 mmol/L (22-30); Chloride 93 mmol/L (98-107); Estimated Creatinine Clearance 9 ml/min; Glucose 104 mg/dl (70-99); Magnesium 2.4 mg/dl (1.6-2.3); Potassium 4.1 mmol/L (3.5-5.1); Sodium 134 mmol/L (135-145); eGFR 8.41
[2024-04-11] MEDS: PROTONIX 40 MG PO (07:48)
[2024-04-11] MEDS: RENVELA 2400 MG PO ×2 (07:48→14:15)
[2024-04-11] MEDS: LOW STRENGTH ASPIRIN 81 MG PO (07:48)
[2024-04-11] MEDS: LIPITOR 80 MG PO (07:48)
[2024-04-11] MEDS: TYLENOL 650 MG PO (10:30)
[2024-04-11 11:34] VITALS: BP 108/46
--- NOTE | 2024-04-11 11:49 | W.PN.NEPH.PH ---
Today's Communication / Plan
-
HD Saturday if still here
Assessment/Plan
-
Impression
End-stage renal disease Saturday for
Status post right iliac stent
Anemia
Hyperkalemia
Hyperphosphatemia
Cardiomyopathy with ejection fraction of 30%
Peripheral vascular disease
Coronary artery disease with history of CABG
Hypertension
Plan:
d/c held for confusion
seem improved , CT head neg
metabolic parameters are acceptable
Maintain sevelamer for hyperphosphatemia
-Appropriate dietary restrictions and fluid restriction for ESRD
BP soft on ENtresto
-
-
Date of Service: April 11, 2024
CC / HPI / ROS
-
Chief Complaint:
ESRD
History of Present Illness:
ESRD Saturday
soft BPs
no fever, CT head neg
confusion felt from narcs
Review of Systems:
No chest pain or shortness of breath
Some residual right groin pain
Labs
-
Labs:
WBC 11.5 10^3/uL (4.8-10.8) H 04/11/24 05:49
RBC 2.97 10^6/uL (4.70-6.10) L 04/11/24 05:49
Hgb 10.5 g/dL (13.0-18.0) L 04/11/24 05:49
Hct 31.6 % (39.0-52.0) L 04/11/24 05:49
Plt Count 115 10^3/uL (130-400) L 04/11/24 05:49
Sodium 134 mmol/L (135-145) L 04/11/24 05:49
Potassium 4.1 mmol/L (3.5-5.1) 04/11/24 05:49
Chloride 93 mmol/L (98-107) L 04/11/24 05:49
Carbon Dioxide 27 mmol/L (22-30) 04/11/24 05:49
BUN 44 mg/dl (9-20) H 04/11/24 05:49
Creatinine 6.4 mg/dL (0.7-1.3) H* 04/11/24 05:49
eGFR 8.41 04/11/24 05:49
Glucose 104 mg/dl (70-99) H 04/11/24 05:49
Calcium 8.9 mg/dl (8.4-10.2) 04/11/24 05:49
Phosphorus 6.6 mg/dl (2.5-4.5) H 04/09/24 05:20
Albumin 3.4 g/dl (3.5-5.0) L 04/09/24 05:20
Physical Exam
-
Vital Signs:
Vital Signs
Temp Pulse Resp BP Pulse Ox
97.7 F 74 16 108/46 94
04/11/24 11:34 04/11/24 11:34 04/11/24 11:34 04/11/24 11:34 04/11/24 11:34
Cardiovascular:: Regular rate and rhythm
Respiratory:: Bilateral: CTA
Lung Excursion:: Normal
Abdomen:: Nontender and Soft
Extremity Edema:: None: Bilateral:
Cole Catheter: No
--- NOTE | 2024-04-11 14:30 | CM ---
Pt for discharge today
Plan - Home with [facility], [place] Phone - [phone],
[2024-04-11 14:32] VITALS: BP 146/73
--- NOTE | 2024-04-11 14:39 | W.PN.VS ---
Today's Communication / Plan
-
see plan below for today 04/11/24.
Assessment/Plan
-
Postop day 4 covered stent to right iliac artery
Plan
- Discharge today.
-
Total Time Spent with Patient (in minutes): 10
Subjective Data
-
Date of Service: April 11, 2024
No complaints. No confusion, better oriented today.
Objective Data
-
Vital Signs
Temp Pulse Resp BP Pulse Ox
97.3 F 82 16 146/73 98
04/11/24 14:32 04/11/24 14:32 04/11/24 14:32 04/11/24 14:32 04/11/24 14:32
Intake and Output
04/10/24 04/11/24 04/12/24
06:59 06:59 06:59
Intake Total 360 / 360 120 / 120
Balance 360 / 360 120 / 120
Intake:
Oral fluids 360 / 360 120 / 120
Other:
Number of approximated MODERATE 5
amounts of urine
Number of unmeasured liquid
stools
Rectum 3
Lab Results
04/11/24 05:49
04/11/24 05:49
Calcium 8.9 mg/dl (8.4-10.2) 04/11/24 05:49
Phosphorus 6.6 mg/dl (2.5-4.5) H 04/09/24 05:20
Magnesium 2.4 mg/dl (1.6-2.3) H 04/11/24 05:49
Total Bilirubin 1.2 mg/dl (0.2-1.3) 04/09/24 05:20
Direct Bilirubin 1.0 mg/dl (0.0-0.4) H 04/08/24 05:19
AST 39 U/L (17-59) 04/09/24 05:20
ALT 31 U/L (0-50) 04/09/24 05:20
Alkaline Phosphatase 95 U/L (38-126) 04/09/24 05:20
Total Protein 6.2 g/dl (6.3-8.2) L 04/09/24 05:20
Albumin 3.4 g/dl (3.5-5.0) L 04/09/24 05:20
Physical Exam
-
He is awake and alert. No acute distress. Breathing is unlabored. Abdomen soft, nondistended, nontender. Groins flat bilaterally. Feet are both warm.
[2024-04-11 15:12] VITALS: O2SAT 100
--- NOTE | 2024-04-13 15:40 | W.DCSUMMARY ---
Discharge Summary
Discharge Data
Date of Admission: 04/07/24
Date of Discharge: 04/11/24
-
Pending Results: No
Hospital Course
Attending: Kelsey
Consultants: Pulmonary medicine, Nephrology
Allergies: Plavix, Iodinated contrast media, penicillin
Procedure with date: Ultrasound-guided access to the the right common femoral artery. Right pelvic and lower extremity arteriogram. 8 x 59 VBX stent placement in the right common iliac artery. 7 x 5 cm Viabahn placement in the right external iliac
artery. Balloon angioplasty of the right common iliac artery with a 9 x 40, 10 x 40, and 12 x 40 balloons on 04/07/2024 Dr. Kathya Alejandra
History of present illness: The patient is an 74 -year-old male with multiple medical conditions including: end stage renal disease, HD, cardiomyopathy, anemia, anxiety, peripheral vascular disease, CAD, and COPD who presented to [facility] as an
ED to ED transfer from [facility] for right iliac artery rupture and hematoma.
Hospital Course: Briefly, the patient underwent emergent right lower extremity angiogram with stent placement to right common iliac artery for ruptured iliac artery without complications, patient was transferred to intensive care unit per protocol
for continued hemodynamic monitoring. [facility] consulted to aid in medical management from a critical care perspective. Nephrology consulted for management of hemodialysis and hyperkalemia. Post operatively patient with potassium level of 5.5,
patient was treated with Kayexalate and follow up BMP for continue monitoring. POD #1 (04/08/2024) Patient with continued hyperkalemia treated with hemodialysis session. Bilateral puncture groin sites clean, dry, and intact. Arterial line
discontinued. POD#2 (04/09/24) Hyperkalemia resolved. Unable to start additional antiplatelet medication as patient has history of GI bleed. POD# 3 (04/10/24) Bilateral groin puncture sites clean, dry, and intact. Physical therapy recommend discharge
to home. Patient stable for discharge following hemodialysis session. In afternoon following hemodialysis and receiving a dose of by mouth narcotic patient became acutely confused. Discharge canceled and head CT scan obtained that was negative for
acute changes. Narcotics held. POD#4 (04/11/24) Acute confusion now resolved. Patient stable for discharge to home.
Prescriptions and follow up appointment are included in the DC summary core maker note. All instructions were given to the patient in both written and verbal form and the patient expressed understanding.
Discharge Plan
-
Patient Disposition: Home with Home Care
Discharge Diagnosis/Procedures: Right iliac artery stent
Condition: Fair
Diet: As tolerated and 2 Gram Sodium
Activity: No strenuous activity
Driving Restrictions: No driving for 1 week
Bathing Restrictions: OK to Shower
Others Tests: You need to obtain a CT scan prior to your vascular surgery follow-up we recommend you schedule the scan the week of 04/27/24- 05/01/24 please call our central scheduling department at [phone]. This CT scan will use contrast dye
and you have indicated you are allergic, we have electronically sent prescriptions for premedication for your contrast dye allergy to your pharmacy on record ([facility]). Please take these medications as prescribed prior to your CT scan.
Other Services: VN
Stand Alone Forms: DC Instr - Vascular OR
Referrals:
Kathya Deal PA-C [Specified Professional Personl] - 05/07/24 1:00 pm
UNKNOWN - PT DOES,NOT KNOW [Family Provider] -
Prescriptions:
Continued
atorvastatin 80 MG tablet
80 mg PO DAILY
tamsulosin [Flomax] 0.4 MG capsule
0.4 mg PO HS
cholecalciferol (vitamin D3) [Vitamin D3] 1,000 UNIT capsule
1,000 unit PO DAILY
cetirizine 10 MG tablet
10 mg PO DAILYPRN PRN (Reason: allergies)
ezetimibe 10 MG tablet
10 mg PO DAILY
cyanocobalamin (vitamin B-12) 1,000 MCG tablet
1,000 mcg PO DAILY Qty: 30 0RF
aspirin 81 MG tablet,chewable
81 mg PO DAILY Qty: 0 0RF
febuxostat 40 MG tablet
40 mg PO DAILY
sevelamer carbonate [Renvela] 800 mg Tablet
2,400 mg PO MEALS
ketotifen fumarate 0.025 % (0.035 %) Drops
1 drp BOTH EYES DAILYPRN PRN (Reason: irritated eyes)
alprazolam 0.5 MG tablet
0.5 mg PO HSPRN PRN (Reason: anxiety)
sacubitril-valsartan [Entresto] 24-26 mg Tablet
1 tab PO QPM
acetaminophen [Tylenol Extra Strength] 500 mg Tablet
1,000 mg PO Q6HPRN PRN (Reason: mild pain)
Discharge Orders:
Discharge Patient (As Directed); Ordered 04/11/24
Ordered By: Moise Rodriguez
Care Plan Goals
Care Plan Goals:
Problem: Readiness for enhanced knowledge related to diagnosis and treatment plan
Goal: Understand your diagnosis and treatment plan needs, including medications if applicable.
Instructions: Know your diagnosis, underlying causes and treatment plan options, including medications if applicable. Consult with your health care team to learn about your diagnosis and treatment plan, including medications if applicable.
Discharge Date and Time
Discharge Date/Time: 04/11/24 15:42
Print Language: DIVEHI
== END 2024-04-11 15:42 | disposition home health service (06) | DRG 252 ==
LOC: 2 NORTH 21:14
PROVIDERS: Anesthesiology; Internal Medicine; Nurse Practitioner; Nurse Practitioner Acute Care; Nurse Practitioner Family; Surgery; ADMITTING PHYSICIAN Surgery Vascular Surgery; CONSULT PHYSICIAN Internal Medicine Critical Care Medicine; EMERGENCY PHYSICIAN Emergency Medicine; OTHER PHYSICIAN Specialist
PROC: B41C1ZZ Fluoroscopy of Pelvic Arteries using Low Osmolar Contrast (ICD-10-PCS; 2024-04-07)
PROC: 047H34Z Dilation of Right External Iliac Artery with Drug-eluting Intraluminal Device, Percutaneous Approach (ICD-10-PCS; 2024-04-07)
PROC: B41F1ZZ Fluoroscopy of Right Lower Extremity Arteries using Low Osmolar Contrast (ICD-10-PCS; 2024-04-07)
PROC: 047C34Z Dilation of Right Common Iliac Artery with Drug-eluting Intraluminal Device, Percutaneous Approach (ICD-10-PCS; 2024-04-07)
PROC: 5A1D70Z Performance of Urinary Filtration, Intermittent, Less than 6 Hours Per Day (ICD-10-PCS; 2024-04-08)
DX: I77.2 Rupture of artery (principal); N18.6 End stage renal disease; I13.2 Hypertensive heart and chronic kidney disease with heart failure and with stage 5 chronic kidney disease, or end stage renal disease; I42.9 Cardiomyopathy, unspecified; N25.81 Secondary hyperparathyroidism of renal origin; I50.22 Chronic systolic (congestive) heart failure; E87.20 Acidosis, unspecified; E87.5 Hyperkalemia; J43.9 Emphysema, unspecified; N40.0 Benign prostatic hyperplasia without lower urinary tract symptoms; D69.59 Other secondary thrombocytopenia; I27.20 Pulmonary hypertension, unspecified; D64.9 Anemia, unspecified; E83.39 Other disorders of phosphorus metabolism; F41.9 Anxiety disorder, unspecified; I73.9 Peripheral vascular disease, unspecified; I25.10 Atherosclerotic heart disease of native coronary artery without angina pectoris; R41.82 Altered mental status, unspecified; S70.01XA Contusion of right hip, initial encounter; X58.XXXA Exposure to other specified factors, initial encounter; Y93.9 Activity, unspecified; Y92.9 Unspecified place or not applicable; E78.00 Pure hypercholesterolemia, unspecified; Z99.2 Dependence on renal dialysis; Z91.041 Radiographic dye allergy status; Z88.0 Allergy status to penicillin; Z88.8 Allergy status to other drugs, medicaments and biological substances; Z79.82 Long term (current) use of aspirin; Z95.1 Presence of aortocoronary bypass graft; Z87.891 Personal history of nicotine dependence; I25.2 Old myocardial infarction; Z86.79 Personal history of other diseases of the circulatory system; Z82.49 Family history of ischemic heart disease and other diseases of the circulatory system
CPT/HCPCS: 37221; 37223; 70450; 71045; 75710; 80048; 80051; 80053; 82248; 82962; 83036; 83735; 84100; 85014; 85018; 85025; 85027; 85610; 85730; 86850; 86900; 86901; 87070; 93005; 97116; 97162; 97166; 97530; 99285; C1725; C1769; C1874; C1876; C1894; G0257; P9047; Q5106; Q9967

== ENCOUNTER 2024-04-15 10:37 | Emergency (ER) | payer MEDICARE, SELFPAY ==
[2024-04-15 11:07] VITALS: BP 111/47
--- NOTE | 2024-04-15 11:20 | ED.GENMED ---
ED Provider Triage
<Charlotte Ackerman PA-C - Last Filed: 04/15/24 11:30>
-
Patient seen by provider in Triage?: Seen in Triage
74-year-old male postop day 8 after a right common iliac artery stent placement after a rupture and hematoma doing well until this morning
He developed right foot pain, mostly in the second toe but also the great toe and third toe. They are red and very tender.
He denies trauma
has had some groin pain since surgeyr but nothing new
A medical screening examination has been initiated by a qualified medical provider. Based on the assessment performed at this time, it has been determined that an emergent medical condition may exist and the patient has been informed that further
medical evaluation and possible additional diagnostic testing may be needed.
HPI: This is a medical evaluation conducted in person to initiate diagnostic evaluation and provide initial therapeutics. Please see further documentation by the treating clinician.
GENERAL: Alert , in no apparent distress
Right lower extremity, red toes especially the second toe which is significantly tender, no ulcerations,
He does have a very faint Doppler DP pulse, and easier dopplered and palpated PT pulse
ENT: No visible abnormalities
LUNGS: No acute respiratory distress
NEUROLOGICAL: Alert and oriented
SKIN: Skin intact. No visible changes.
MUSCULOSKELETAL: Right foot pain
PSYCH: Normal and appropriate interaction.
I discussed this case with Dr. Rodriguez on-call for vascular surgery who recommended a duplex right lower extremity and a aortic iliac ultrasound. Please call Dr. Rodriguez with results
History of Present Illness
<Charlotte Ackerman PA-C - Last Filed: 04/15/24 11:30>
General
Chief Complaint: Vascular Access Problem
Time Seen by Provider: 04/15/24 13:26
<Jaret Zarate PA-C - Last Filed: 04/15/24 19:47>
General
Source: patient
History of Present Illness
History of Present Illness:
74-year-old male dialysis patient stopped dialysis 30 minutes early today secondary to acute onset of pain to the second and third toes of the right foot. He was recently discharged from this hospital for emergent arteriogram secondary to iliac
artery bleeding. A stent was placed. He was discharged then to home. He was vies to come here after dialysis to be evaluated by the vascular team. He denies chest pain or shortness of breath. He only notes pain to the toes on the right foot.
Phy Exam
<Jaret Zarate PA-C - Last Filed: 04/15/24 19:47>
Physical Exam
Physical Exam:
General: Well-appearing male no acute respiratory distress
HEENT: Normocephalic atraumatic
Heart: Regular rate and rhythm no murmurs
Lungs: Clear no wheeze
Extremities: No cyanosis
Vascular: Easily dopplerable pulse dorsal aspect left foot. Hard to find pulse on the right foot thought I did hear some monophasic flow over the dorsum of the foot however this was transient the right foot is warm to the touch as are the toes
Course
<Charlotte Ackerman PA-C - Last Filed: 04/15/24 11:30>
Orders/Labs/Results
Orders:
Orders
04/15/24 11:27
Lower Ext Arterial & BJ US [US Periph Art LOWER Ext w BJ] Urgent
Comment:
Reason For Exam: right leg only BJ AND TBI
US Aorta/Iliac Doppler Urgent
Comment:
Reason For Exam: s/p r common iliac stent; right foot pain
04/15/24 11:30
Complete Blood Count/With Diff Urgent
Comprehensive Metabolic Panel Urgent
PTT Urgent
Prothrombin Time Urgent
04/15/24 15:59
CT Abd Aorta Angio W/ Run Off Urgent
Comment:
Reason For Exam: right leg pain, eval iliac arter occlusion
04/15/24 16:01
Diphenhydramine [Benadryl] 50 mg IV NOW STA
Hydrocortisone Sod Succinate [Solu-Cortef] 200 mg IV NOW STA
Abnormal Lab Results
04/15/24
11:30
RBC 3.03 L 10^6/uL
(4.70-6.10)
Hgb 10.7 L g/dL
(13.0-18.0)
Hct 33.8 L %
(39.0-52.0)
MCV 111.6 H fL
(80.0-94.0)
MCH 35.3 H pg
(27.0-31.0)
MCHC 31.7 L g/dL
(33.0-37.0)
RDW 16.2 H %
(11.5-14.5)
MPV 11.4 H fL
(7.4-10.4)
Abs Immat Gran (auto) 0.1 H 10^3/uL
(0-0.05)
Absolute Lymphs (auto) 4.3 H 10^3/uL
(1.2-3.4)
Absolute Monos (auto) 1.0 H 10^3/uL
(0.1-0.6)
Immature Gran % 1.2 H %
(0-0.5)
Neutrophils % 40.2 L %
(42.2-75.2)
Monocytes % 10.6 H %
(1.7-9.3)
Chloride 95 L mmol/L
(98-107)
Carbon Dioxide 32 H mmol/L
(22-30)
BUN 22 H mg/dl
(9-20)
Creatinine 4.0 H mg/dL
(0.7-1.3)
Glucose 106 H mg/dl
(70-99)
Total Bilirubin 1.5 H mg/dl
(0.2-1.3)
Alkaline Phosphatase 184 H U/L
(38-126)
04/15/24 11:30
04/15/24 11:30
Vital Signs
Initial and Last Documented VS:
Initial Vital Signs
Temp Pulse Resp BP Pulse Ox
97.8 F 76 20 111/47 99
04/15/24 11:07 04/15/24 11:07 04/15/24 11:07 04/15/24 11:07 04/15/24 11:07
Last Documented Vital Signs
Temp Pulse Resp BP Pulse Ox
97.8 F 72 18 112/72 99
04/15/24 11:07 04/15/24 18:07 04/15/24 18:07 04/15/24 18:07 04/15/24 18:07
<Jaret Zarate PA-C - Last Filed: 04/15/24 19:47>
Orders/Labs/Results
Orders:
Orders
04/15/24 11:27
Lower Ext Arterial & BJ US [US Periph Art LOWER Ext w BJ] Urgent
Comment:
Reason For Exam: right leg only BJ AND TBI
US Aorta/Iliac Doppler Urgent
Comment:
Reason For Exam: s/p r common iliac stent; right foot pain
04/15/24 11:30
Complete Blood Count/With Diff Urgent
Comprehensive Metabolic Panel Urgent
PTT Urgent
Prothrombin Time Urgent
04/15/24 15:59
CT Abd Aorta Angio W/ Run Off Urgent
Comment:
Reason For Exam: right leg pain, eval iliac arter occlusion
04/15/24 16:01
Diphenhydramine [Benadryl] 50 mg IV NOW STA
Hydrocortisone Sod Succinate [Solu-Cortef] 200 mg IV NOW STA
Abnormal Lab Results
04/15/24
11:30
RBC 3.03 L 10^6/uL
(4.70-6.10)
Hgb 10.7 L g/dL
(13.0-18.0)
Hct 33.8 L %
(39.0-52.0)
MCV 111.6 H fL
(80.0-94.0)
MCH 35.3 H pg
(27.0-31.0)
MCHC 31.7 L g/dL
(33.0-37.0)
RDW 16.2 H %
(11.5-14.5)
MPV 11.4 H fL
(7.4-10.4)
Abs Immat Gran (auto) 0.1 H 10^3/uL
(0-0.05)
Absolute Lymphs (auto) 4.3 H 10^3/uL
(1.2-3.4)
Absolute Monos (auto) 1.0 H 10^3/uL
(0.1-0.6)
Immature Gran % 1.2 H %
(0-0.5)
Neutrophils % 40.2 L %
(42.2-75.2)
Monocytes % 10.6 H %
(1.7-9.3)
Chloride 95 L mmol/L
(98-107)
Carbon Dioxide 32 H mmol/L
(22-30)
BUN 22 H mg/dl
(9-20)
Creatinine 4.0 H mg/dL
(0.7-1.3)
Glucose 106 H mg/dl
(70-99)
Total Bilirubin 1.5 H mg/dl
(0.2-1.3)
Alkaline Phosphatase 184 H U/L
(38-126)
04/15/24 11:30
04/15/24 11:30
Vital Signs
Initial and Last Documented VS:
Initial Vital Signs
Temp Pulse Resp BP Pulse Ox
97.8 F 76 20 111/47 99
04/15/24 11:07 04/15/24 11:07 04/15/24 11:07 04/15/24 11:07 04/15/24 11:07
Last Documented Vital Signs
Temp Pulse Resp BP Pulse Ox
97.8 F 72 18 112/72 99
04/15/24 11:07 04/15/24 18:07 04/15/24 18:07 04/15/24 18:07 04/15/24 18:07
<Jaret Zarate PA-C - Last Filed: 04/15/24 19:47>
MDM/Problems Addressed
Differential Diagnosis Includes:
Right second and third toe pain. Recent history of iliac artery stent placement secondary to iliac artery bleeding. I reviewed triage note. I also discussed with vascular team. The patient did have arterial ultrasound of the leg and abdomen.
Vascular team to see.
<Jaret Zarate PA-C - Last Filed: 04/15/24 19:47>
*Critical Care Note
Total Time (30-74mins, 75-104mins- exclusive of procedures): Not Applicable
<Jaret Zarate PA-C - Last Filed: 04/15/24 19:47>
Update Note
Update Note:
Patient reevaluated. He was seen by vascular surgery. It was recommended he obtain a CT angio of the aorta with runoff. I reviewed these studies and the report by radiology and sent the information to vascular. They feel all these findings are
chronic. Discussed with patient treatment options. His pain in his toe is slightly improved. Offered him admission for pain control and further evaluation by vascular team versus close follow-up with vascular team. He wished to go home. Return
precautions were given.
ED Attending Note
<Charlotte Ackerman PA-C - Last Filed: 04/15/24 11:30>
-
Portions of this chart may have been created with voice recognition software.� Occasional wrong word or��sound alike� substitutions may have occurred due to the inherent limitations of voice recognition software.
Discharge Plan
Departure
Patient Disposition: Home (Routine Discharge)
Date of Disposition: 04/15/24
Time of Disposition: 19:44
Patient with high blood pressure during this ER visit?: No
Discharge Problem:
Pain in toe
Instructions: Gout ED
Prescriptions:
New
prednisone 20 mg tablet
40 mg PO DAILY 5 Days Qty: 10 0RF
No Action
atorvastatin 80 MG tablet
80 mg PO DAILY
tamsulosin [Flomax] 0.4 MG capsule
0.4 mg PO HS
cholecalciferol (vitamin D3) [Vitamin D3] 1,000 UNIT capsule
1,000 unit PO DAILY
cetirizine 10 MG tablet
10 mg PO DAILYPRN PRN (Reason: allergies)
ezetimibe 10 MG tablet
10 mg PO DAILY
cyanocobalamin (vitamin B-12) 1,000 MCG tablet
1,000 mcg PO DAILY Qty: 30 0RF
aspirin 81 MG tablet,chewable
81 mg PO DAILY Qty: 0 0RF
febuxostat 40 MG tablet
40 mg PO DAILY
sevelamer carbonate [Renvela] 800 mg Tablet
2,400 mg PO MEALS
ketotifen fumarate 0.025 % (0.035 %) Drops
1 drp BOTH EYES DAILYPRN PRN (Reason: irritated eyes)
alprazolam 0.5 MG tablet
0.5 mg PO HSPRN PRN (Reason: anxiety)
sacubitril-valsartan [Entresto] 24-26 mg Tablet
1 tab PO QPM
acetaminophen [Tylenol Extra Strength] 500 mg Tablet
1,000 mg PO Q6HPRN PRN (Reason: mild pain)
Referrals:
Billy Lennon MD [Family Provider] -
Activity Restrictions/Additional Instructions:
Take prednisone as directed. Please return here for increasing pain. Otherwise follow-up with your vascular doctor for next available appointment for further evaluation
Interventions
Interventions:
*Risk Screen - Suicide Last Done: 04/15/24 11:07
*General Assessment Last Done: 04/15/24 11:07
*Neglect/Abuse Screening Last Done: 04/15/24 11:07
ED- Fall Risk Assessment Last Done: 04/15/24 13:53
Discharge Date and Time
Print Language: UPPER SORBIAN
[2024-04-15 11:42] LABS: Hematocrit 33.8 % (39.0-52.0); Hemoglobin 10.7 g/dL (13.0-18.0); Mean Corp Hgb Conc. 31.7 g/dL (33.0-37.0); Mean Corpuscular Hgb 35.3 pg (27.0-31.0); Mean Corpuscular Volume 111.6 fL (80.0-94.0); Mean Platelet Volume 11.4 fL (7.4-10.4); Platelet Count 139 10^3/uL (130-400); Red Blood Cell Count 3.03 10^6/uL (4.70-6.10); Red Cell Dist. Width 16.2 % (11.5-14.5); White Blood Cell Count 9.8 10^3/uL (4.8-10.8)
[2024-04-15 11:49] LABS: INR 0.92; PT 12.9 Sec (11.4-14.6)
[2024-04-15 12:18] LABS: Blood Urea Nitrogen 22 mg/dl (9-20); Glucose 106 mg/dl (70-99); Potassium 4.1 mmol/L (3.5-5.1); Sodium 136 mmol/L (135-145); eGFR 14.78
[2024-04-15 12:19] LABS: ALT (SGPT) 27 U/L (0-50); AST (SGOT) 46 U/L (17-59); Albumin 3.5 g/dl (3.5-5.0); Alkaline Phosphatase 184 U/L (38-126); Calcium 8.6 mg/dl (8.4-10.2); Carbon Dioxide 32 mmol/L (22-30); Chloride 95 mmol/L (98-107); Total Bilirubin 1.5 mg/dl (0.2-1.3); Total Protein 6.4 g/dl (6.3-8.2)
[2024-04-15 13:01] LABS: % Basophils 0.5 % (0-2); % Eosinophils 3.4 % (0-6); % Immature Granulocytes 1.2 % (0-0.5); % Lymphocytes 44.1 % (20.5-51.1); % Monocytes 10.6 % (1.7-9.3); % Neutrophils 40.2 % (42.2-75.2); Absolute Basophils 0.1 10^3/uL (0-0.2); Absolute Eosinophils 0.3 10^3/uL (0-0.7); Absolute Immature Granulocytes 0.1 10^3/uL (0-0.05); Absolute Lymphocytes 4.3 10^3/uL (1.2-3.4); Absolute Neutrophils 3.9 10^3/uL (1.4-6.5); Nucleated Red Blood Cells % 0 % (-)
[2024-04-15 14:39] VITALS: BP 110/72
[2024-04-15] MEDS: BENADRYL 50 MG IV (16:28)
[2024-04-15] MEDS: SOLU-CORTEF 200 MG IV (16:28)
[2024-04-15 18:07] VITALS: BP 112/72
== END 2024-04-15 20:35 | disposition home or self-care (01) ==
LOC: EMR 10:37
PROVIDERS: Physician Assistant; EMERGENCY PHYSICIAN Student in an Organized Health Care Education/Training Program; FAMILY PHYSICIAN Family Medicine
DX: M79.676 Pain in unspecified toe(s) (principal); I10 Essential (primary) hypertension; E78.00 Pure hypercholesterolemia, unspecified; Z87.891 Personal history of nicotine dependence; Z99.2 Dependence on renal dialysis
CPT/HCPCS: 99284; 96374; 96375; 75635; 80053; 85025; 85610; 85730; 93922; 93925; 93978; Q9967

== ENCOUNTER → 2024-07-23 12:48 | Outpatient (REF) | payer MEDICARE, SELFPAY | LOC: RAD 12:48 | PROVIDERS: ATTENDING PHYSICIAN Physician Assistant; FAMILY PHYSICIAN Family Medicine | DX: I73.9 Peripheral vascular disease, unspecified (principal) | CPT/HCPCS: 75635; Q9967 ==

== ENCOUNTER → 2024-07-30 12:39 | Outpatient (REF) | payer MEDICARE, SELFPAY | LOC: RAD 12:39 | PROVIDERS: ATTENDING PHYSICIAN Surgery Vascular Surgery; FAMILY PHYSICIAN Family Medicine; OTHER PHYSICIAN Physician Assistant | DX: I65.21 Occlusion and stenosis of right carotid artery (principal); I73.9 Peripheral vascular disease, unspecified | CPT/HCPCS: 93880; 93922 ==

== ENCOUNTER → 2024-09-08 13:47 | Outpatient (REF) | payer MEDICARE, SELFPAY | LOC: HWRAD 13:47 | PROVIDERS: ATTENDING PHYSICIAN Internal Medicine Critical Care Medicine; FAMILY PHYSICIAN Family Medicine | DX: R91.1 Solitary pulmonary nodule (principal) | CPT/HCPCS: 71250 ==

== ENCOUNTER → 2025-02-25 11:43 | Outpatient (REF) | payer MEDICARE, SELFPAY | LOC: RAD 11:43 | PROVIDERS: ATTENDING PHYSICIAN Radiology Radiation Oncology; FAMILY PHYSICIAN Family Medicine | DX: C34.32 Malignant neoplasm of lower lobe, left bronchus or lung (principal) | CPT/HCPCS: 71250 ==